=== PATIENT | female | born 1940 | race Caucasian/White ===

== ENCOUNTER 2020-12-03 10:17 | Outpatient (REF) | payer MEDICARE, SELFPAY ==
[2020-12-03 12:00] LABS: Anion Gap 13 (12-20); Blood Urea Nitrogen 15 mg/dL (9-16); Carbon Dioxide 31 mmol/L (22-29); Chloride 98 mmol/L (96-108); Estimated Glomerular Filt Rate > 60; Glucose Random 84 mg/dL (60-115); Sodium 138 mmol/L (135-145)
== END 2020-12-03 10:18 | disposition home or self-care (01) ==
LOC: HO.HMGCLDS 10:17
PROVIDERS: PCP Internal Medicine; Visit Provider Internal Medicine Cardiovascular Disease
DX: I10 Essential (primary) hypertension (principal)
CPT/HCPCS: 36415; 80048

== ENCOUNTER → 2021-01-02 14:04 | Outpatient (BNVA) | payer MEDICARE, SELFPAY | PROVIDERS: PCP Internal Medicine; Visit Provider Surgery Vascular Surgery | DX: I83.12 Varicose veins of left lower extremity with inflammation (principal) | CPT/HCPCS: 99202 ==

== ENCOUNTER 2021-02-15 09:32 | Outpatient (REF) | payer MEDICARE, SELFPAY ==
[2021-02-15 10:42] LABS: Alanine Aminotransferase 33 U/L (0-31); Albumin Level 3.9 g/dL (3.5-5.0); Alkaline Phosphatase 59 U/L (39-117); Anion Gap 11 (12-20); Aspartate Amino Transferase 22 U/L (5-31); Bilirubin Total 1.1 mg/dL (0.0-1.0); Blood Urea Nitrogen 18 mg/dL (9-16); Calcium 9.7 mg/dL (8.4-10.2); Carbon Dioxide 30 mmol/L (22-29); Chloride 105 mmol/L (96-108); Cholesterol 164 mg/dL; Estimated Glomerular Filt Rate 59; Glucose Fasting 80 mg/dL (60-99); HDL Cholesterol 63 mg/dL; LDL Cholesterol Calculated 88 mg/dl; Sodium 142 mmol/L (135-145); Total Protein 6.3 g/dL (6.5-8.0); Triglycerides 68 mg/dL
[2021-02-15 10:43] LABS: Magnesium 2.1 mg/dL (1.6-2.6)
== END 2021-02-15 09:33 | disposition home or self-care (01) ==
LOC: HO.LAB 09:32
PROVIDERS: Absent Provider Internal Medicine Cardiovascular Disease; PCP Internal Medicine; Referring Provider Internal Medicine; Visit Provider Internal Medicine
DX: E78.5 Hyperlipidemia, unspecified (principal); I10 Essential (primary) hypertension; I50.30 Unspecified diastolic (congestive) heart failure; H91.90 Unspecified hearing loss, unspecified ear
CPT/HCPCS: 36415; 80053; 80061; 83735

== ENCOUNTER 2021-02-24 10:35 | Outpatient (REF) | payer MEDICARE, SELFPAY ==
--- NOTE | ~2021-02-24 | US_ITS ---
EXAMINATION: RIGHT and LEFT LOWER EXTREMITY VENOUS ULTRASOUND (Reflux Exam) CLINICAL INDICATION: leg pain and varicose veins. COMPARISON: None. TECHNIQUE: Color flow triplex imaging and compression Doppler was performed to evaluate both the deep and the superficial systems bilaterally. To evaluate the superficial system, the examination was performed in the upright position. Color-flow Doppler ultrasound and compression ultrasound were utilized. In addition, maneuvers were utilized to demonstrate reflux. FINDINGS: 1. DEEP VENOUS ULTRASOUND OF THE RIGHT LOWER EXTREMITY: Respiratory variation, normal compression and augmented flow are noted in the right common femoral vein as well as the right popliteal vein and there is no evidence of deep venous thrombosis at these locations. There is no evidence of reflux in the deep system in either the common femoral vein or the popliteal vein. There is no evidence of a Pickard's cyst. 2. SUPERFICIAL ULTRASOUND WITH DOPPLER OF RIGHT LOWER EXTREMITY: The right great saphenous vein at the saphenofemoral junction measures 7 mm, at the mid thigh 2 mm, nipkx-ekt-ybwa 3 mm, mdbgt-fjw-qcbw 2 mm, at mid calf 2 mm and at the ankle measures 2 mm. There is right greater saphenous vein reflux measuring 3.3 seconds at the knee and 0.6 seconds below the knee. There is an accessory medial greater saphenous vein that measures 4 mm and does not demonstrate reflux. The right small saphenous vein measures 1-2 mm and shows no reflux. There is a varicosity at the knee that measures 4 mm and demonstrates 2.5 second reflux. There is a varicosity in the proximal calf that measures 3 mm and demonstrates 2.4 seconds reflux. 3. DEEP VENOUS ULTRASOUND OF THE LEFT LOWER EXTREMITY: Respiratory variation, normal compression and augmented flow are noted in the left common femoral vein as well as the left popliteal vein and there is no evidence of deep venous thrombosis at these locations. There is 1 second deep venous reflux in the common femoral vein and 0.8 seconds deep venous reflux in the popliteal vein.. There is no evidence of a Pickard's cyst. 4. SUPERFICIAL ULTRASOUND WITH DOPPLER OF LEFT LOWER EXTREMITY: Left great saphenous vein at the saphenofemoral junction measures 8 mm, at the mid thigh to mm, dmxer-xiz-gyln 3 mm, clpru-jvp-oywm 3 mm, at mid calf 2 mm and at the ankle measures 2 mm. There is left greater saphenous vein reflux from the ankle to above the knee measuring maximum 3.3 seconds. The left small saphenous vein measures 1 mm and shows no reflux. US/US venous duplex LE BI IMPRESSION: Right: No evidence of DVT or deep venous reflux. Right greater saphenous vein reflux measuring maximum 3.3 seconds at the knee. Left: No evidence of DVT. Deep venous reflux in the popliteal and common femoral veins. Left greater saphenous vein reflux measuring maximum 3.3 seconds above the knee.
== END 2021-02-24 10:36 | disposition home or self-care (01) ==
LOC: HO.US 10:35
PROVIDERS: Visit Provider Surgery Vascular Surgery
DX: I83.893 Varicose veins of bilateral lower extremities with other complications (principal); I83.12 Varicose veins of left lower extremity with inflammation
CPT/HCPCS: 93970

== ENCOUNTER → 2021-02-27 11:56 | Outpatient (BNVA) | payer MEDICARE, SELFPAY | PROVIDERS: PCP Internal Medicine; Visit Provider Surgery Vascular Surgery | DX: I83.12 Varicose veins of left lower extremity with inflammation (principal) | CPT/HCPCS: 99212 ==

== ENCOUNTER 2021-09-16 15:01 | Outpatient (REF) | payer MEDICARE, MEDICAID, SELFPAY ==
--- NOTE | ~2021-09-16 | XR_ITS ---
EXAMINATION: XR BILATERAL HIPS WITH AP PELVIS CLINICAL INFORMATION: Bilateral hip pain. Osteoarthritis. COMPARISON: None TECHNIQUE: AP view of the pelvis and 2 views of each hip were obtained. FINDINGS: No acute abnormality. No fracture or dislocation. Sacroiliac joints are normal. Hip joints are normal. Mild degenerative change of symphysis pubis. Marked degenerative spondylosis of the lower lumbar spine. There is a soft tissue ossification adjacent to the lesser trochanter of the left femur measuring approximately 3.8 x 2.2 cm in size. This could be due to old trauma. There is no abnormal periosteal reaction. There is no bone destruction. XR/XR hip BI w PEL1V IMPRESSION: Normal pelvis and bilateral hips. Marked degenerative spondylosis lower lumbar spine. Soft tissue ossification adjacent to the lesser trochanter of the left femur.
== END 2021-09-16 15:02 | disposition home or self-care (01) ==
LOC: HO.HMGCX 15:01
PROVIDERS: PCP Internal Medicine; Visit Provider Internal Medicine
DX: M16.12 Unilateral primary osteoarthritis, left hip (principal)
CPT/HCPCS: 73521

== ENCOUNTER 2021-09-19 11:52 | Outpatient (REF) | payer MEDICARE, MEDICAID, SELFPAY ==
[2021-09-19 15:18] LABS: Appearance Urine CLEAR; Color Urine YELLOW; Glucose Urine UA NEG (NEG); Leukocyte Esterase Urine NEG (NEG); Nitrite Urine NEG (NEG); PH 6.5 (5.0-8.0); Specific Gravity - Urine <= 1.005 (1.005-1.025); Urine Blood NEG (NEG); Urine Ketones NEG (NEG); Urine Protein NEG (NEG-TRACE)
== END 2021-09-19 11:53 | disposition home or self-care (01) ==
LOC: HO.HMGCLDS 11:52
PROVIDERS: Visit Provider Internal Medicine
DX: R30.0 Dysuria (principal)
CPT/HCPCS: 81003

== ENCOUNTER 2021-11-20 11:05 | Outpatient (REF) | payer MEDICARE, MEDICAID, SELFPAY ==
--- NOTE | ~2021-11-20 | XR_ITS ---
EXAMINATION: XR CHEST CLINICAL INFORMATION: Cough COMPARISON: None TECHNIQUE: 2 views of the chest were obtained. FINDINGS: Heart size within normal limits. Bibasilar atelectasis is present. There is flattening of the diaphragms suggesting underlying COPD. No focal consolidations, pleural effusions or lung masses are seen. XR/XR chest 2V IMPRESSION: No acute intrathoracic disease. Question of underlying COPD
== END 2021-11-20 11:06 | disposition home or self-care (01) ==
LOC: HO.HMGCX 11:05
PROVIDERS: PCP Internal Medicine; Visit Provider Internal Medicine
DX: R05.9 Cough, unspecified (principal)
CPT/HCPCS: 71046

== ENCOUNTER 2023-02-10 14:32 | Outpatient (AMB) | payer MEDICARE, MEDICAID, SELFPAY ==
--- NOTE | 2023-02-10 14:43 | MHC.OFFWIV ---
Intake Vital Signs 02/10/23 14:46 Height 5 ft 5 in BP 140/70 H Blood Pressure Location Rt brachial Position Sitting Pulse 80 Pulse Source Pulse Oximeter Pulse Oximetry (%) 96 Intake Visit Reasons: EP Cough(lobby) Intake Note: pt is here for cough Patient Tobacco Use Status: Never used Tobacco Allergies No Known Allergies Allergy (Verified 02/10/23 14:45) HPI HPI Comments History of Present Illness Details 82-year-old female presenting with dry cough, fatigue, malaise, fevers, chills for over a week worsening.? Patient reports her cough is not improved despite taking benzonatate.? Has not yet had antibiotics.? Patient denies chest pain, shortness of breath, fevers, chills, sputum production, nausea, vomiting, abdominal pain, headache, vision changes, dizziness and weakness.? No sick contacts. Physical exam benign.? Vital signs stable.? 96% on room air even after ambulation. This is likely bacterial bronchitis at this point versus allergies.? Unlikely pneumonia, PE anticoagulated, unlikely atypical presentation of ACS.? No signs of pneumothorax. No sign sof sepsis Plan doxycycline, albuterol, prednisone and Robitussin.? Advised her to stop taking benzonatate.? Robitussin can increase blood pressure however patient's blood pressure is stable at this time well controlled with blood pressure medicines.? Educated patient on diagnosis and treatment plan, answered all question, patient verbalizes understanding.? At this time patient will be discharged home, advised to return with new or worsening symptoms.? Educated on worrisome signs and symptoms and when to return.? At this time I feel comfortable COUNT INCLUDES THE [facility] Medical History Atrial fibrillation Cough Depression Diastolic CHF Dysuria Ear pain, left Edema GERD (gastroesophageal reflux disease) Hearing loss HTN (hypertension) Hyperlipidemia Light sensitivity Radiculopathy of cervical spine Sciatica Shoulder pain, right Venous insufficiency (chronic) (peripheral) Surgical History H/O colonoscopy No pertinent past surgical history Family History Father No problems noted. Mother No problems noted. Sister No problems noted. Sister No problems noted. Son No problems noted. Daughter No problems noted. Social History Housing: House Alcohol intake: current Patient Tobacco Use Status: Never used Tobacco e-Cigarette/Vaping Use: Never Used Current occupational status: retired Cognitive needs: No Hearing needs: No Vision needs: Yes Review of Systems Const Details: Constitutional : No Weight loss, + Fever, + Chills, + Fatigue, + Malaise ENT/Mouth : No sore throat, No Rhinorrhea Eyes: No Eye Pain, No Swelling, No Redness Cardiovascular : No Chest Pain, No SOB, No Dyspnea on Exertion, No Orthopnea, No Edema, No Palpitations Respiratory : + Cough, No Sputum, No Wheezing Gastrointestinal : No Nausea, No Vomiting, No Diarrhea, No Constipation, No abdominal Pain, No Hematochezia, No Melena Genitourinary : No Dysuria, No Urinary Frequency, No Hematuria, Musculoskeletal : No joint pain, No Myalgias, No Joint Swelling Skin : No Skin Lesions, No rash Neuro : No Weakness, No Numbness, No Dizziness, No Headache Psych : No Anxiety/Panic, No Depression All other systems reviewed and are negative All systems reviewed & are unremarkable except as noted in HPI and below Physical Exam Vital Signs: Last Vital Signs Pulse 80 02/10/23 14:46 BP 140/70 H 02/10/23 14:46 Pulse Ox 96 02/10/23 14:46 vss Appearance: Alert.? Oriented X3.? No acute distress.?Intermittent dry cough throught my exam Head: Normocephalic, atraumatic, no step-offs or deformities Eyes: Pupils equal, round and reactive to light.? ENT: Pharynx normal.? Neck: Normal inspection.? Neck supple.? CVS: Normal heart rate and rhythm.? Pulses normal.? Respiratory: No respiratory distress.? Breath sounds normal.? Abdomen: Soft and nontender.? Skin: Skin warm and dry.? Normal skin color.? Normal skin turgor.? Extremities: No lower extremity edema.? No calf ttp. 5/5 strength to bilateral upper and lower extremities Neuro: Oriented X 3.? No motor deficit.? No sensory deficit. CN 2-12 intact Results AMB Rapid Strep AMB Rapid Strep Negative Last Edit by Sb Anderson CMA on 02/10/23 14:58 Results Reviewed Results Reviewed: Laboratory Last Values Strep Scn Rapid Clinic Negative 02/10/23 14:57 Assessment & Plan Assessment & Plan (1) Bronchitis: Code(s): J40 - Bronchitis, not specified as acute or chronic Plan Take your medications as prescribed. If you were prescribed antibiotics today, it is important that you take your medication to their entirety, do not skip any doses, do not finish them early. Follow-up with your primary care provider this week. Return to the emergency department with new or worsening symptoms. Such as fevers, chills, chest pain, shortness of breath, nausea, vomiting, dizziness, headache, vision changes, lethargy In case of emergency call 911 Orders: Orders AMB Rapid Strep Screen Today Z13.9 - Encounter for screening, unspecified Medications: New doxycycline hyclate 100 mg PO BID 14 caps 0RF 7 days albuterol sulfate 90 mcg/actuation 2 puffs inhalation Q6H PRN 6.7 grams 0RF shortness of breath or wheezing prednisone 20 mg PO DAILY 5 tabs 0RF 5 days Coding Level of Care Code Est Pt Level 3 (47245) Diagnoses Bronchitis J40
[2023-02-10 14:46] VITALS: BP 140/70; PULSE 80; O2SAT 96
== END 2023-02-10 15:03 | disposition home or self-care (01) ==
PROVIDERS: PCP Internal Medicine; Visit Provider Physician Assistant
DX: J40 Bronchitis, not specified as acute or chronic (principal); Z13.9 Encounter for screening, unspecified; R50.9 Fever, unspecified
CPT/HCPCS: 87880; 99213

== ENCOUNTER 2023-02-19 10:12 | Outpatient (AMB) | payer MEDICARE, MEDICAID, SELFPAY ==
[2023-02-19 10:20] VITALS: BP 130/74; PULSE 86; O2SAT 99; BMI 27.3
--- NOTE | 2023-02-19 10:20 | A.OFFPC_ITS ---
Vital Signs 02/19/23 10:20 Height 5 ft 5 in Weight 164 lb BMI 27.3 BP 130/74 Blood Pressure Location Lt brachial Position Sitting Pulse 86 Pulse Source Pulse Oximeter Pulse Oximetry (%) 99 Oxygen Delivery Method Room Air Intake Visit Reasons: Follow up after walk in still coughing Intake Note: Pt is here today for a follow up visit after being seen in walk in. Pt states th at she is still coughing she has been having the cough for 3 weeks now. Allergies No Known Allergies Allergy (Verified 02/19/23 10:30) Medication List - Last Reconciled 02/19/23 by Alfreda Mathew MD albuterol sulfate 90 mcg/actuation 2 puffs inhalation Q6H PRN amoxicillin-pot clavulanate 875-125 mg 1 tab PO BID apixaban (Eliquis) 5 mg PO BID ascorbate calcium (vitamin C) 2 grams PO DAILY atorvastatin 40 mg PO DAILY calcium carbonate (Calcium 500) 1,000 mg PO DAILY cholecalciferol (vitamin D3) 25 mcg PO DAILY cranberry 500 mg PO DAILY dorzolamide-timolol 22.3-6.8 mg/mL ophthalmic (eye) fluoride (sodium) 1.1% 1 appl dental DAILY fluticasone propionate 50 mcg/actuation 1 spray intranasal BID PRN furosemide 20 mg PO BID gabapentin 100 mg PO TID garlic 5 mg PO DAILY oqjzdhjteze-T-Rlhlpixnfqjmmko (Triple Flex Mood, Joint JUVENAL-e) PO lactobacillus combination no.4 (Probiotic) 3,000 mmu cells PO DAILY lisinopril 40 mg PO DAILY mirtazapine 7.5 mg PO BEDTIME multivitamin 1 tab PO DAILY omega-3 fatty acids (Fish Oil Concentrate) 1,200 PO daily; omeprazole 40 mg PO DAILY spironolactone 12.5 mg PO DAILY valacyclovir 1,000 mg PO BID walker Walker with seat Tobacco use date assessed: 02/19/23 Fall risk assessment: 2 + Falls in past year Last assessed Fall Risk: 02/19/23 Dental Screening Dental Screen Date: 02/19/23 Did you have a dental visit in the last 12 months?: Yes Did you have a dental problem in the last 6 months where you did not have access to dental care?: No Was dental information given to patient?: Patient has dentist HPI Follow up after walk in still coughing HPI Details Pt presents complaining of persistent productive cough sinus congestion postnasal drip and poor appetite. Patient denies fever shortness of breath pleurisy. She took doxycycline and prednisone for 7 days. [facility] Medical History Atrial fibrillation Cough Depression Diastolic CHF Dysuria Ear pain, left Edema GERD (gastroesophageal reflux disease) Hearing loss HTN (hypertension) Hyperlipidemia Light sensitivity Radiculopathy of cervical spine Sciatica Shoulder pain, right Venous insufficiency (chronic) (peripheral) Surgical History H/O colonoscopy No pertinent past surgical history Family History (Updated 02/19/23 @ 10:32 by BRYAN Gregg) Father No problems noted. Mother No problems noted. Sister No problems noted. Sister No problems noted. Son No problems noted. Daughter No problems noted. Social History Housing: House Alcohol intake: current Patient Tobacco Use Status: Never used Tobacco e-Cigarette/Vaping Use: Never Used Current occupational status: retired Cognitive needs: No Hearing needs: No Vision needs: Yes Questionnaire Thrive Questionnaire Date Thrive assessed: 11/20/21 AUDIT C Alcohol Use Questionnaire (AUDIT-C) 1. How often do you have a drink containing alcohol?: Never 3. How often do you have six or more drinks on one occasion?: Never Total Score: 0 SHAHAB-7 AMB Questionnaire SHAHAB-7 Date SHAHAB - 7 assessed: 11/20/21 Source: Developed by Drs. Jax Alonso, Kimberly Brady, Arie Schwarz and colleagues, with an educational adelaide from [employer]. Review of Systems Const All systems reviewed & are unremarkable except as noted in HPI and below Reports no additional complaints Eyes Reports no additional complaints ENT Reports no additional complaints Card Reports no additional complaints Resp Reports no additional complaints GI Reports no additional complaints Physical exam (Primary Care) Vital Signs: Last Vital Signs Pulse 86 02/19/23 10:20 BP 130/74 02/19/23 10:20 Pulse Ox 99 02/19/23 10:20 Oxygen Delivery Method Room Air 02/19/23 10:20 BMI result Body Mass Index 27.3 Tobacco/Smoking Status: Tobacco use Status Tobacco use date assessed 02/19/23 02/19/23 10:33 Patient Tobacco Use Status Never used Tobacco 02/19/23 10:33 e-Cigarette/Vaping Use Never Used 02/19/23 10:20 Thrive Assessment: Date of Thrive Assessment Date Thrive assessed 11/20/21 02/19/23 10:20 Const General: no acute distress HENMT Head: Yes normal to inspection Ears: TM's normal bilaterally General nose exam: Abnormal mucous membranes and turbinates present erythematous and Nasal discharge present Throat: Yes postnasal drainage Eyes General: appearance normal, both eyes and all related structures Resp Effort & Inspection: normal respiratory effort Auscultation: crackles bilateral and diminished lung sounds Cardio Rhythm: regular rhythm Heart sounds: S1 normal heart sound present and S2 normal heart sound present Assessment and Plan Assessment & Plan (1) Atrial fibrillation: Comment: f/u Dr. Marin , s/p multiple ablation, Code(s): I48.91 - Unspecified atrial fibrillation (2) Hyperlipidemia: Code(s): E78.5 - Hyperlipidemia, unspecified Plan: Continue statin (3) HTN (hypertension): Code(s): I10 - Essential (primary) hypertension Plan: Continue current medications (4) Sinusitis: Code(s): J32.9 - Chronic sinusitis, unspecified Plan: Augmentin 875 twice a day for 7 days prescribed and supportive care discussed with patient. Orders: Orders Lipid Panel 6 Months E55.9 - Vitamin D deficiency, unspecified, E78.5 - H yperlipidemia, unspecified, I10 - Essential (primary) hypertension, I48.91 - Unspecified atrial fibrillation Comprehensive [place]. Panel Fast 6 Months E55.9 - Vitamin D deficiency, unspecified, E78.5 - Hyperlipidemia, unspecified, I10 - Essential (primary) hypertension, I48.91 - Unspecified atrial fibrillation Complete Blood Count Auto Diff 6 Months E55.9 - Vitamin D deficiency, unspecified, E78.5 - Hyperlipidemia, unspecified, I10 - Essential (primary) hypertension, I48.91 - Unspecified atrial fibrillation TSH reflex Free T4 6 Months E55.9 - Vitamin D deficiency, unspecified, E78.5 - Hyperlipidemia, unspecified, I10 - Essential (primary) hypertension, I48.91 - Unspecified atrial fibrillation IRON PROFILE 6 Months E55.9 - Vitamin D deficiency, unspecified, E78.5 - Hyperlipidemia, unspecified, I10 - Essential (primary) hypertension, I48.91 - Unspecified atrial fibrillation Vitamin D 25-OH Total 6 Months E55.9 - Vitamin D deficiency, unspecified, E78.5 - Hyperlipidemia, unspecified, I10 - Essential (primary) hypertension, I48.91 - Unspecified atrial fibrillation Medications: New amoxicillin-pot clavulanate 875-125 mg 1 tab PO BID 14 tabs 0RF Coding Level of Care Code Est Pt Level 3 (69497) Diagnoses Atrial fibrillation I48.91 Hyperlipidemia E78.5 HTN (hypertension) I10 Sinusitis J32.9
== END 2023-02-19 11:11 | disposition home or self-care (01) ==
PROVIDERS: PCP Internal Medicine; Visit Provider Internal Medicine
DX: I48.91 Unspecified atrial fibrillation (principal); E78.5 Hyperlipidemia, unspecified; I10 Essential (primary) hypertension; J32.9 Chronic sinusitis, unspecified
CPT/HCPCS: 99213

== ENCOUNTER 2023-08-04 09:37 | Outpatient (REF) | payer MEDICARE, MEDICAID, SELFPAY | END 2023-08-04 09:38 | disposition home or self-care (01) | LOC: HO.HMGCLDS 09:37 | PROVIDERS: PCP Internal Medicine; Visit Provider Internal Medicine | DX: I48.91 Unspecified atrial fibrillation (principal); I10 Essential (primary) hypertension; E78.5 Hyperlipidemia, unspecified; E55.9 Vitamin D deficiency, unspecified | CPT/HCPCS: 36415; 80053; 80061; 82306; 83540; 84443; 85025 ==

== ENCOUNTER 2023-08-10 13:03 | Outpatient (AMB) | payer MEDICARE, MEDICAID, SELFPAY ==
[2023-08-10 13:50] VITALS: BP 142/86; PULSE 72; O2SAT 97; BMI 29.3
--- NOTE | 2023-08-10 13:50 | AM.OFFVISMDC ---
Intake Vital Signs 08/10/23 13:50 Height 5 ft 5 in Weight 176 lb BMI 29.3 BP 142/86 H Blood Pressure Location Lt brachial Position Sitting Pulse 72 Pulse Source Pulse Oximeter Pulse Oximetry (%) 97 Oxygen Delivery Method Room Air Intake Visit Reasons: AWV Intake Note: Pt is here today for AWV. Pt states that she needs a refill on Valacyclovir. Pt also states that she was sick and now she only has sore throat and cough. Allergies No Known Allergies Allergy (Verified 08/10/23 14:03) Medication List - Last Reconciled 08/10/23 by Alfreda Mathew MD albuterol sulfate 90 mcg/actuation 2 puffs inhalation Q6H PRN apixaban (Eliquis) 5 mg PO BID ascorbate calcium (vitamin C) 2 grams PO DAILY atorvastatin 40 mg PO DAILY calcium carbonate (Calcium 500) 1,000 mg PO DAILY cranberry 500 mg PO DAILY dorzolamide-timolol 22.3-6.8 mg/mL ophthalmic (eye) esomeprazole magnesium 40 mg PO BID fluoride (sodium) 1.1% 1 appl dental DAILY fluticasone propionate 50 mcg/actuation 1 spray intranasal BID PRN furosemide 20 mg PO DAILY gabapentin 100 mg PO BID garlic 5 mg PO DAILY pccyjpybkvg-B-Rlqldukcyixmwmu (Triple Flex Mood, Joint JUVENAL-e) PO lactobacillus combination no.4 (Probiotic) 3,000 mmu cells PO DAILY lisinopril 40 mg PO DAILY mirtazapine 7.5 mg PO BEDTIME PRN multivitamin 1 tab PO DAILY omega-3 fatty acids (Fish Oil Concentrate) 1,200 PO daily; spironolactone 12.5 mg PO DAILY valacyclovir 1,000 mg PO BID walker Walker with seat HPI AWV HPI Details Initiated the conversation about Advanced Directives. Advanced Directives help? patients prepare for current and future decisions about their medical treatment? and place of care. Discussed with patient that it is a process where a patients? current condition and prognosis are reviewed, their wishes for information? regarding their illness are elicited, and likely medical dilemmas are presented? and options discussed. The form can be amended as needed, reviewed yearly and? make changes as needed IPPE/AWV ? year old presents? for her ? Annual? Wellness Visit, initial visit.? Medical / Social History Reviewed? Past Medical History ?Yes? . ? [place]? of Care / Care Team list updated ?Yes . ? Surgical/Hospitalization? History ?Yes . ? Current Medications? (including OTC and supplements) ?Yes . ? Family History ?Yes? . ? Tobacco? Control form ?Yes . ? AUDIT-C (Alcohol use) form? ?Yes . ? Illicit drug use in Social? History ?Yes . ? Current diagnosis of? depression? ?No ? Appropriate PHQ2/PHQ9? completed ?Yes . ? Data entered by ?Medical? Floorleader and reviewed by provider ? Fall Risk ? Fall? History? Have you had any falls with? injury in the past year? ?No . ? Have you had two or more? falls in the past year? ?No . ? Fall Risk Assessment: ?No? falls in the past year . ? HRA filled out by? the patient, reviewed by Provider and scanned. ? IPPE/AWV ? Balance? [place]? ?Yes . ? Tandem? walk ?Yes . ? Walk and? Turn ?Yes . ? Rise from? sit to stand ?Yes . ?Vision? Corrective? lens ?Yes ? Vision? screen ? Up-to-date, has an appointment [] for vision? screening and glaucoma screening ?Hearing? Whisper? test ?pass .? Initiated the conversation about Advanced Directives. Advanced Directives help? patients prepare for current and future decisions about their medical treatment? and place of care. Discussed with patient that it is a process where a patients? current condition and prognosis are reviewed, their wishes for information? regarding their illness are elicited, and likely medical dilemmas are presented? and options discussed. The form can be amended as needed, reviewed yearly and? make changes as needed Written? Plan?Completed. See Patient? Documents. [facility] Medical History (Updated 08/10/23 @ 16:12 by Alfreda Mathew MD) Edema Cough Dysuria Shoulder pain, right Venous insufficiency (chronic) (peripheral) Sciatica Depression Ear pain, left Hearing loss Radiculopathy of cervical spine GERD (gastroesophageal reflux disease) Light sensitivity Hyperlipidemia Diastolic CHF HTN (hypertension) Atrial fibrillation Surgical History H/O colonoscopy No pertinent past surgical history Family History Father No problems noted. Mother No problems noted. Sister No problems noted. Sister No problems noted. Son No problems noted. Daughter No problems noted. Social History Housing: House Alcohol intake: current Patient Tobacco Use Status: Never used Tobacco e-Cigarette/Vaping Use: Never Used Current occupational status: retired Cognitive needs: No Hearing needs: No Vision needs: Yes Questionnaire Medicare Wellness Checkup What is your age?: 79 or older What gender do you identify with?: female During the past 4 weeks, how much have you been bothered by emotional problems such as feeling anxious, depressed, irritable, sad or downhearted, and blue?: slightly During the past 4 weeks, has your physical & emotional health limited your social activities with family, friends, neighbors, or groups?: quite a bit During the past 4 weeks, how much bodily pain have you generally had?: moderate pain During the past 4 weeks, was someone available to help you if you needed & wanted help?: yes, quite a bit During the past 4 weeks, what was the hardest physical activity you could do for at least 2 minutes?: very light Can you get to places out of walking distance without help? (For eg., can you travel alone on buses, taxis or drive your car?): No Can you go shopping for groceries or clothes without someone's help?: No Can you prepare your own meals?: Yes Can you do your housework without help?: No Because of any health problems, do you need the help of another person with your personal care needs such as eating, bathing, dressing or getting around the house?: No Can you handle your own money without help?: No During the past 4 weeks, how would you rate your health in general?: poor During the past 4 weeks how have things been going for you?: pretty bad Are you having difficulties driving your car?: not applicable, I don't use a car Do you always fasten your seat belt when you are in a car?: yes, usually During past 4 weeks, have you been bothered by the following: never: Sexual problems?, sometimes: Problems using the telephone? and always: Falling or dizzy when standing up, Trouble eating well?, Teeth or denture problems? and Tiredness or fatigue? Have you fallen 2 or more times in the past year?: Yes Are you afraid of falling?: Yes Are you a smoker?: no During the past 4 weeks, how many drinks of wine, beer, or other alcoholic beverages did you have?: no alcohol at all Do you exercise for about 20 minutes 3 or more times a week?: yes, some of the time Have you been given information to help with the following?: no: Hazards in your house that might hurt you? and no: Keeping track of your medications? How often do you have trouble taking medicines the way you have been told to take them?: I always take medicine as prescribed How confident are you that you can control & manage most of your health problems?: not very confident What is your race?: White Mini Mental State Exam (MMSE) Orientation What is the (year) (season) (date) (day) (month)?: year, season, date, day and month Where are we (state) (county) (town or city) (hospital) (floor)?: state, county, town or city, hospital/clinic and floor Registration Name of 3 unrelated objects clearly and slowly, then ask patient to repeat all 3 of them. (1st repeat determines score. Make sure they can repeat all three): object 1, object 2 and object 3 Attention & Calculation (CHOOSE ONE) Spell WORLD backwards (DLROW): 5 letters Recall Ask patient to repeat the 3 items from question #3.: object 1, object 2 and object 3 Language Show patient a wristwatch & ask what it is. Repeat for pencil.: watch and pencil Ask the patient to repeat the phrase 'No ifs, ands, or buts' after you.: correct Ask the patient to 'take a piece of paper with their right hand' 'fold paper in half' 'place paper on floor': take paper in right hand and fold paper in half Print the sentence 'CLOSE YOUR EYES' on a piece. If patient actually closes eyes then score.: followed written direction Give patient a blank piece of paper & ask to write a sentence. Score if it contains a noun & verb.: sentence contains subject and verb Score Score: 28 Activity of Daily Living Bathing - sponge bath, tub bath or shower: receives no assistance (gets in/out by self, if usual bathing means Dressing - getting clothes from closets & drawers, including inner/outer garments & fasteners.: gets clothes & gets completely dressed without help Toileting - going to the 'toilet room' for urine/bowel elimination & cleaning self/arranging clothes: goes to toilet room, cleans self, arranges clothes without help Transfer: moves in & out of bed and chair without help (may use support object) Continence: controls urination/bowel movements completely by self Feeding: feeds self without help Total Score: 0 Information obtained from: patient Using telephone: independent Traveling: dependent Shopping: dependent Preparing meals: independent Housework: dependent Taking medicine: dependent Managing money: dependent PHQ-9 Over the last 2 weeks, how often have you been bothered by any of the following problems? 1. Little interest or pleasure in doing things: more than half the days 2. Feeling down, depressed, or hopeless: several days 3. Trouble falling or staying asleep, or sleeping too much: nearly every day 4. Feeling tired or having little energy: nearly every day 5. Poor appetite or overeating: nearly every day 6. Feeling bad about yourself - or that you are a failure or have let yourself or your family down: several days 7. Trouble concentrating on things, such as reading the newspaper or watching television: nearly every day 8. Moving or speaking so slowly that other people could have noticed. Or the opposite - being so fidgety or restless that you have been moving around a lot more than usual: more than half the days 9. Thoughts that you would be better off or of hurting yourself in some way: not at all Total score: 18 Depression Screening Interpretation: Positive Depression Screening Done: Yes 93980 - PHQ-9 Billing: Yes Source: Developed by Drs. Jax Alonso, Kimberly Brady, Arie Schwarz and colleagues, with an educational adelaide from [email or web address]. Review of Systems Const All systems reviewed & are unremarkable except as noted in HPI and below Reports no additional complaints Eyes Reports no additional complaints ENT Reports no additional complaints Card Reports no additional complaints Resp Reports no additional complaints GI Reports no additional complaints Reports no additional complaints Physical Exam Vital Signs: Last Vital Signs Pulse 72 08/10/23 13:50 BP 142/86 H 08/10/23 13:50 Pulse Ox 97 08/10/23 13:50 Oxygen Delivery Method Room Air 08/10/23 13:50 BMI result Body Mass Index 29.3 Const General: no acute distress HEENT Head: Yes normal to inspection Ears: hearing grossly normal bilaterally Face and sinus: Yes normal facial exam Eyes General: appearance normal, both eyes and all related structures Neck Neck: Yes no lymphadenopathy and Yes supple Resp Effort & Inspection: normal respiratory effort Auscultation: clear to auscultation bilaterally Cardio Rhythm: regular rhythm Heart sounds: S1 normal heart sound present and S2 normal heart sound present GI Inspection: Yes normal to inspection Palpation (GI): Soft to palpation Percussion: Yes normal to percussion Auscultation: normal bowel sounds Extrem General: Yes no clubbing, cyanosis or edema Assessment & Plan Assessment & Plan (1) Atrial fibrillation: Comment: f/u Dr. Marin , s/p multiple ablations. s/p pacemaker Code(s): I48.91 - Unspecified atrial fibrillation Plan: Continue Eliquis (2) Hyperlipidemia: Code(s): E78.5 - Hyperlipidemia, unspecified Plan: Continue statin (3) HTN (hypertension): Comment: f/u with Dr. Borrero for meds adjustment Code(s): I10 - Essential (primary) hypertension Plan: Continue current medications and follow-up with Cardiology (4) Annual physical exam: Code(s): Z00.00 - Encounter for general adult medical examination without abnormal findings Plan: Well-balanced diet regular physical activity discussed with the patient Medications: New azithromycin For 250 mg dose pack: take 500 mg today (day 1), then 250 mg for 4 days (days 2-5) PO 6 tabs 0RF valacyclovir (Valtrex) 2,000 mg (2 x 1 gram) PO Q12H 1 day 4 tabs 5RF Changed From gabapentin 100 mg PO TID 270 caps 1RF To gabapentin 100 mg PO BID From mirtazapine 7.5 mg PO BEDTIME 90 tabs 3RF To mirtazapine 7.5 mg PO BEDTIME PRN Quality Reporting (2019) Depression/Bipolar (159/160/161/177) PHQ-9: Total score: 18 Coding Level of Care Code Medicare Subsequent (G0439) Diagnoses Atrial fibrillation I48.91 Hyperlipidemia E78.5 HTN (hypertension) I10 Annual physical exam Z00.00 CPT Codes Advance Care Planning - Time spent: 1-15 minutes, not on file ([id number]) Advance Care Planning Advance Care Planning discussion: Exists, not on file Forms completed: Health Care Proxy Time spent: 1-15 minutes, not on file
== END 2023-08-10 15:05 | disposition home or self-care (01) ==
PROVIDERS: PCP Internal Medicine; Visit Provider Internal Medicine
DX: I48.91 Unspecified atrial fibrillation (principal); E78.5 Hyperlipidemia, unspecified; I10 Essential (primary) hypertension; Z00.00 Encounter for general adult medical examination without abnormal findings
CPT/HCPCS: 1124F; G0439

== ENCOUNTER 2023-12-01 15:11 | Outpatient (AMB) | payer MEDICARE, MEDICAID, SELFPAY ==
--- NOTE | 2023-12-01 15:15 | AM.OFFWIN_ITS ---
Intake Vital Signs 12/01/23 15:17 Height 5 ft 5 in BP 136/76 Blood Pressure Location Rt brachial Position Sitting Pulse 72 Pulse Source Pulse Oximeter Temp 99.2 F Temp Source Oral Pulse Oximetry (%) 97 Intake Visit Reasons: EP bad cough / back pain Intake Note: pt is here for bad cough and middle back pain Patient Tobacco Use Status: Never used Tobacco Allergies No Known Allergies Allergy (Verified 12/01/23 15:18) Do you need a note to return to daycare/school/sports/work: No HPI HPI Comments History of Present Illness Details 83 y/o female patient who presents to [facility] in clinic with c/o cough and lower back pain. She has been using OTC remedies with no relief. Symptoms started last Wednesday. Denies CP, SOB or wheezing. Denies fevers, chills, nausea and vomiting. Pt c/o lower back pain associated with Spasm.Denies bladder or bowel symptoms. [facility] Medical History (Updated 08/10/23 @ 16:12 by Alfreda Mathew MD) Edema Cough Dysuria Shoulder pain, right Venous insufficiency (chronic) (peripheral) Sciatica Depression Ear pain, left Hearing loss Radiculopathy of cervical spine GERD (gastroesophageal reflux disease) Light sensitivity Hyperlipidemia Diastolic CHF HTN (hypertension) Atrial fibrillation Surgical History H/O colonoscopy No pertinent past surgical history Family History Father No problems noted. Mother No problems noted. Sister No problems noted. Sister No problems noted. Son No problems noted. Daughter No problems noted. Social History Housing: House Alcohol intake: current Patient Tobacco Use Status: Never used Tobacco e-Cigarette/Vaping Use: Never Used Current occupational status: retired Cognitive needs: No Hearing needs: No Vision needs: Yes Review of Systems Const All systems reviewed & are unremarkable except as noted in HPI and below Physical Exam Vital Signs: Last Vital Signs Temp 99.2 F 12/01/23 15:17 Pulse 72 12/01/23 15:17 BP 136/76 12/01/23 15:17 Pulse Ox 97 12/01/23 15:17 Const General: comfortable and no acute distress Orientation/consciousness: patient oriented x3 Limitations: ambulation with walker HEENT Head: Yes normocephalic Ears: external ears normal and TM's normal bilaterally General nose exam: Normal external nose present and Abnormal mucous membranes and turbinates present pale Face and sinus: Yes sinuses nontender Mouth: moist mucous membranes Throat: Yes posterior oropharynx normal Resp Effort & Inspection: normal respiratory effort and able to speak in complete sentences Auscultation: clear to auscultation bilaterally, no crackles, no rales, no rhonchi and no wheezes Cardio Rate: regular rate Rhythm: regular rhythm Back/Spine/Pelvis Back: back tenderness Thoracic/Lumbar Spine: pain with thoraco-lumbar ROM, thoracic spinal tenderness and lumbar spinal tenderness Neuro Other: Ambulation with one assist - uses a walker General: patient oriented x3 and moves all extremities Psych Speech and movement: Normal speech and movement present Results AMB Urinalysis, Automated UA Leukoctes 0 Pamela/uL Last Edit by Sb Anderson CMA on 12/01/23 16:02 UA Nitrite Negative Last Edit by Sb Anderson CMA on 12/01/23 16:02 UA Urobilinogen 0.2 mg/dL Last Edit by Sb Anderson CMA on 12/01/23 16 :02 UA Protein 0 mg/dL Last Edit by Sb Anderson CMA on 12/01/23 16:02 UA pH 6.0 Last Edit by Sb Anderson CMA on 12/01/23 16:02 UA Blood 10 Christian/uL Last Edit by Sb Anderson CMA on 12/01/23 16:02 UA Specific [place] 1.015 Last Edit by Sb Anderson CMA on 12/01/23 16:02 UA Ketone Negative Last Edit by Sb Anderson CMA on 12/01/23 16:02 UA Bilirubin 1 mg/dL Last Edit by Sb Anderson CMA on 12/01/23 16:02 UA Glucose 0 mg/dL Last Edit by Sb Anderson CMA on 12/01/23 16:02 Results Reviewed Results Reviewed: Laboratory Last Values Urine pH (Auto) 6.0 12/01/23 16:01 Specific [place] (Auto) 1.015 12/01/23 16:01 Urine Protein (Auto) 0 mg/dL 12/01/23 16:01 Glucose (UA)(Auto) 0 mg/dL 12/01/23 16:01 Urine Ketones (Auto) Negative 12/01/23 16:01 Urine Blood (Auto) 10 Christian/uL 12/01/23 16:01 Urine Nitrite (Auto) Negative 12/01/23 16:01 Urine Bilirubin (Auto) 1 mg/dL 12/01/23 16:01 Urine Urobilinogen (Auto) 0.2 mg/dL 12/01/23 16:01 Leukocyte Esterase (Auto) 0 Pamela/uL 12/01/23 16:01 Assessment & Plan Assessment & Plan (1) Cough in adult: Code(s): R05.9 - Cough, unspecified Plan: - OTC cough remedies - Warm fluids with honey (2) Low back pain: Code(s): M54.50 - Low back pain, unspecified Qualifiers: Back pain laterality: midline Chronicity: acute Sciatica presence: without sciatica Qualified Code(s): M54.50 - Low back pain, unspecified Plan: - Lidocaine patches - Acetaminophen for pain relief - IceHot Orders: Orders AMB Urinalysis Automated Today Z13.9 - Encounter for screening, unspecified Medications: New benzonatate 100 mg PO TID 30 caps 0RF R05.9 - Cough, unspecified TK-rokubhuzuxuks-XD 10-325-200 mg/15 mL (Coricidin HBP Max Yxvc-Vfh-Hql) do not exceed 5 doses per 24 hrs 30 mL PO Q4-6H PRN 355 mL 0RF cough R05.9 - Cough, unspecified lidocaine 5% leave on most painful area for up to 12 hrs 1 patch topical DAILY 30 ea 0RF M54.50 - Low back pain, unspecified cyclobenzaprine 5 mg PO BEDTIME 10 tabs 0RF M54.50 - Low back pain, unspecified Coding Level of Care Code Est Pt Level 3 (06170) Diagnoses Cough in adult R05.9 Acute midline low back pain without sciatica M54.50 Back pain laterality: midline Chronicity: acute Sciatica presence: without sciatica Time Spent (min) 15
[2023-12-01 15:17] VITALS: BP 136/76; PULSE 72; TEMP 37.3; O2SAT 97
== END 2023-12-01 16:34 | disposition home or self-care (01) ==
PROVIDERS: PCP Internal Medicine; Visit Provider Nurse Practitioner Family
DX: R05.9 Cough, unspecified (principal); M54.50 Low back pain, unspecified
CPT/HCPCS: 81003; 99213

== ENCOUNTER 2024-02-22 12:01 | Outpatient (AMB) | payer MEDICARE, MEDICAID, SELFPAY ==
[2024-02-22 12:04] VITALS: BP 140/74; PULSE 98; O2SAT 98; BMI 27.2
--- NOTE | 2024-02-22 12:04 | MHC.OFFWIV ---
Intake Vital Signs 02/22/24 12:04 Height 5 ft 5 in Weight 163 lb 8 oz BMI 27.2 BP 140/74 H Blood Pressure Location Lt brachial Position Sitting Pulse 98 Pulse Source Pulse Oximeter Pulse Oximetry (%) 98 Oxygen Delivery Method Room Air Intake Visit Reasons: EP ?UTI Patient Tobacco Use Status: Never used Tobacco Allergies No Known Allergies Allergy (Verified 02/22/24 12:05) Medication List - Last Reconciled 02/22/24 by Ajith Payne MD albuterol sulfate 90 mcg/actuation 2 puffs inhalation Q6H PRN amlodipine 5 mg PO DAILY apixaban (Eliquis) 5 mg PO BID ascorbate calcium (vitamin C) 2 grams PO DAILY atorvastatin 40 mg PO DAILY calcium carbonate (Calcium 500) 1,000 mg PO DAILY cranberry 500 mg PO DAILY dorzolamide-timolol 22.3-6.8 mg/mL ophthalmic (eye) esomeprazole magnesium 40 mg PO BID fluoride (sodium) 1.1% 1 appl dental DAILY fluticasone propionate 50 mcg/actuation 1 spray intranasal BID PRN furosemide 20 mg PO DAILY gabapentin 100 mg PO TID garlic 5 mg PO DAILY puhupkjjhgf-N-Dgwtigdcaqhtpyz (Triple Flex Mood, Joint JUVENAL-e) PO hydralazine 25 mg PO BID lactobacillus combination no.4 (Probiotic) 3,000 mmu cells PO DAILY losartan 50 mg PO BID mirtazapine 7.5 mg PO BEDTIME PRN multivitamin 1 tab PO DAILY omega-3 fatty acids (Fish Oil Concentrate) 1,200 PO daily; valacyclovir 500 mg PO BID walker Walker with seat Do you need a note to return to daycare/school/sports/work: No HPI EP ?UTI HPI Details Patient is 83 year female came in today to be evaluated for possible bladder infection Patient is symptomatic with a past 2 days With frequency urgency, and suprapubic pressure He has no new back pain, there is no fever no chills there is no nausea no vomiting She does have a scratchy throat UA done today shows no signs of infection however she does have 2+ glucose in the urine Reviewing the chart I see she is taking no diabetic medication Patient also gives me history of no diabetes We did spot glucose and hemoglobin A1c which came back at Seventy-two and 6.1 respectively Reports explained to patient and her daughter They will be booking appointment with the primary care to further discuss it I have sent cefuroxime for pharyngitis and as well as urinary symptoms [facility] Medical History Edema Cough Dysuria Shoulder pain, right Venous insufficiency (chronic) (peripheral) Sciatica Depression Ear pain, left Hearing loss Radiculopathy of cervical spine GERD (gastroesophageal reflux disease) Light sensitivity Hyperlipidemia Diastolic CHF HTN (hypertension) Atrial fibrillation Surgical History H/O colonoscopy No pertinent past surgical history Family History Father No problems noted. Mother No problems noted. Sister No problems noted. Sister No problems noted. Son No problems noted. Daughter No problems noted. Social History Housing: House Alcohol intake: current Patient Tobacco Use Status: Never used Tobacco e-Cigarette/Vaping Use: Never Used Current occupational status: retired Cognitive needs: No Hearing needs: No Vision needs: Yes Review of Systems Const All systems reviewed & are unremarkable except as noted in HPI and below Physical Exam Vital Signs: Last Vital Signs Pulse 98 02/22/24 12:04 BP 140/74 H 02/22/24 12:04 Pulse Ox 98 02/22/24 12:04 Oxygen Delivery Method Room Air 02/22/24 12:04 BMI result Body Mass Index 27.2 Const General: no acute distress Orientation/consciousness: patient oriented x3 HEENT Other: No exudate, uvula midline, mild erythema Eyes General: appearance normal, both eyes and all related structures Resp Effort & Inspection: normal respiratory effort and able to speak in complete sentences GI Other: Mild suprapubic pressure General: Yes no CVA tenderness Back/Spine/Pelvis Back: no CVA tenderness Neuro General: patient oriented x3 Psych Mental Status: mental status grossly normal Results AMB Urinalysis, Automated UA Leukoctes 0 Pamela/uL Last Edit by Sb Anderson CMA on 02/22/24 12:13 UA Nitrite Negative Last Edit by Sb Anderson CMA on 02/22/24 12:13 UA Urobilinogen 0.2 mg/dL Last Edit by Sb Anderson CMA on 02/22/24 12:13 UA Protein 0 mg/dL Last Edit by Sb Anderson CMA on 02/22/24 12:13 UA pH 6.0 Last Edit by Sb Anderson CMA on 02/22/24 12:13 UA Blood 0 Christian/uL Last Edit by Sb Anderson CMA on 02/22/24 12:13 UA Specific Baylis 1.010 Last Edit by Sb Anderson CMA on 02/22/24 12:13 UA Ketone Negative Last Edit by Sb Anderson CMA on 02/22/24 12:13 UA Bilirubin 0 mg/dL Last Edit by Sb Anderson CMA on 02/22/24 12:13 UA Glucose 500 mg/dL Last Edit by Sb Anderson CMA on 02/22/24 12:13 AMB Random Glucose (hemocue) AMB Random Glucose (hemocue) 72 mg/dL Last Edit by Sb Anderson CMA on 02/22/24 12:26 Results Reviewed Results Reviewed: Laboratory Last Values Random Glu (Clinic) 72 mg/dL 02/22/24 12:25 Urine pH (Auto) 6.0 02/22/24 12:13 Specific Baylis (Auto) 1.010 02/22/24 12:13 Urine Protein (Auto) 0 mg/dL 02/22/24 12:13 Glucose (UA)(Auto) 500 mg/dL 02/22/24 12:13 Urine Ketones (Auto) Negative 02/22/24 12:13 Urine Blood (Auto) 0 Christian/uL 02/22/24 12:13 Urine Nitrite (Auto) Negative 02/22/24 12:13 Urine Bilirubin (Auto) 0 mg/dL 02/22/24 12:13 Urine Urobilinogen (Auto) 0.2 mg/dL 02/22/24 12:13 Leukocyte Esterase (Auto) 0 Pamela/uL 02/22/24 12:13 Assessment & Plan Assessment & Plan (1) Frequency of micturition: Code(s): R35.0 - Frequency of micturition (2) Urgency of micturition: Code(s): R39.15 - Urgency of urination (3) Glucose found in urine on examination: Code(s): R81 - Glycosuria (4) Throat irritation: Code(s): J39.2 - Other diseases of pharynx Plan Patient is 83 year female came in today to be evaluated for possible bladder infection Patient is symptomatic with a past 2 days With frequency urgency, and suprapubic pressure He has no new back pain, there is no fever no chills there is no nausea no vomiting She does have a scratchy throat UA done today shows no signs of infection however she does have 2+ glucose in the urine Reviewing the chart I see she is taking no diabetic medication Patient also gives me history of no diabetes We did spot glucose and hemoglobin A1c which came back at Seventy-two and 6.1 respectively Reports explained to patient and her daughter They will be booking appointment with the primary care to further discuss it I have sent cefuroxime for pharyngitis and as well as urinary symptoms Orders: Orders AMB Urinalysis Automated Today Z13.9 - Encounter for screening, unspecified AMB Random Glucose (hemocue) Today Z13.9 - Encounter for screening, unspecified AMB Hemoglobin A1c Today Z13.9 - Encounter for screening, unspecified Medications: New cefuroxime axetil 500 mg PO BID 5 days 10 tabs 0RF Coding Level of Care Code Est Pt Level 4 (97274) Diagnoses Frequency of micturition R35.0 Urgency of micturition R39.15 Glucose found in urine on examination R81 Throat irritation J39.2
== END 2024-02-22 13:36 | disposition home or self-care (01) ==
PROVIDERS: PCP Internal Medicine; Visit Provider Internal Medicine
DX: R35.0 Frequency of micturition (principal); R39.15 Urgency of urination; R81 Glycosuria; J39.2 Other diseases of pharynx; Z13.9 Encounter for screening, unspecified
CPT/HCPCS: 81003; 82948; 83036; 99214

== ENCOUNTER 2024-02-24 11:06 | Outpatient (AMB) | payer MEDICARE, MEDICAID, SELFPAY ==
--- NOTE | 2024-02-24 11:08 | A.OFFPC_ITS ---
Vital Signs 02/24/24 11:10 Height 5 ft 5 in Weight 165 lb BMI 27.5 BP 126/64 Blood Pressure Location Lt brachial Position Sitting Pulse 76 Pulse Source Pulse Oximeter Pulse Oximetry (%) 98 Oxygen Delivery Method Room Air Intake Visit Reasons: Follow up walk-in Abnormal Sugar count Intake Note: Pt is here today for a follow up visit after being seen in walk in. Allergies No Known Allergies Allergy (Verified 02/24/24 11:12) Medication List - Last Reconciled 02/24/24 by Alfreda Mathew MD albuterol sulfate 90 mcg/actuation 2 puffs inhalation Q6H PRN amlodipine 5 mg PO DAILY apixaban (Eliquis) 5 mg PO BID ascorbate calcium (vitamin C) 2 grams PO DAILY atorvastatin 40 mg PO DAILY calcium carbonate (Calcium 500) 1,000 mg PO DAILY cefuroxime axetil 500 mg PO BID 5 days cranberry 500 mg PO DAILY dorzolamide-timolol 22.3-6.8 mg/mL ophthalmic (eye) esomeprazole magnesium 40 mg PO BID fluoride (sodium) 1.1% 1 appl dental DAILY fluticasone propionate 50 mcg/actuation 1 spray intranasal BID PRN furosemide 20 mg PO DAILY gabapentin 100 mg PO TID garlic 5 mg PO DAILY pszfkbgeixq-N-Nsxemmzcwxizqnk (Triple Flex Mood, Joint JUVENAL-e) PO hydralazine 25 mg PO BID Jardiance (empagliflozin) 10 mg PO DAILY NS lactobacillus combination no.4 (Probiotic) 3,000 mmu cells PO DAILY losartan 50 mg PO BID mirtazapine 7.5 mg PO BEDTIME PRN multivitamin 1 tab PO DAILY omega-3 fatty acids (Fish Oil Concentrate) 1,200 PO daily; valacyclovir 500 mg PO BID walker Walker with seat Tobacco use date assessed: 02/24/24 Fall risk assessment: 2 + Falls in past year Last assessed Fall Risk: 02/24/24 Dental Screening Dental Screen Date: 02/24/24 Did you have a dental visit in the last 12 months?: Yes Did you have a dental problem in the last 6 months where you did not have access to dental care?: No Was dental information given to patient?: Patient has dentist HPI Follow up walk-in Abnormal Sugar count HPI Details Patient presents for the follow-up of urgent care visit. She would develop dysuria vaginal itching and was evaluated in walk in. Urinalysis was positive for glucose but no nitrites or bacteria. Patient was prescribed cefuroxime and was advised to follow-up because of elevated glucose level. Patient denies fever chills abdominal pain nausea vomiting polyuria polydipsia. She started taking Jardiance a month ago prescribed by drill rig operator for heart failure with preserved ejection fraction. A1c was 6.1. [facility] Medical History (Updated 02/24/24 @ 16:37 by Alfreda Mathew MD) Glucose found in urine on examination Edema Cough Dysuria Shoulder pain, right Venous insufficiency (chronic) (peripheral) Sciatica Depression Ear pain, left Hearing loss Radiculopathy of cervical spine GERD (gastroesophageal reflux disease) Light sensitivity Hyperlipidemia Diastolic CHF HTN (hypertension) Atrial fibrillation Surgical History H/O colonoscopy No pertinent past surgical history Family History Father No problems noted. Mother No problems noted. Sister No problems noted. Sister No problems noted. Son No problems noted. Daughter No problems noted. Social History Housing: House Alcohol intake: current Patient Tobacco Use Status: Never used Tobacco e-Cigarette/Vaping Use: Never Used service: No Current occupational status: retired Cognitive needs: No Hearing needs: No Vision needs: Yes Questionnaire Thrive Questionnaire Date Thrive assessed: 02/24/24 I am a: Patient What is your living situation today?: I have a steady place to live Within the past 12 months, did the food you bought not last and you didn't have the money to get more?: I choose not to answer this question Within the past 12 months, did you worry whether your food would run out before you got money to buy more?: I choose not to answer this question Do you have trouble paying for medicines?: I choose not to answer this question Do you have trouble getting transportation to medical appointments?: I choose not to answer this question Do you have trouble paying your heating and electricity bill?: I choose not to answer this question Do you have trouble taking care of your child, family member or friend?: I choose not to answer this question Do you have trouble with day-to-day activities such as bathing, preparing meals, shopping, managing finances, etc.?: I choose not to answer this question Are you currently unemployed and looking for a job?: I choose not to answer this question Are you interested in more education?: I choose not to answer this question Please select the resources that you would like help with: Housing/Prison Currently or been in a relationship where the following occur: I choose not to answer THRIVE Score: 0 AUDIT C Alcohol Use Questionnaire (AUDIT-C) 1. How often do you have a drink containing alcohol?: Never 3. How often do you have six or more drinks on one occasion?: Never Total Score: 0 SHAHAB-7 AMB Questionnaire SHAHAB-7 Date SHAHAB - 7 assessed: 02/24/24 Feeling nervous, anxious, or on edge: 1 = Several days Not being able to stop or control worryin = Not at all Worrying too much about different things: 0 = Not at all Trouble relaxin = Not at all Being so restless that it is hard to sit still: 0 = Not at all Becoming easily annoyed or irritable: 0 = Not at all Feeling afraid as if something awful might happen: 0 = Not at all Total SHAHAB-7 score (0-4 normal; 5-9 mild; 10-14 moderate; 15-21 severe): 1 Source: Developed by Drs. Jax Alonso, Kimberly Brady, Arie Schwarz and colleagues, with an educational adelaide from [employer]. Review of Systems Const All systems reviewed & are unremarkable except as noted in HPI and below Eyes Reports no additional complaints ENT Reports no additional complaints Card Reports no additional complaints Resp Reports no additional complaints GI Reports no additional complaints Reports no additional complaints Physical exam (Primary Care) Vital Signs: Last Vital Signs Pulse 76 02/24/24 11:10 BP 126/64 02/24/24 11:10 Pulse Ox 98 02/24/24 11:10 Oxygen Delivery Method Room Air 02/24/24 11:10 BMI result Body Mass Index 27.5 Tobacco/Smoking Status: Tobacco use Status Tobacco use date assessed 02/24/24 02/24/24 11:15 Patient Tobacco Use Status Never used Tobacco 02/24/24 11:15 e-Cigarette/Vaping Use Never Used 02/24/24 11:08 Thrive Assessment: Date of Thrive Assessment Date Thrive assessed 02/24/24 02/24/24 11:15 Currently or been in a relationship where the following occur: I choose not to answer Const General: no acute distress Chest Chest palpation & inspection: normal inspection of the chest Resp Effort & Inspection: normal respiratory effort Auscultation: clear to auscultation bilaterally Cardio Rhythm: regular rhythm Heart sounds: S1 normal heart sound present and S2 normal heart sound present GI Inspection: Yes normal to inspection Palpation (GI): Soft to palpation Percussion: Yes normal to percussion Auscultation: normal bowel sounds External Female Exam: erythema Speculum Exam - Vagina: abnormal vaginal discharge white Assessment and Plan Assessment & Plan (1) Dysuria: Code(s): R30.0 - Dysuria Plan: Patient will continue antibiotic and check UA and culture after 1 week if her symptoms persist. Diflucan 150 mg x2 tablets was prescribed for candidiasis and vaginal swab was obtained (2) Atrial fibrillation: Comment: f/u Dr. Marin , s/p multiple ablations. s/p pacemaker Code(s): I48.91 - Unspecified atrial fibrillation Plan: Follow-up with the Cardiology on [facility] (3) Diastolic CHF: Code(s): I50.30 - Unspecified diastolic (congestive) heart failure Plan: Continue current medications follow-up with Cardiology (4) Glucose found in urine on examination: Code(s): R81 - Glycosuria Plan: Glucosuria secondary to Jardiance. Patient will discuss with the drill rig operator if she needs to continue medication because of episode of candidiasis. She has no diabetes. Orders: Orders Comprehensive Met. Panel Today R30.0 - Dysuria Complete Blood Count Auto Diff Today R30.0 - Dysuria UA w Microscopic Today R30.0 - Dysuria Urine Culture Today R30.0 - Dysuria Bacterial Vaginosis Panel Today R30.0 - Dysuria, R35.0 - Frequency of micturition Medications: New Jardiance (empagliflozin) 10 mg PO DAILY 90 tabs 0RF NS hydralazine 25 mg PO TID 90 tabs 0RF fluconazole 150 mg PO Q3D 2 tabs 0RF 2 doses estradiol 0.01%(0.1mg/gram) pea size to urethra vaginally daily; 42.5 grams 2RF Coding Level of Care Code Est Pt Level 4 (34432) Diagnoses Dysuria R30.0 Atrial fibrillation I48.91 Diastolic CHF I50.30 Glucose found in urine on examination R81
[2024-02-24 11:10] VITALS: BP 126/64; PULSE 76; O2SAT 98; BMI 27.5
== END 2024-02-24 12:35 | disposition home or self-care (01) ==
PROVIDERS: PCP Internal Medicine; Visit Provider Internal Medicine
DX: R30.0 Dysuria (principal); I48.91 Unspecified atrial fibrillation; I50.30 Unspecified diastolic (congestive) heart failure; R81 Glycosuria
CPT/HCPCS: 99214

== ENCOUNTER 2024-02-24 12:33 | Outpatient (REF) | payer MEDICARE, MEDICAID, SELFPAY ==
[2024-02-24 17:35] LABS: Bacterial Vaginosis PCR NEGATIVE (Negative); Candida Group PCR NOT DETECTED (Not Detect); Candida glab krusei PCR DETECTED (Not Detect); Trichomonas vaginalis PCR NOT DETECTED (Not Detect)
== END 2024-02-24 12:34 | disposition home or self-care (01) ==
LOC: HO.LAB 12:33
PROVIDERS: Visit Provider Internal Medicine
DX: R30.0 Dysuria (principal); R35.0 Frequency of micturition
CPT/HCPCS: 0352U

== ENCOUNTER 2024-03-03 09:06 | Outpatient (REF) | payer MEDICARE, MEDICAID, SELFPAY ==
[2024-03-03 10:01] LABS: MANUAL DIFF FLAG NO
[2024-03-03 10:17] LABS: Basophils Percent Auto 0.5 % (0-2); Eosinophils Absolute Auto 0.1 X10*3/uL (0.0-0.4); Eosinophils Percent Auto 1.4 % (0-4); Hematocrit 46.1 % (37.0-47.0); Hemoglobin 15.3 g/dl (12.0-16.0); Imm Gran Abs Auto 0.02 X10*3/uL (0.00-0.03); Imm Gran Pct Auto 0.2 % (0.0-0.4); Lymphocytes Absolute Auto 1.8 X10*3/uL (1.2-4.9); Lymphocytes Percent Auto 22.6 % (20-40); Mean Corpuscular HGB Conc 33.2 g/dl (31.0-35.0); Mean Corpuscular Hemoglobin 30.9 pg (27.0-33.0); Mean Corpuscular Volume 93.1 fL (80.0-98.0); Mean Platelet Volume 9.4 fL (9.4-12.3); Monocytes Absolute Auto 0.5 X10*3/uL (0.1-1.2); Monocytes Percent Auto 6.7 % (2-11); Neutrophils Absolute Auto 5.6 x10*3/uL (2.0-8.3); Neutrophils Percent Auto 68.6 % (45-73); Platelet Count 297 X10*3/uL (160-400); Red Blood Count 4.95 X10*6/uL (4.20-5.50); Red Cell Distribution Width 15.1 % (11.0-16.0); White Blood Count 8.1 X10*3/uL (4.8-10.8)
[2024-03-03 10:19] LABS: Appearance Urine Cloudy; Color Urine Dark Yellow; Glucose Urine UA >=1000 mg/dL (Negative); Leukocyte Esterase Urine Small (1+) (Negative); Nitrite Urine Negative (Negative); Specific Gravity - Urine >= 1.030 (1.005-1.025); UMIC TRIGGER UA YES; Urine Blood Negative (Negative); Urine Ketones Negative (Negative); Urine Protein Trace mg/dL (Neg-Trace)
[2024-03-03 10:35] LABS: Bacteria Urine None Seen (None Seen); Hyaline Casts Urine 0-2 /LPF (0-2); RBC Urine 0-2 /HPF (0-2)
[2024-03-03 10:44] LABS: Alanine Aminotransferase 30 U/L (0-31); Albumin Level 3.9 g/dL (3.5-5.0); Alkaline Phosphatase 58 U/L (39-117); Anion Gap 11 (12-20); Aspartate Amino Transferase 23 U/L (5-31); Bilirubin Total 0.9 mg/dL (0.0-1.0); Blood Urea Nitrogen 18 mg/dL (9-16); Calcium 10.3 mg/dL (8.4-10.2); Carbon Dioxide 28 mmol/L (22-29); Chloride 106 mmol/L (96-108); Cholesterol 189 mg/dL (<200); Estimated Glomerular Filt Rate > 60; Glucose Fasting 92 mg/dL (60-99); Glucose Random 91 mg/dL (60-115); HDL Cholesterol 54 mg/dL (>40); Iron 143 mcg/dL (30-160); LDL Cholesterol Calculated 119 mg/dL (<100); Percent Iron Saturation 47 % (15-50); Sodium 141 mmol/L (135-145); Total Iron Binding Capacity 307 mcg/dL (228-428); Total Protein 6.9 g/dL (6.5-8.0); Triglycerides 83 mg/dL (<150); Unsaturated Iron Binding 164 ug/dL
[2024-03-03 11:07] LABS: TSH reflex Free T4 1.23 uIU/mL (0.32-4.0)
== END 2024-03-03 09:07 | disposition home or self-care (01) ==
LOC: HO.HMGCLDS 09:06
PROVIDERS: PCP Internal Medicine; Visit Provider Internal Medicine
DX: I48.91 Unspecified atrial fibrillation (principal); E78.5 Hyperlipidemia, unspecified; I10 Essential (primary) hypertension; E55.9 Vitamin D deficiency, unspecified; R30.0 Dysuria
CPT/HCPCS: 36415; 80053; 80061; 81001; 82306; 83540; 84443; 85025; 87086

== ENCOUNTER 2024-04-14 09:57 | Outpatient (REF) | payer MEDICARE, MEDICAID, SELFPAY ==
[2024-04-14 13:37] LABS: Appearance Urine Clear; Color Urine Yellow; Glucose Urine UA Negative (Negative); Leukocyte Esterase Urine Trace (Negative); Nitrite Urine Negative (Negative); PH 6.5 (5.0-9.0); UMIC TRIGGER UA YES; Urine Blood Negative (Negative); Urine Ketones Negative (Negative); Urine Protein Negative (Neg-Trace)
[2024-04-14 13:44] LABS: Bacteria Urine None Seen (None Seen); Hyaline Casts Urine 0-2 /LPF (0-2); RBC Urine 0-2 /HPF (0-2); Squamous Epithelial Cell Urine 0-2 /HPF (0-2); WBC Urine 0-5 /HPF (0-5)
== END 2024-04-14 09:58 | disposition home or self-care (01) ==
LOC: HO.HMGCLDS 09:57
PROVIDERS: PCP Internal Medicine; Visit Provider Internal Medicine
DX: R30.0 Dysuria (principal)
CPT/HCPCS: 81001; 87086

== ENCOUNTER 2024-07-05 14:45 | Outpatient (AMB) | payer MEDICARE, MEDICAID, SELFPAY ==
--- NOTE | 2024-07-05 15:22 | AM.OFFWIN_ITS ---
Intake Vital Signs 07/05/24 15:24 Height 5 ft 5 in Weight 179 lb BMI 29.8 BP 140/80 H Blood Pressure Location Rt brachial Position Sitting Pulse 89 Pulse Source Pulse Oximeter Temp 98.3 F Temp Source Oral Pulse Oximetry (%) 96 Oxygen Delivery Method Room Air Intake Visit Reasons: EP Cough for a couple of weeks Intake Note: Patient here for cough, congestion, headaches and weakness that has been present for about 2 weeks. Patient Tobacco Use Status: Never used Tobacco Allergies No Known Allergies Allergy (Verified 07/05/24 15:25) Do you need a note to return to daycare/school/sports/work: No HPI EP Cough for a couple of weeks HPI Details This note is constructed using voice recognition software. While every effort has been made to ensure accuracy, senior technical support analyst errors may have been included. The patient is a 83 year old female who presents to the clinic today with dry cough for the past 2 weeks after trip to [place]. She denies fever, chills, shortness of breath, body aches, or sick exposures. [facility] Medical History (Updated 02/24/24 @ 16:37 by Alfreda Mathew MD) Glucose found in urine on examination Edema Cough Dysuria Shoulder pain, right Venous insufficiency (chronic) (peripheral) Sciatica Depression Ear pain, left Hearing loss Radiculopathy of cervical spine GERD (gastroesophageal reflux disease) Light sensitivity Hyperlipidemia Diastolic CHF HTN (hypertension) Atrial fibrillation Surgical History H/O colonoscopy No pertinent past surgical history Family History Father No problems noted. Mother No problems noted. Sister No problems noted. Sister No problems noted. Son No problems noted. Daughter No problems noted. Social History Housing: House Alcohol intake: current Patient Tobacco Use Status: Never used Tobacco e-Cigarette/Vaping Use: Never Used service: No Current occupational status: retired Cognitive needs: No Hearing needs: No Vision needs: Yes Review of Systems Const All systems reviewed & are unremarkable except as noted in HPI and below Physical Exam Vital Signs: Last Vital Signs Temp 98.3 F 07/05/24 15:24 Pulse 89 07/05/24 15:24 BP 140/80 H 07/05/24 15:24 Pulse Ox 96 07/05/24 15:24 Oxygen Delivery Method Room Air 07/05/24 15:24 BMI result Body Mass Index 29.8 Const General: cooperative, healthy appearing, comfortable and no acute distress Orientation/consciousness: patient oriented x3 Limitations: no limitations HEENT Head: Yes normal to inspection Ears: hearing grossly normal bilaterally, external ears normal and TM abnormal retracted General nose exam: Normal external nose present, No nasal discharge present and Abnormal mucous membranes and turbinates present boggy and pale Face and sinus: Yes normal facial exam and Yes sinuses nontender Mouth: Normal oral and palatal mucosa present and moist mucous membranes Throat: Yes tonsils normal, Yes uvula midline, Yes posterior oropharynx abnormal (Erythema), Yes postnasal drainage and Yes cobblestoning Eyes General: appearance normal, both eyes and all related structures Neck Neck: Yes normal visual inspection Resp Effort & Inspection: normal respiratory effort, able to speak in complete sentences, Actively coughing, no respiratory distress, not tachypneic, no tripod positioning and no use of accessory muscles Auscultation: clear to auscultation bilaterally Cardio Rate: regular rate Rhythm: regular rhythm Heart sounds: normal S1 and S2 Skin General skin exam: no rashes or lesions noted Neuro General: patient oriented x3 Extrem General: Yes normal to inspection and Yes no clubbing, cyanosis or edema Assessment & Plan Assessment & Plan (1) Allergic rhinitis: Code(s): J30.9 - Allergic rhinitis, unspecified Qualifiers: Allergic rhinitis trigger: unspecified Allergic rhinitis seasonality: unspecified Qualified Code(s): J30.9 - Allergic rhinitis, unspecified Plan: Supportive measures encouraged and reviewed. Advised patient to try a Flonase nasal spray and second-generation antihistamine such as Zyrtec, Claritin, Anthony gra or similar. Advised consideration of sinus rinse if needed. Advised patient to follow up with primary care provider with worsening or failure to resolve. Plan See above for full details and plan. Medications: New benzonatate 100 mg PO TID 5 days PRN 15 caps 0RF Cough Coding Level of Care Code Est Pt Level 3 (60932) Diagnoses Allergic rhinitis, unspecified seasonality, unspecified trigger J30.9 Allergic rhinitis trigger: unspecified Allergic rhinitis seasonality: unspecified
[2024-07-05 15:24] VITALS: BP 140/80; PULSE 89; TEMP 36.8; O2SAT 96; BMI 29.8
--- OUTSIDE RECORDS SUMMARY | 2024-07-11 20:54 | XMS_ITS | Data Portability ---
Author Organization [facility], [facility] Address [address] [place] [address] Assessment No assessment recorded. Plan of Treatment Reminders Order Date Submit Date Provider Last Modified By Organization Details Last Modified Time Details Appointments None record ed. Lab None record ed. Referral None record ed. Procedures None record ed. Surgeries None record ed. Imaging None record ed. Medication Orders None record ed. Patient TargetsNo targets recorded. Patient InstructionsNo instructions recorded. Reason for Referral None Reported. Results Created Date Observation Date Name Description Value Unit Range Abnormal Flag Note LastModifiedBy Organization Detail LastModifiedTime 04/01/20 24 12/13/2021 imagi ng/di agnos tic resul t No observ ation record ed. [email or web address] Not Available 03/04 10:51:10 04/01/20 24 05/30/2021 imagi ng/di agnos tic resul t No observ ation record ed. [email or web address] Not Available 03/04 10:51:21 Result Notes None recorded. Problems Name Problem SNOMED Code Status Onset Date Resolution Date Notes Provider Name and Address Organization Details Recorded Time No complaints [id number] Active Status : 'A'; Not Available [facility] 4 09:24:59 Problem Notes None recorded. Procedures Surgical History Date Name Laterality Status Provider Name and Address Organization Details Recorded Time 4 Sports Shoulder completed Christopher Rogers PA-C [address], [place], [address], [place] [facility] 11/17/2023 13:19:22 Imaging Results Imaging Date Name Status LastModified by Organ [facility] Details LastModified Time 12/13/2021 imaging/diag nostic result completed Information not available 04/01/2024 10:51:10 05/30/2021 imaging/diag nostic result completed Information not available 04/01/2024 10:51:21 Procedure Notes None recorded. Medical Equipment None Reported. Allergies Allergen ID Allergen Name Allergen Category Reaction Reaction Severity Criticality Documentation Date Start Date Code Code System Note Provider Name and Address Organization Details Recorded Time 359185 ibuprofen medicatio n Not available Not available Not available 10/04/20232020 5640 RxNorm Aller gyRea ction : 'blee ding' ; NICO lebron [facility] 4 13:07:07 [id number] Non-stero idal anti-infl ammatory agent (product) medicatio n Not available Not available Not available 10/04/20232020 28571 005 SNOMED NICO lebron [facility] 4 13:07:09 Medications Name Sig Start Date Stop Date Status Note LastModified by Organization Details LastModified Time losartan 50 mg tablet TAKE 1 TABLET BY MOUTH EVERY DAY -- DOSE INCREASE active Not Available Not Available No t Available atorvastati n 40 mg tablet active Not Available Not Available Not Available doxycycline hyclate 100 mg capsule TAKE 1 TABLET BY MOUTH 2 TIMES A DAY FOR 7 DAYS 11/16 completed Not Available Not Available Not Available metoprolol succinate ER 50 mg tablet,exte nded release 24 hr TAKE 1 TABLET BY MOUTH EVERY DAY active Not Available Not Available No t Available valacyclovi r 1 gram tablet TAKE 2 TABLETS BY MOUTH EVERY 12 HOURS FOR 1 DAY 11/16 completed Not Available Not Available Not Available prednisone 20 mg tablet TAKE 1 TABLET BY MOUTH DAILY FOR 5 DAYS 11/16 completed Not Available Not Available Not Available valacyclovi r 500 mg tablet active Not Available Not Available Not Available omeprazole 40 mg capsule,del ayed release 11/16 completed Not Available Not Available Not Available spironolact one 25 mg tablet 11/16 completed Not Available Not Available Not Available amoxicillin 875 mg tablet TAKE 1 TABLE TWO TIMES A DAY 11/16 completed Not Available Not Available Not Available amlodipine 10 mg tablet TAKE 1 TABLET BY MOUTH EVERY DAY active Not Available Not Available No t Available pantoprazol e 40 mg tablet,sukumar yed release 11/16 completed Not Available Not Available Not Available esomeprazol e magnesium 40 mg capsule,del ayed release active Not Available Not Available Not Available losartan 25 mg tablet TAKE 1 TABLET BY MOUTH EVERY DAY 11/16 completed Not Available Not Available Not Available dorzolamide 22.3 mg-timolol 6.8 mg/mL eye drops INSTILL 1 DROP IN BOTH EYES TWICE A DAY DIRECTED active Not Available Not Available No t Available furosemide 20 mg tablet active Not Available Not Available Not Available gabapentin 100 mg capsule active Not Available Not Available Not Available albuterol sulfate HFA 90 mcg/actuati on aerosol inhaler INHALE 2 PUFFS EVERY 6 HOURS NEEDED FOR SHORTNESS OF BREATH OR WHEEZING 11/16 completed Not Available Not Available Not Available lisinopril 40 mg tablet 11/16 completed Not Available Not Available Not Available fluticasone propionate 50 mcg/actuati on nasal spray,suspe nsion active Not Available Not Available Not Available amoxicillin 875 mg-potassiu m clavulanate 125 mg tablet TAKE 1 TABLET BY MOUTH TWICE A DAY 11/16 completed Not Available Not Available Not Available tobramycin 0.3 %-dexametha sone 0.1 % eye drops,suspe nsion INSTILL 1 DROP INTO RIGHT EYE TWICE A DAY 11/16 completed Not Available Not Available Not Available DentaGel 1.1 % BRUISH ONCE EACH DAY BEFORE BED AND DO NOT RINSE active Not Available Not Available No t Available mirtazapine 7.5 mg tablet active Not Available Not Available Not Available diclofenac 1 % topical gel APPLY 1 TO 2 GRAMS 3 TO 4 TIMES PER DAY NEEDED FOR PAIN 11/16 completed Not Available Not Available Not Available Eliquis 5 mg tablet Take 1 tablet twice a day by oral route. active Not Available Not Available No t Available Vitals Date Recorded Body height Body mass index (BMI) Body weight Provider Name and Address Organization Details Last Updated DateTime 11/17/2023 167.64 cm 28.2 kg/m2 21214.66 g NICO DOVE [place] [facility] [place] [facility] 11/17/2023 13:06:54 Social History None recorded. Functional Status None recorded. Mental Status None recorded. Family History Nothing Reported. Medical History No medical history recorded. Gynecological HistoryNo gynecological history recorded. 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 [id number] 366249 M75.121 Health Concerns Section Related Observation LastModified by Organization Detai ls LastModified Time None Recorded Concern Status LastModified by Organization Details LastModified Time None Recorded Advance Directives Directive None Recorded Payers Encounter Date Sequence Insurance Name Policy Number Policy Bautista Covered Member ID Bautista Member ID Guarantor Name 11/17/2023 1 [place] (MEDICARE REPLACEMENT PPO) [id number] Emelia Toczek [id number] Emelia Toczek 11/17/2023 2 [place] [facility] Emelia Toczek [id number] Emelia Toczek Notes Date Note Type Note Provider Name and Address Organization Details Recorded Time 11/17/2023 text/html I am seeing the patient today under the supervision of Dr. Madden who was available but who did not see the patient.REASON FOR VISITPatient comes to the office with known rotator cuff arthropathy of the right shoulder. Previous injection 8 months ago provided excellent long-lasting benefit. She is not interested in surgical care. The patient has done well with conservative management for their shoulder pain. Recently reports increasing discomfort over the past several weeks without injury. Pain is generalized about the shoulder and discomfort is noted at night.PAST MEDICAL/SURGICAL HISTORYCurrent medications and surgeries were reviewed per intake sheet.PHYSICAL FINDINGSThe patient is well appearing, in no apparent distress, alert and oriented to person, place and time. Gait is symmetric. No significant swelling, warmth or erythema about either shoulder.Right Shoulder exam : ROM forward elevation 120??, ER 45??, IR to L5 there is mild tenderness to palpation about the shoulder, moderate pain through mid range manipulations. 4/5 strength of the shoulder. Good stability of the shoulder.Peripheral, vascular, lymphatic examination, skin, neurologic coordination, reflexes, sensation are within normal limits.ASSESSMENTChr onic right shoulder pain with rotator cuff tear.PLANThe patient has done well with conservative management in regards to the shoulder. Continued conservative management recommended. Moderating activities with the upper extremity recommended also.Ater meticulous sterile preparation a total of 40mg of Kenalog and 4 cc of 1/4% Marcaine was injected into the combined subacromial space and glenohumeral space of the right shoulder. Patient tolerated the injection well. Moderating activities with the upper extremity recommended. The patient will follow up as symptoms require going forward. Christopher Rogers PA-C [address], [place], [address], [place] [facility] [place] [facility] 11/17/2023 13:20:13 OBGyn Episode No OBEpisode recorded.
--- OUTSIDE RECORDS SUMMARY | 2024-07-11 20:54 | XMS_ITS | Continuity of Care Document ---
Author Organization [facility] Address [address] [place] [address] Care Team Providers Care Chart Reader Name Role Phone Alfreda Mathew MD Primary Care Physician Encounter [facility] R [id number] Date(s): 05/16/24 - 06/15/24 [facility] [address] [place] [address]- Attending Physician: Bobo Damian Admitting Physician: Bobo Damian Referring Physician: AdmtrBobo Encounter Type: Triage Allergies, Adverse Reactions, Alerts No Known Allergies Medications amLODIPine 5 mg oral tablet 5 mg, 1, tablet, By Mouth, Daily, Refills 0, Maintenance, 05/16/24 9:38:00 AM EDT, Partial fill upon patient request if the prescription is for a schedule II opioid drug. Start Date: 05/16/24 Status: Ordered Repeat number: 1 atorvastatin 40 mg oral tablet 1 tablet = 40 mg, By Mouth, Daily in AM, 0 Refills, Maintenance Start Date: 01/03/18 Status: Ordered Repeat number: 1 calcium (as carbonate and lactate)-vitamin D 200 mg-250 intl units oral tablet, chewable 1 tablet, Chew, Daily, # 100 tablet, 0 Refills, Maintenance, 01/03/18 1:04:12 PM EDT, Chew Tablet Start Date: 01/03/18 Status: Ordered Quantity: 100.0 Unit: tablet Repeat number: 1 Dentagel 1.1% topical gel 1 applicator, daily Start Date: 01/22/20 Status: Ordered Repeat number: 1 dorzolamide-timolol 2%-0.5% preservative-free ophthalmic solution 1 drops, Eyes, Both, 2 times a day, 0 Refills, Maintenance, 01/03/18 1:04:49 PM EDT Start Date: 01/03/18 Status: Ordered Repeat number: 1 Eliquis 5 mg oral tablet 1 tablet = 5 mg, By Mouth, 2 times a day, # 60 tablet, 5 Refills, Maintenance, 12/30/21 2:28:00 PM EDT, Tablet, Partial fill upon patient request if the prescription is for a schedule II opioid drug. Start Date: 12/30/21 Status: Ordered Quantity: 60.0 Unit: tablet Repeat number: 1 esomeprazole 40 mg oral enteric coated capsule 1 capsule = 40 mg, By Mouth, 2 times a day, # 30 capsule, 0 Refills, Maintenance, 12/06/18 5:51:19 PMEDT, EC Capsule Start Date: 12/06/18 Status: Ordered Quantity: 30.0 Unit: capsule Repeat number: 1 Fish Oil 1200 mg oral capsule 1 capsule = 1,200 mg, By Mouth, 3 times a day, 0 Refills, Maintenance, 01/03/18 1:03:26 PM EDT Start Date: 01/03/18 Status: Ordered Repeat number: 1 fluticasone 50 mcg/inh nasal spray 2 sprays, Nares, Both, 2 times a day Start Date: 01/22/20 Status: Ordered Repeat number: 1 furosemide 40 mg oral tablet 20 mg, 0.5, tablet, By Mouth, Daily, Refills 0, Maintenance, 02/10/22 2:26:00 PM EDT, Partial fill upon patient request if the prescription is for a schedule II opioid drug. Start Date: 02/10/22 Status: Ordered Repeat number: 1 gabapentin 100 mg oral capsule 100 mg, 1, capsule, By Mouth, 2 times a day, # 120 capsule, Refills 0, Maintenance, 01/03/21 6:16:00 PM EDT, Partial fill upon patient request if the prescription is for a schedule II opioid drug. Start Date: 01/03/21 Status: Ordered Quantity: 120.0 Unit: capsule Repeat number: 1 hydrALAZINE 25 mg oral tablet 25 mg, 1, tablet, By Mouth, 4 times a day, Refills 0, Maintenance, 05/16/24 9:39:00 AM EDT, Partialfill upon patient request if the prescription is for a schedule II opioid drug. Start Date: 05/16/24 Status: Ordered Repeat number: 1 Jardiance 10 mg oral tablet 1 tablet = 10 mg, By Mouth, Daily in AM, 0 Refills, Maintenance, 05/16/24 9:38:00 AM EDT, Partial fill upon patient request if the prescription is for a schedule II opioid drug. Start Date: 05/16/24 Status: Ordered Repeat number: 1 losartan 50 mg oral tablet 50 mg, 1, tablet, By Mouth, Daily, Refills 0, Maintenance, 05/16/24 9:39:00 AM EDT, Partial fill upon patient request if the prescription is for a schedule II opioid drug. Start Date: 05/16/24 Status: Ordered Repeat number: 1 mirtazapine 7.5 mg oral tablet 1 tablet = 7.5 mg, By Mouth, Daily at bedtime, # 30 tablet, 0 Refills, Maintenance, 08/25/23 10:44:00 PM EST, Partial fill upon patient request if the prescription is for a schedule II opioid drug. Start Date: 08/25/23 Status: Ordered Quantity: 30.0 Unit: tablet Repeat number: 1 Multivitamin 1 tablet, By Mouth, Daily, 0 Refills, Maintenance, 01/03/18 1:02:37 PM EDT Start Date: 01/03/18 Status: Ordered Repeat number: 1 Osteo Bi-Flex Triple Strength oral tablet 1 tablet, By Mouth, Daily, 0 Refills, Maintenance, 01/22/20 8:25:00 PM EDT Start Date: 01/22/20 Status: Ordered Repeat number: 1 Systane Ultra 1 drops, Eyes, Both, 2 times a day, 0 Refills, Maintenance, 01/03/18 1:04:24 PM EDT Start Date: 01/03/18 Status: Ordered Repeat number: 1 Vitamin C 1 tablet, By Mouth, Daily, 0 Refills, Maintenance, 01/22/20 8:21:00 PM EDT Start Date: 01/22/20 Status: Ordered Repeat number: 1 Problem List Condition Confirmation Course Effective Dates Status H ealth Status Informant Atrial fibrillation Confirmed Active H/O gastroesophageal reflux (GERD) Confirmed Active Hyperlipidemia Confirmed Active Hypertension Confirmed Active Myalgia Confirmed Active Social History Social History Type Response Smoking Status Never (less than 100 in lifetime) entered on: 01/06/24 Sex Sex Representation Female (finding) Patient Care team information Care Team Personnel Name: Alfreda Mathew MD Position: [facility] Physician - Primary Care Member Role: PCP Address: [address] [place], [place] [address] Telecom: Name: Mayela Sinclair RN Position: [facility] RN Member Role: Primary Care Nurse Name: Suzan Schilling RN Position: [facility] RN Member Role: Primary Care Nurse Care Team Related Persons Name: SABIHA PALENCIA Name: CHAD PALENCIA Insurance Providers Guarantor name: ELIZABETH PALENCIA Health Plan Information #: 1 Payer: NA Member Number: NA Policy Number: NA Group Number: NA Health Plan Information #: 2 Payer: [facility] Member Number: NA Policy Number: NA Group Number: NA
== END 2024-07-05 16:06 | disposition home or self-care (01) ==
PROVIDERS: PCP Internal Medicine; Visit Provider Registered Nurse
DX: J30.9 Allergic rhinitis, unspecified (principal)

== ENCOUNTER → 2024-07-05 14:45 | Outpatient (BNVA) | payer MEDICARE, MEDICAID, SELFPAY | PROVIDERS: PCP Internal Medicine; Visit Provider Registered Nurse | DX: J30.9 Allergic rhinitis, unspecified (principal) | CPT/HCPCS: 99212 ==

== ENCOUNTER 2024-10-12 09:07 | Outpatient (REF) | payer MEDICARE, MEDICAID, SELFPAY ==
[2024-10-12 10:07] LABS: MANUAL DIFF FLAG NO
[2024-10-12 10:10] LABS: Basophils Percent Auto 0.7 % (0-2); Eosinophils Absolute Auto 0.1 X10*3/uL (0.0-0.4); Eosinophils Percent Auto 1.5 % (0-4); Hematocrit 40.2 % (37.0-47.0); Imm Gran Abs Auto 0.01 X10*3/uL (0.00-0.03); Imm Gran Pct Auto 0.2 % (0.0-0.4); Lymphocytes Absolute Auto 1.8 X10*3/uL (1.2-4.9); Lymphocytes Percent Auto 30.1 % (20-40); Mean Corpuscular HGB Conc 32.3 g/dl (31.0-35.0); Mean Corpuscular Hemoglobin 29.3 pg (27.0-33.0); Mean Corpuscular Volume 90.5 fL (80.0-98.0); Mean Platelet Volume 9.2 fL (9.4-12.3); Monocytes Absolute Auto 0.5 X10*3/uL (0.1-1.2); Monocytes Percent Auto 7.7 % (2-11); Neutrophils Absolute Auto 3.5 x10*3/uL (2.0-8.3); Neutrophils Percent Auto 59.8 % (45-73); Platelet Count 326 X10*3/uL (160-400); Red Blood Count 4.44 X10*6/uL (4.20-5.50); Red Cell Distribution Width 15.9 % (11.0-16.0); White Blood Count 5.8 X10*3/uL (4.8-10.8)
--- OUTSIDE RECORDS SUMMARY | 2024-10-12 10:29 | XMS_ITS | Encounter Summary ---
Author Organization [facility] Address [address] [place] [address] Phone Care Team Providers Care It Consulting Director Name Role Phone Alfreda Mathew MD Primary Care Provider Encounter Details Date Type Department Care Team (Late st Contact Info) Description 09/28/2024 Office Communication [facility] [address] [place] [phone] [address] [place] [phone] Social History Tobacco Use Types Packs/Day Years Used Date Smoking Tobacco: Never Smokeless Tobacco: Never Alcohol Use Standard Drinks/Week Comments Never 0 (1 standard drink = 0.6 oz pur e alcohol) Comments Unknown Sex and Gender Information Value Date Recorded Sex Assigned at Not on file Legal Sex Female 1:12 PM EDT Gender Identity Not on file Sexual Orientation Not on file documented as of this encounter Miscellaneous Notes * Telephone Encounter - Moose Sharif MD - 09/28/2024 3:38 PM EST Called daughter documented in this encounter Plan of Treatment Upcoming Encounters Date Type Department Care Team (Late st Contact Info) Description 11/20/2024 4:00 PM EDT Office Visit [facility] [address] [phone] Moose Sharif MD [address] [phone] documented as of this encounter Visit Diagnoses Not on filedocumented in this encounter Care Teams It Consulting Director Relationship Specialty Start Date End Date Alfreda Mathew MD [place] [address] PCP - General Internal Medicine 11/19/23 documented as of this encounter
--- OUTSIDE RECORDS SUMMARY | 2024-10-12 10:29 | XMS_ITS | Clinical Summary ---
Author Organization [facility] Address [address] [place] [address] Phone Care Team Providers [employer] Internet Sales Manager Name Role Phone Alfreda Mathew MD Primary Care Provider [phone] Allergies No known active allergies Medications amLODIPine (NORVASC) 5 mg tablet Take 1 tablet (5 mg total) by mouth 1 (one) time each day. Active apixaban (ELIQUIS) 5 mg tablet Take 5 mg by mouth 2 times daily. 12/29/19 24 Active mirtazapine (REMERON) 7.5 mg tablet Take 1 tablet (7.5 mg total) by mouth at bedtime as needed. Active gabapentin (NEURONTIN) 100 mg capsule Take 1 capsule (100 mg total) by mouth 2 (two) times a day. Active calcium carbonate (CALCIUM 600 ORAL) Take by mouth 1 (one) time each day. Active cranberry fruit extract (CRANBERRY EXTRACT ORAL) Take by mouth 1 (one) time each day. Active omega 4-lcb-vbe-fish oil (Fish OiL) 1,200 (144-216) mg capsule Take by mouth 1 (one) time each day. Active GARLIC ORAL Take by mouth 1 (one) time each day. Vcaotp-WYN-NQP (GARLIC/EPA OR) Active glucos sul 2KCl/msm/chond/ C/Mn (GLUCOSAMINE CHONDROITIN ORAL) Take by mouth 1 (one) time each day. Misc Natural Products (GNP Glucosamine Chondroitin) Tab Active dorzolamide-june oloL (COSOPT) 22.3-6.8 mg/mL ophthalmic solution 1 Drop 2 times daily. Active atorvastatin (LIPITOR) 40 mg tablet 1 Tablet daily. 11/08/19 15 Active fluoride, sodium, (DentaGeL) 1.1 % gel USE DIRECTED ONCE DAILY 01/19/20 17 Active fluticasone propionate (FLONASE) 50 mcg/actuation nasal spray Administer 2 sprays into each nostril 1 (one) time each day. 02/18/20 16 Active multivitamin (MULTIPLE VITAMINS ORAL) Take 1 tablet by mouth 1 (one) time each day. 09/08/19 11 Active Lactobacillus acidophilus (PROBIOTIC ORAL) USE DIRECTED. 09/16/19 17 Active furosemide (LASIX) 20 mg tablet Take 1 tablet (20 mg total) by mouth 1 (one) time each day. 90 tablet 1 09/22/19 25 Active esomeprazole (NexIUM) [address] capsuleIndicati ons:Gastroesoph ageal reflux disease, unspecified whether esophagitis present Take 1 capsule (40 mg total) by mouth 2 (two) times a day. 180 each 3 09/28/19 25 2025 Active olmesartan (BENICAR) 40 mg tablet Take 1 tablet (40 mg total) by mouth 1 (one) time each day. Active spironolactone (ALDACTONE) 25 mg tablet Take by mouth. Activ e hydrALAZINE (APRESOLINE) 25 mg tabletIndicatio ns:Essential hypertension Take 1 tablet (25 mg total) by mouth 2 (two) times a day. 10/04/19 25 Active empagliflozin (Jardiance) 10 mg tablet Take 10 mg by mouth daily. 02/25/20 24 2024 Discontinued(S anatoliy effects) losartan (COZAAR) 50 mg tablet Take 1 tablet (50 mg total) by mouth 2 (two) times a day. 2024 Discontinued(D iscontinued by another clinician) hydrALAZINE (APRESOLINE) 25 mg tablet Take 1 tablet (25 mg total) by mouth as needed. 2024 Discontinued(R eorder) furosemide (LASIX) 20 mg tablet Take 1 Tablet by mouth daily. Dose decreased JM 02/18/22 07/30/20 23 2024 Discontinued esomeprazole (NexIUM) [address] capsuleIndicati ons:Gastroesoph ageal reflux disease, unspecified whether esophagitis present TAKE 1 CAPSULE 2 TIMES DAILY DIRECTED 180 capsule 2 09/11/192024 Discontinued Active Problems Problem Noted Date Diagnosed Date Status post biventricular pacemaker 10/02/2024 Assessment & Plan (10/04/2024 7:00 AM EST): Orders: Transthoracic echocardiogram (TTE) complete with PRN contrast, bubble, strain, and 3D order panel; Future Cardiac holter monitor (<= 48 hours); Future Secondary hypercoagulable state 10/02/2024 Assessment & Plan (10/04/2024 7:00 AM EST): Atrioventricular block, complete 06/28/2023 Assessment & Plan (10/04/2024 7:00 AM EST): Atrial fibrillation with rapid ventricular respo nse 09/17/2022 Chronic diastolic heart failure 09/26/2020 Overview (07/17/2024): Last Assessment & Plan: Appears euvolemic, tolerating her medications well at this time. Reviewed signs and symptoms of heart failure and educated regarding monitoring weight, diet, and fluid intake. If there is a weight gain of 3 pounds in one day or 5 pounds in a week please call our office or seek medical attention if necessary. Assessment & Plan (10/04/2024 7:00 AM EST): She presents today continuing to report ongoing dyspnea on exertion as well as orthopnea which have been ongoing for many years. The patient was previously unable to tolerate Jardiance due to genitourinary side effects; this has subsequently been stopped. Dr. Sharif recently started her on spironolactone which appears to have aided with decreasing her peripheral edema significantly; given that this was just started approximately 5 days ago, we will not make any further changes to her medication regimen and continue furosemide as well as spironolactone and olmesartan. We will update an echocardiogram approximately 1 year from her last. We discussed risk reduction through lifestyle modifications including healthy diet, routine exercise, and weight management. We reviewed heart failure management including low-sodium diet, symptom surveillance, daily weights, and medication compliance. I've asked the patient to call if they develop worsening symptoms of heart failure such as increased shortness of breath, new or worsening cough, increased swelling in the legs or ankles, or weight gain of more than 2 pounds in one day or 4 pounds in one week. Orders: ECG 12 lead Transthoracic echocardiogram (TTE) complete with PRN contrast, bubble, strain, and 3D order panel; Future HARLEY (dyspnea on exertion) 09/26/2020 Overview (07/17/2024): Last Assessment & Plan: Ongoing shortness of breath, Last Echo no significant findings, will update this Assessment & Plan (10/04/2024 7:00 AM EST): As above; we must consider that her shortness of breath may be an anginal equivalent given her cardiac risk factors of increased age, hyperlipidemia, and hypertension. She is willing to complete a nuclear stress test for further evaluation; this will have to be pharmacologic in nature as she does not feel that she will be able to walk on a treadmill adequately or safely due to her symptoms. Orders: Nuclear stress test with myocardial perfusion; Future Transthoracic echocardiogram (TTE) complete with PRN contrast, bubble, strain, and 3D order panel; Future Cardiac holter monitor (<= 48 hours); Future Sliding hiatal hernia 11/23/2018 Major depression, recurrent 07/21/2018 GERD (gastroesophageal reflux disease) 8 Schatzki's ring 02/22/2018 Herpes labialis 07/30/2017 Aortic atherosclerosis 06/09/2017 Overview (07/17/2024): Comments: CT 05/19/12 Athersclerotic calcification of aortic arch Chronic headaches 06/09/2017 Osteopenia 06/09/2017 Paroxysmal atrial fibrillation 03/15/2017 Overview (07/17/2024): Last Assessment & Plan: In sinus rhythm today. EKG unchanged. Heart rate controlled in the 60s with stable first-degree AV block from previous. Stable left bundle branch block. She does appear to be having episodes of recurrent symptomatic paroxysmal atrial fibrillation. She recently continued her amiodarone titration load and is now on 200 mg of amiodarone daily. Cannot add additional AV jaleesa tre given potential for symptomatic sinus bradycardia. There has been discussion of possible pacemaker. Accordingly, I will refer to EP for outpatient consultation. In the meantime, I will obtain a 24- hour Holter as her symptoms are occurring on a daily basis to have further correlate with her symptoms and assess heart rates and rhythm. We did discuss that amiodarone is a long-acting antiarrhythmic and that fully, with more time these episodes of paroxysmal atrial fibrillation will decrease. But, again, I will defer to EP at this time. She will continue on anticoagulation with Eliquis and understands the risk and benefits of anticoagulation and wishes to continue. I will order surveillance TSH, liver enzymes and baseline PFTs for monitoring on amiodarone therapy. Her blood pressures have been creeping up. Wondering if this could be contributing to her atrial fibrillation. We will add back 20 mg of lisinopril and continue to assess. Assessment & Plan (10/04/2024 7:00 AM EST): Now status post AV node ablation and insertion of dual-chamber left bundle Biotronik pacemaker in 10/2022 and a redo ablation in 08/2023 for atrial fibrillation with RVR. For palpitations, we are updating a Holter as outlined above and will readdress this as indicated. She is anticoagulated on apixaban 5 marcelo BID; we discussed the risks and benefits of continuing this and she wishes to continue with the current plan. She is aware to seek urgent medical attention for any uncontrolled bleeding, signs or symptoms of GI or other internal bleeding, or for any head injury. This is the appropriate dose for her age of greater than 80 years, weight of greater than 60 kg, and creatinine of less than 1.5. Orders: Transthoracic echocardiogram (TTE) complete with PRN contrast, bubble, strain, and 3D order panel; Future Cardiac holter monitor (<= 48 hours); Future Essential hypertension 02/03/2017 Overview (07/17/2024): Last Assessment & Plan: Systolic blood pressures have been elevated as above. We will restart 20 mg lisinopril daily and she will continue to monitor her blood pressures at home and let us know. We can adjust lisinopril dose up or down based on blood pressure readings. She was previously on 40 mg of lisinopril. She will need a BMP in 7 to 10 days which I have ordered. Her last serum creatinine on 07/21/2022 had normalized to 1.1. We will continue to monitor with the addition of lisinopril. Assessment & Plan (10/04/2024 7:00 AM EST): Initial blood pressure was elevated with improvement upon recheck; she is following with nephrology for blood pressure management which appears to be improved after the addition of spironolactone. We will not make any further changes today as it has just been 5 days since the addition of this medication; continue olmesartan, amlodipine, spironolactone, and furosemide. She will continue to follow with nephrology as directed. Orders: hydrALAZINE (APRESOLINE) 25 mg tablet; Take 1 tablet (25 mg total) by mouth 2 (two) times a day. Nuclear stress test with myocardial perfusion; Future Transthoracic echocardiogram (TTE) complete with PRN contrast, bubble, strain, and 3D order panel; Future Mixed hyperlipidemia 01/18/2017 Overview (07/17/2024): Last Assessment & Plan: Last lipid panel 01/19 total cholesterol 158, HDL 50, LDL 94. Continue statin. Assessment & Plan (10/04/2024 7:00 AM EST): Most recent lipid panel completed 08/04/2023 showed a total cholesterol of 133, LDL of 78, HDL of 43, and triglycerides of 94. We will update this today and readdress as indicated; in the interim, continue atorvastatin 40 mg daily. Orders: Nuclear stress test with myocardial perfusion; Future Lipid panel; Future Encounters Date Type Department Care Team Description 10/03/2024 1:10 PM EST Office Visit [facility] [address] [place] [address] Melva Carey NP Palpitations (Primary Dx); Paroxysmal atrial fibrillation (CMS/HCC); Secondary hypercoagulable state (CMS/HCC); Atrioventricular block, complete (CMS/HCC); Status post biventricular pacemaker; Chronic diastolic heart failure (CMS/HCC); HARLEY (dyspnea on exertion); Essential hypertension; Mixed hyperlipidemia 09/26/2024 Telephone Gastroenterology - [address] [place] [phone] Hermes Ojeda MD 09/05/2024 5:20 PM EST Ancillary Procedure [facility] [address] [place] [phone] 08/22/2024 Telephone Gastroenterology - [address] [place] [phone] Hermes Ojeda MD from Last 3 Months Immunizations Name Administration Dates Next Due Pneumococcal conjugate 13 va lent (Prevnar 13, PCV13) 2mo and older 07/08/2015 Pneumococcal polysaccharide 23 valent (Pneumovax 23) 2yo and older 06/01/2012 Tdap Tetanus diptheria acell ular pertussis (Boostrix; Adacel) 7yo and older 03/14/2010 Surgical History Surgery Date Site/Laterality Comments SHOULDER SURGERY PROCEDURE: HISTORICAL SHOULDER SURGERY CATARACT EXTRACTION Bilateral PROCEDURE: HISTORICAL CATARACT REMOVAL HAND SURGERY PROCEDURE: HISTORICAL HAND SURGERY; COMMENT: trigger thumb release HYSTERECTOMY PROCEDURE: HISTORICAL HYSTERECTOMY OTHER SURGICAL HISTORY 12/22/2021 PROCEDURE: LISSETH VINES CARDIAC ELECTROPHYSIOL STDY W/RF ABLATION OTHER SURGICAL HISTORY PROCEDURE: HISTORY OTHER; COMMENT: Cardioversion Medical History Medical History Date Comments Aortic atherosclerosis (CMS/[facility]) 06/09/2017 DX:Aortic atherosclerosis ([facility]); COMMENT: Comments: CT 05/19/12 Athersclerotic calcification of aortic arch Chronic headaches 06/09/2017 DX:Chronic hea daches Congestive heart failure (CMS/HCC) 06/09/2017 DX:Congestive heart failure (HCC) GERD (gastroesophageal reflu x disease) 02/22/2018 DX:GERD (gastroesophageal re flux disease) Herpes labialis 07/30/2017 DX:Herpes labial is Hyperlipidemia 01/18/2017 DX:Hyperlipidemi a Hypertension 02/03/2017 DX:Hypertension Major depression, recurrent (CMS/HCC) 07/21/2018 DX:Major depression, recurrent (HCC) Osteopenia 06/09/2017 DX:Osteopenia Paroxysmal atrial fibrillati on (CMS/HCC) 03/15/2017 DX:Paroxysmal atrial fibrill ation (HCC) Schangoziki's ring 02/22/2018 DX:Schatzki's ri ng Sliding hiatal hernia 11/23/2018 DX:Sliding hiatal hernia Atrial fibrillation (CMS/HCC) DX :Atrial fibrillation (HCC) NIKAI (acute kidney injury) (CMS/HCC) DX:NIKIA (acute kidney injury) (HCC) Family History Medical History Relation Name Comments Heart failure Mother Hypertension Mother Other: Hyperlipidemia Mother Relation Name Status Comments Mother Social History Tobacco Use Types Packs/Day Years Used Date Smoking Tobacco: Never Smokeless Tobacco: Never Alcohol Use Standard Drinks/Week Comments No 0 (1 standard drink = 0.6 oz pur e alcohol) Comments No Sex and Gender Information Value Date Recorded Sex Assigned at Female 09/28/2024 12:52 PM EST Legal Sex Female 8:21 AM EST Gender Identity Female 09/28/2024 12:52 PM EST Sexual Orientation Straight 09/28/2024 12 :52 PM EST Obstetrics History Para Term AB IAB SAB Ectopic Multiple Livin g Live Births 2 Last Filed Vital Signs Vital Sign Reading Time Taken Comments Blood Pressure 132/70 10/03/2024 2:01 PM EST Pulse 80 10/03/2024 1:15 PM EST Temperature - - Respiratory Rate - - Oxygen Saturation 98% 10/03/2024 1:15 PM EST Inhaled Oxygen Concentration - - Weight 77.6 kg (171 lb) 10/03/2024 1:15 PM EST Height 167.6 cm (5' 6 ) 10/03/2024 1:15 PM EST Body Mass Index 27.6 10/03/2024 1:15 PM EST Plan of Treatment Upcoming Encounters Date Type Department Care Team (Late st Contact Info) Description 10/30/2024 9:00 AM EDT Ancillary Procedure [facility] [address] [address] 11/06/2024 1:30 PM EDT Ancillary Procedure [facility] [address] [address] 11/27/2024 8:[address] [facility] [address] [place] [phone] 12/12/2024 2:30 PM EDT Ancillary Procedure [facility] [address] [place] [phone] 12/20/2024 1:30 PM EDT Ancillary Procedure [facility] [address] [place] [phone] Health Maintenance Due Date Last Done Comments RSV Immunization Patients 60+ Years Old (1 - 1-dose 75+ series) 2014 DTaP,Tdap,and Td Vaccines (2 - Td or Tdap) 03/14/2020 03/14/2010 Cholesterol Screening (Lipid Panel) 07/05/2022 Depression Screening 07/05/2022 Falls Risk Assessment 07/05/2022 Medicare Annual Wellness Visit 07/05/2022 Osteoporosis Screening (Bone Density Screening) 07/05/2022 Social Influencers of Health Screening 07/05/2022 COVID-19 Vaccine ( season) 2024 06/10/2022, 04/30/2021, 09/22/2020, Additional history exists Hypertension/CHF/CAD Annual BMP Blood Test 09/27/2024 09/27/2023 Pneumococcal Vaccine: 50+ Years Completed 02/17/2021, 07/08/2015, 07/08/2015, Additional history exists Zoster Vaccines Completed 07/07/2021, 02/17/2021 Influenza Vaccine Completed 05/30/2024, , 05/29/2022, Additional history exists HIB Vaccines Aged Out No longer eligi ble based on patient's age to complete this topic HPV Vaccines Aged Out No longer eligi ble based on patient's age to complete this topic Hepatitis A Vaccines Aged Out No long er eligible based on patient's age to complete this topic Hepatitis B Vaccines Aged Out No long er eligible based on patient's age to complete this topic IPV Vaccines Aged Out No longer eligi ble based on patient's age to complete this topic MMR Vaccines Aged Out No longer eligi ble based on patient's age to complete this topic Meningococcal ACWY Vaccine Aged Out N o longer eligible based on patient's age to complete this topic Meningococcal B Vacine Aged Out No lo nger eligible based on patient's age to complete this topic RSV Immunization Patients Under 20 months Aged Out No longer eligible based on patient's age to complete this topic Varicella Vaccines Aged Out No longer eligible based on patient's age to complete this topic Medical Devices Implanted Type Area Learning Specialist Device Identifier Shelf Expiration Date Model / Serial / Lot Bhavana Edora 8 SkinnyT [id number] Implanted:10/31 (Quantity not on file) Cardiac Pacemaker [employer] EDORA 8 SHAYAN / [id number] / Procedures Procedure Name Priority Date/Time Associated Diagnosis Comments ECG 12-LEAD Routine 10/04/2024 7:01 AM EST Chronic diastolic heart failure (CMS/HCC) CARDIAC DEVICE CHECK- REMOTE- MURJ Routine 09/05/2024 5:19 PM EST ANNUAL BMP BLOOD TEST Routine 09/27/2023 from Last 3 Months or Most Recently Relevant to Health Maintenance Results * ECG 12 lead (10/04/2024 7:01 AM EST) Ventricular Rate ECG 80 BPM GEMUSE Atrial Rate 90 BPM GEMUSE QRS Duration 160 ms GEMUSE Q-T Interval 446 ms GEMUSE QTc 514 ms GEMUSE R [place] -34 degrees GEMUSE T [place] 98 degrees GEMUSE ECG Interpretation Ventricular-pa cristy rhythm When compared with ECG of 19-JUL-2013 07:07, Electronic ventricular pacemaker has replaced Sinus rhythm Confirmed by DAYTON NG ([id number]) on 10/04/2024 7:50:41 AM GEMUSE 10/03/2024 1:23 PM EST 10/04/2024 7:50 AM EST Melva Carey NP ECG ORDERABLES Edite d Result - Final GEMUSE * Cardiac device check - Remote- MURJ (09/05/2024 5:19 PM EST) Date Time Interrogation Session [id number] CV DEVICE CHECK Type Interrogation Session RemoteScheduled CV DEVICE CHECK Implantable Pulse Generator Learning Specialist BIO CV DEVICE CHECK Implantable Pulse Generator Type IPG CV DEVICE CHECK Implantable Pulse Generator Model Edora 8 DR-T CV DEVICE CHECK Implantable Pulse Generator Serial Number [id number] CV DEVICE CHECK Implantable Pulse Generator Implant Date 20221116 CV DEVICE CHECK Battery Remaining Percentage 80.00 CV DEVICE CHECK Battery Status Middle of Service CV DEVICE CHECK Satish Statistic RV Percent Paced 100.00 CV DEVICE CHECK Lead Channel RA Pacing Threshold Date 2024-08-28 CV DEVICE CHECK Lead Channel Sensing Intrinsic Amplitude 16.500 CV DEVICE CHECK Lead Channel Impedance Value 351 CV DEVICE CHECK Lead Channel RV Pacing Threshold Date 2024-08-28 CV DEVICE CHECK Lead Channel Setting Pacing Amplitude 3.000 CV DEVICE CHECK Lead Channel Setting Pacing Pulse Width 0.4 CV DEVICE CHECK Satish Setting Mode (NBG Code) VVI-CLS CV DEVICE CHECK Satish Setting Lower Rate Limit 70 CV DEVICE CHECK Satish Setting Maximum Sensor Rate 110 CV DEVICE CHECK Date of Service 2024-09-12 CV DEVICE CHECK Anatomical Region Laterality Modality Device Interroga tion 08/27/2024 11:1 9 PM EST Impressions 09/05/2024 12:59 PM EST Normal Remote: No Events * Normal Device Function * Alerts or events: None * Battery: Battery is at 80%, * Sensing, impedance and thresholds reviewed * Programmed parameters reviewed * Presenting rhythm: CHIEF DEPUTY 80's * Heart Rate Histograms reviewed * No significant changes noted Heart Failure Diagnostic: Stable * Heart failure diagnostics assessed through the device * Status: Stable- low/normal * No overt HF present Narrative Procedure Note Paul Ng MD - 09/05/2024 IMPRESSION: Normal Remote: No Events * Normal Device Function * Alerts or events: None * Battery: Battery is at 80%, * Sensing, impedance and thresholds reviewed * Programmed parameters reviewed * Presenting rhythm: CHIEF DEPUTY 80's * Heart Rate Histograms reviewed * No significant changes noted Heart Failure Diagnostic: Stable * Heart failure diagnostics assessed through the device * Status: Stable- low/normal * No overt HF present Paul Ng MD CV IMPLANTABLE CARDIAC DEV ICE PROCEDURES Final Result * Annual BMP Blood Test (09/27/2023) [facility] Annual BMP Blood Test abstracted us Historical Provider HEALTH MAINTENANCE Final Result from Last 3 Months or Most Recently Relevant to Health Maintenance Insurance [place] Advance Directives Documents on File Type Date Recorded Patient Machine I Engraver Expl anation Health Care Decision (hx) 08/27/2014 AD OROSCO DIRECTIVE Health Care Decision (hx) 08/27/2014 AD OROSCO DIRECTIVE Health Care Decision (hx) 08/27/2014 AD OROSCO DIRECTIVE Health Care Decision (hx) 08/27/2014 AD OROSCO DIRECTIVE Health Care Decision (hx) 08/27/2014 AD OROSCO DIRECTIVE Health Care Decision (hx) 08/27/2014 AD OROSCO DIRECTIVE Health Care Decision (hx) 08/27/2014 AD OROSCO DIRECTIVE Health Care Decision (hx) 08/27/2014 AD OROSCO DIRECTIVE Health Care Decision (hx) 08/27/2014 AD OROSCO DIRECTIVE Health Care Decision (hx) 08/27/2014 AD OROSCO DIRECTIVE Health Care Decision (hx) 08/27/2014 AD OROSCO DIRECTIVE Health Care Decision (hx) 08/27/2014 AD OROSCO DIRECTIVE Health Care Decision (hx) 08/27/2014 AD OROSCO DIRECTIVE Health Care Decision (hx) 08/27/2014 AD OROSCO DIRECTIVE Health Care Decision (hx) 08/27/2014 AD OROSCO DIRECTIVE Health Care Decision (hx) 08/27/2014 AD OROSCO DIRECTIVE Health Care Decision (hx) 08/27/2014 AD OROSCO DIRECTIVE Health Care Decision (hx) 08/27/2014 AD OROSCO DIRECTIVE Health Care Decision (hx) 12/24/2012 AD OROSCO DIRECTIVE Health Care Decision (hx) 12/24/2012 AD OROSCO DIRECTIVE Health Care Decision (hx) 12/24/2012 AD OROSCO DIRECTIVE Health Care Decision (hx) 12/24/2012 AD OROSCO DIRECTIVE Health Care Decision (hx) 12/24/2012 AD OROSCO DIRECTIVE Health Care Decision (hx) 12/24/2012 AD OROSCO DIRECTIVE Health Care Decision (hx) 12/24/2012 AD OROSCO DIRECTIVE Health Care Decision (hx) 12/24/2012 AD OROSCO DIRECTIVE Health Care Decision (hx) 12/24/2012 AD OROSCO DIRECTIVE Health Care Decision (hx) 12/24/2012 AD OROSCO DIRECTIVE Health Care Decision (hx) 12/24/2012 AD OROSCO DIRECTIVE Health Care Decision (hx) 12/24/2012 AD OROSCO DIRECTIVE Health Care Decision (hx) 12/24/2012 AD OROSCO DIRECTIVE Health Care Decision (hx) 12/24/2012 AD OROSCO DIRECTIVE Health Care Decision (hx) 12/24/2012 AD OROSCO DIRECTIVE Health Care Decision (hx) 12/24/2012 AD OROSCO DIRECTIVE Health Care Decision (hx) 12/24/2012 AD OROSCO DIRECTIVE Health Care Decision (hx) 12/24/2012 AD OROSCO DIRECTIVE Care Teams Automotive Internet Sales Manager Relationship Specialty Start Date End Date Alfreda Mathew MD [address] [place] [address] PCP - General Internal Medicine 09/06/24
--- OUTSIDE RECORDS SUMMARY | 2024-10-12 10:29 | XMS_ITS | Encounter Summary ---
Author Organization [facility] Address [address] [place] [address] Care Team Providers Care Pst Specialist Name Role Phone Alfreda Mathew MD Primary Care Provider [phone] Encounter Details Date Type Department Care Team ([facility] st Contact Info) Description 09/26/2024 Telephone Gastroenterology - [address] [phone] Hermes Ojeda MD 299 [facility] [address] [place] [address] Social History Tobacco Use Types Packs/Day Years [...] Orientation Straight 09/28/2024 12 :52 PM EST documented as of this encounter Progress Notes * Farideh Chacon [place] - 09/26/2024 10:43 AM EST Referrals are not done for medications. [employer] does not cover PPI's, as they are available OTC. * Micheline Hyman - 09/26/2024 10:39 AM EST Received call from Aly at [facility], looking for a referral for pt's omeprazole, please advise documented in this encounter Plan of Treatment Upcoming Encounters Date Type Department Care Team (Late st Contact Info) Description 10/30/2024 9:00 AM EDT Ancillary Procedure [facility] [address] [place] [address] 11/06/2024 1:30 PM EDT Ancillary Procedure [facility] [address] [place] [address] 11/27/2024 8:45 AM EDT Appointment [facility] Xray [address] [place] [address] 12/12/2024 2:30 PM EDT Ancillary Procedure [facility] [address] [facility] [address] [place] [address] 12/20/2024 1:30 PM EDT Ancillary Procedure [facility] [address] [place] [address] documented as of this encounter Visit Diagnoses Not on filedocumented in this encounter Care Teams Pst Specialist Relationship Specialty Start Date End Date Alfreda Mathew MD [address] [place] [address] PCP - General Internal Medicine 09/06/24 documented as of this encounter
--- OUTSIDE RECORDS SUMMARY | 2024-10-12 10:29 | XMS_ITS | Encounter Summary ---
Author Organization [facility] Address [address] [place] [address] Care Team Providers Care Commercial Appraiser Name Role Phone Alfreda Mtahew MD Primary Care Provider [phone] Encounter Details Date Type Department Care Team (Late Contact Info) Description 08/22/2024 Telephone Gastroenterology - [address] [facility] [place] [phone] Hermes Ojeda MD [address] [facility] [place] [address] Social History Tobacco Use Types Packs/Day Years [...] as of this encounter Progress Notes * Deja Bhagat - 08/22/2024 4:32 PM EST PT CALLED TO GET A REFILL ON ESOMEPRAZOLE 40MG 2XDAILY 90 DAY SUPPLY. documented in this encounter Plan of Treatment Upcoming Encounters Date Type Department Care Team (Late Contact Info) Description 10/30/2024 9:00 AM EDT Ancillary Procedure [facility] - [address] [place] [address] 11/06/2024 1:30 PM EDT Ancillary Procedure [facility] - [address] [place] [address] 11/27/2024 8:45 AM EDT Appointment [facility] Xray [address] [place] [address] 12/12/2024 2:30 PM EDT Ancillary Procedure [facility] [address] [place] [address] 12/20/2024 1:30 PM EDT Ancillary Procedure [facility] - [address] [place] [address] documented as of this encounter Visit Diagnoses Not on filedocumented in this encounter Care Teams Commercial Appraiser Relationship Specialty Start Date End Date Alfreda Mathew MD [address] [place] [address] PCP - General Internal Medicine 09/06/24 documented as of this encounter
--- OUTSIDE RECORDS SUMMARY | 2024-10-12 10:29 | XMS_ITS | Encounter Summary ---
Author Organization [facility] Address [address] [place] [address] Care Team Providers Care Associate Professor Of Literacy Name Role Phone Alfreda Mathew MD Primary Care Provider [phone] Reason for Referral * Cardiac Stress Testing (Routine) - Pending Review Specialty Diagnoses / Procedures Referred By Joyaac t Referred To Contact Cardiology Diagnoses Paroxysmal atrial fibrillation (CMS/HCC) Status post biventricular pacemaker HARLEY (dyspnea on exertion) Palpitations Procedures Cardiac holter monitor (<= 48 hours) ID ECG EXTERNAL UP TO 48 HOURS RECORDING ID ECG EXTERNAL < 48 HOURS CONTINUOUS RECORDING/STORAGE R&I BY A PHYS/QHP ID EXTERNAL ECG UP TO 48 HRS INCL RECORDING SCANNING ANLYS W REPORT Melva Carey NP [address] [address] Phone: tel: fax: [facility] Referral ID Status Reason Start Date Expiration Date V isits Requested Visits Authorized [id number] Pending Review 10/03/2024 10/03/2025 1 1 * Imaging (Routine) - Pending Review Specialty Diagnoses / Procedures Referred By Cyndi lemus Referred To Contact Cardiology Diagnoses Paroxysmal atrial fibrillation (CMS/HCC) Status post biventricular pacemaker Chronic diastolic heart failure (CMS/HCC) Essential hypertension HARLEY (dyspnea on exertion) Procedures Transthoracic echocardiogram (TTE) complete with PRN contrast, bubble, strain, and 3D order panel ID TTE W 2D IMAGE COMPLETE W DOPPLER ECHO & COLOR FLOW DOPPLER ECHO ID ARIC 2D COMPLETE W/CONTRAST OR W & WO CONTRAST WITH DOPPLER Peloquin, Melva Nelda, MACHINE PLUG SHAPER [address] [place] [address] Phone: tel: fax: [facility] Referral ID Status Reason Start Date Expiration Date V isits Requested Visits Authorized [id number] Pending Review 10/03/2024 10/03/2025 1 1 * Cardiac Stress Testing (Routine) - Pending Review Specialty Diagnoses / Procedures Referred By Contac t Referred To Contact Cardiology Diagnoses Essential hypertension Mixed hyperlipidemia HARLEY (dyspnea on exertion) Procedures Nuclear stress test with myocardial perfusion ID MYOCARDIAL PERFUSION IMAGING TOMOGRAPHIC MULTI STUDIES AT REST OR STRESS ID MYOCARDIAL PERFUSION IMAGING TOMOGRAPHIC SINGLE STUDY AT REST OR STRESS ID CARDIOVASCULAR STRESS TEST GLOBAL ID CV TMST/BIKE MAX/SUBMAX CONTINUOUS ECG MON/PHARM STRESS SUPVSR ONLY ID CV STRESS TEST/BIKE CONT ECG MON/PHARM STRESS INTERP & REPORT ONLY ID TEST STRESS CARDIOVASCULAR TRACING ONLY Melva Carey NP [address] [place] [address] Phone: tel: fax: [facility] Referral ID Status Reason Start Date Expiration Date V isits Requested Visits Authorized [id number] Pending Review 10/03/2024 10/03/2025 3 3 Reason for Visit * Reason Comments Follow-up Encounter Details Date Type Department Care Team (Late st Contact Info) Description 10/03/2024 1:10 PM EST Office Visit [facility] - [address] [place] [address] Melva Carey NP [address] [place] [address] Palpitations (Primary Dx); Paroxysmal atrial fibrillation (CMS/HCC); Secondary hypercoagulable state (CMS/HCC); Atrioventricular block, complete (CMS/HCC); Status post biventricular pacemaker; Chronic diastolic heart failure (CMS/HCC); HARLEY (dyspnea on exertion); Essential hypertension; Mixed hyperlipidemia Social History Tobacco Use Types Packs/Day Years [...] PM EST documented as of this encounter Last Filed Vital Signs Vital Sign Reading [...] Mass Index 27.6 10/03/2024 1:15 PM EST documented in this encounter Ordered Prescriptions Prescription Sig Dispense Quantity Refills Last Filled Start Date End Date hydrALAZINE (APRESOLINE) 25 mg tabletIndications:E ssential hypertension Take 1 tablet (25 mg total) by mouth 2 (two) times a day. 10/03/2024 documented in this encounter Progress Notes * Melva Carey NP - 10/03/2024 1:10 PM ESTAssociated Problem(s): Paroxysmal atrial fibrillation (CMS/HCC) Now status post AV node ablation and [...] continuing this and she wishes to continue withthe current plan. She is aware to seek urgent medical attention for any uncontrolled bleeding, signs or symptoms of GI or other internal bleeding, or for any head injury. This is the appropriate dosefor her age of greater than 80 years, weight of greater than 60 kg, and creatinine of less than 1.5. Orders: Transthoracic echocardiogram (TTE) complete with PRN contrast, bubble, strain, and 3D order panel; Future Cardiac holter monitor (<= 48 hours); Future * Melva Carey NP - 10/03/2024 1:10 PM ESTAssociated Problem(s): Secondary hypercoagulable state (CMS/HCC) * Melva Carey NP - 10/03/2024 1:10 PM ESTAssociated Problem(s): Atrioventricular block, complete (CMS/HCC) * Melva Carey NP - 10/03/2024 1:10 PM ESTAssociated Problem(s): Status post biventricular pacemaker Orders: Transthoracic echocardiogram (TTE) complete with PRN contrast, bubble, strain, and 3D order panel; Future Cardiac holter monitor (<= 48 hours); Future * Melva Carey NP - 10/03/2024 1:10 PM ESTAssociated Problem(s): Chronic diastolic heart failure (CMS/HCC) She presents today continuing to report ongoing dyspnea on exertion as well as orthopnea which havebeen ongoing for many years. The patient was previously unable to tolerate Jardiance due to genitourinary side effects; this has subsequently been stopped. Dr. Sharif recently started her on spironolactone which appears to have aided with decreasing her peripheral edema significantly; given that thiswas just started approximately 5 days ago, we [...] the legs or ankles, or weight gain ofmore than 2 pounds in one day or 4 pounds in one week. Orders: ECG 12 lead Transthoracic echocardiogram (TTE) complete with PRN contrast, bubble, strain, and 3D order panel; Future * Melva Carey NP - 10/03/2024 1:10 PM ESTAssociated Problem(s): Essential hypertension Initial blood pressure was elevated with improvement upon recheck; she is following with nephrologyfor blood pressure management which appears to be improved after the addition of spironolactone. Wewill not make any further changes today as [...] bubble, strain, and 3D order panel; Future * Melva Carey NP - 10/03/2024 1:10 PM ESTAssociated Problem(s): Mixed hyperlipidemia Most recent lipid panel completed 08/04/2023 showed a total cholesterol of 133, LDL of 78, HDL of 43,and triglycerides of 94. We will update this today and readdress as indicated; in the interim, continue atorvastatin 40 mg daily. Orders: Nuclear stress test with myocardial perfusion; Future Lipid panel; Future * Melva Carey NP - 10/03/2024 1:10 PM ESTAssociated Problem(s): HARLEY (dyspnea on exertion) As above; we must consider that her [...] Cardiac holter monitor (<= 48 hours); Future documented in this encounter Plan of Treatment Upcoming Encounters Date Type Department Care Team (Late st Contact Info) Description 10/30/2024 9:00 AM EDT Ancillary Procedure [facility] [address] [address] 11/06/2024 1:30 PM EDT Ancillary Procedure [facility] [address] [facility] [address] [place] [address] 11/27/2024 8:45 AM EDT Appointment [facility] Xray [address] [place] [address] 12/12/2024 2:30 PM EDT Ancillary Procedure [facility] [address] [place] [address] 12/20/2024 1:30 PM EDT Ancillary Procedure [facility]iology [facility] [address] [address] Scheduled Orders Name Type Priority Associated Diagnoses Order Schedule Nuclear stress test with myocardial perfusion Cardiac Nuclear Medicine Routine Essential hypertension Mixed hyperlipidemia HARLEY (dyspnea on exertion) 1 Occurrences starting 10/03/2024 until 10/03/2025 Transthoracic echocardiogram (TTE) complete with PRN contrast, bubble, strain, and 3D order panel Echocardiography Routine Paroxysmal atrial fibrillation (CMS/HCC) Status post biventricular pacemaker Chronic diastolic heart failure (CMS/HCC) Essential hypertension HARLEY (dyspnea on exertion) 1 Occurrences starting 10/03/2024 until 10/03/2025 Cardiac holter monitor (<= 48 hours) Cardiac Services Routine Paroxysmal atrial fibrillation (CMS/HCC) Status post biventricular pacemaker HARLEY (dyspnea on exertion) Palpitations 1 Occurrences starting 10/03/2024 until 10/03/2025 Lipid panel Lab Routine Mixed hyperlipidemia 1 Occurrences starting 10/04/2024 until 10/04/2025 documented as of this encounter Procedures Procedure Name Priority Date/Time Associated Diagnosis Comments ECG 12-LEAD Routine 10/04/2024 7:01 AM EST Chronic diastolic heart failure (CMS/HCC) documented in this encounter Results * ECG 12 lead (10/04/2024 7:01 AM EST) Ventricular Rate ECG 80 BPM GEMUSE Atrial Rate 90 BPM GEMUSE QRS Duration 160 ms GEMUSE Q-T Interval 446 ms GEMUSE QTc 514 ms GEMUSE R Madison -34 degrees GEMUSE T [place] 98 degrees GEMUSE ECG Interpretation Ventricular-pa cristy rhythm When compared with ECG of 19-JUL-2013 07:07, Electronic ventricular pacemaker has replaced Sinus rhythm Confirmed by DAYTON NG ([id number]) on 10/04/2024 7:50:41 AM GEMUSE 10/03/2024 1:23 PM EST 10/04/2024 7:50 AM EST Melva Carey NP ECG ORDERABLES Edite d Result - Final GEMUSE documented in this encounter Visit Diagnoses Diagnosis Palpitations- Primary Paroxysmal atrial fibrillation (CMS/HCC) Atrial fibrillation Secondary hypercoagulable state (CMS/HCC) Secondary hypercoagulable state Atrioventricular block, complete (CMS/HCC) Atrioventricular block, complete Status post biventricular pacemaker Chronic diastolic heart failure (CMS/HCC) Chronic diastolic heart failure HARLEY (dyspnea on exertion) Other dyspnea and respiratory abnormality Essential hypertension Unspecified essential hypertension Mixed hyperlipidemia Encounter for adjustment or management of cardiac device documented in this encounter Discontinued Medications Medication Sig Discontinue Reason Start Date End Da te empagliflozin (Jardiance) 10 mg tablet Take 10 mg by mouth daily. Side effects 02/25/2024 10/04/2024 losartan (COZAAR) 50 mg tablet Take 1 tablet (50 mg total) by mouth 2 (two) times a day. Discontinued by another clinician 10/03/2024 hydrALAZINE (APRESOLINE) 25 mg tablet Take 1 tablet (25 mg total) by mouth as needed. Reorder 10/03/2024 empagliflozin (Jardiance) 10 mg tablet Take 10 mg by mouth daily. Side effects 02/25/2024 10/04/2024 documented as of this encounter Historical Medications * This list may reflect changes made after this encounter. spironolactone (ALDACTONE) 25 mg tablet Take by mouth. olmesartan (BENICAR) 40 mg tablet Take 1 tablet (40 mg total) by mouth 1 (one) time each day. added in this encounter Care Teams Associate Professor Of Literacy Relationship Specialty Start Date End Date Alfreda Mathew MD [address] [place] [address] PCP - General Internal Medicine 09/06/24 documented as of this encounter
--- OUTSIDE RECORDS SUMMARY | 2024-10-12 10:29 | XMS_ITS | Data Portability ---
Author Organization [facility] Address [address] [place] [address] Assessment No assessment recorded. Plan of Treatment [...] Address Organization Details Recorded Time No complaints [id number] Active Status : 'A'; Not Available [employer] 4 09:24:59 Problem Notes None recorded. Procedures Surgical History Date Name Laterality Status Provider Name and Address Organization Details Recorded Time 4 Sports Shoulder completed Christopher Rogers PA-C [address] [facility] [address], [place], [address], [place] [facility] 11/17/2023 13:19:22 Imaging Results Imaging Date Name Status [facility] by [facility] Details LastModified Time 12/13/2021 imaging/diag nostic result completed Information not available 04/01/2024 10:51:10 05/30/2021 imaging/diag nostic result completed Information not available 04/01/2024 10:51:21 Procedure Notes None recorded. Medical Equipment None Reported. Allergies Allergen ID Allergen Name Allergen Category Reaction Reaction Severity Criticality Documentation Date Start Date Code Code System Note Provider Name and Address Organization Details Recorded Time 769009 ibuprofen medicatio n Not available Not available Not available 10/04/20232020 5640 RxNorm Aller gyRea ction : 'blee ding' ; NICO lebron [facility] 4 13:07:07 536703 Non-stero idal anti-infl ammatory agent (product) medicatio n Not available Not available Not available 10/04/20232020 12464 005 SNOMED NICO lebron [facility] 4 13:07:09 Medications Name Sig Start Date [...] Updated DateTime 11/17/2023 167.64 cm 28.2 kg/m2 28107.66 g NICO DOVE [place] [facility] [place] [facility] 11/17/2023 13:06:54 Social History None recorded. Functional Status None recorded. Mental Status None recorded. Family History Nothing Reported. Medical History No medical history recorded. Gynecological HistoryNo gynecological history recorded. 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 [id number] 389540 M75.121 Health Concerns Section Related Observation LastModified by Organization Detai ls LastModified Time None Recorded Concern Status LastModified by Organization Details LastModified Time None Recorded Advance Directives Directive None Recorded Payers Encounter Date Sequence Insurance Name Policy Number Policy Bautista Covered Member ID Bautista Member ID Guarantor Name 11/17/2023 1 [place] (MEDICARE REPLACEMENT PPO) [id number] Emelia Toczek [id number] Emelia Toczek 11/17/2023 2 [place] [facility] Emelia Toczek [id number] Emelia Toczek Notes Date Note Type Note [...] shoulder.Right Shoulder exam : ROM forward elevation 120? ? ?, ER 45? ? ?, IR to L5 there is mild tenderness [...] require going forward. Christopher Rogers PA-C [address] [facility] [address], [place], [address], [place] [facility] 11/17/2023 13:20:13 OBGyn Episode No OBEpisode recorded.
--- OUTSIDE RECORDS SUMMARY | 2024-10-12 10:29 | XMS_ITS | Encounter Summary ---
Author Organization [facility] Address [address] [address] Phone Care Team Providers Care Drywall Hanger Helper Name Role Phone Alfreda Mathew MD Primary Care Provider [phone] Encounter Details Date Type Department Care Team (Late st Contact Info) Description 09/27/2024 Office Communication [facility] [address] [phone] Antonietta Baptiste [address] [address] Social History Tobacco Use Types Packs/Day Years [...] on file documented as of this encounter Plan of Treatment Upcoming Encounters Date Type Department Care Team (Late st Contact Info) Description 11/20/2024 4:00 PM EDT Office Visit [facility] [address] [address] Moose Sharif MD [address] [address] documented as of this encounter Visit Diagnoses Not on filedocumented in this encounter Care Teams Drywall Hanger Helper Relationship Specialty Start Date End Date Alfreda Mathew MD [address] [place] [address] PCP - General Internal Medicine 11/19/23 documented as of this encounter
--- OUTSIDE RECORDS SUMMARY | 2024-10-12 10:29 | XMS_ITS | Clinical Summary ---
Author Organization [facility] Address [address] [facility] [address] [place] [address] Phone Care Team Providers Care Custom Bookbinder Name Role Phone Alfreda Mathew MD Primary Care Provider [phone] Allergies No known active allergies Medications apixaban (ELIQUIS) 2.5 MG tablet Take 5 mg by mouth in the morning and 5 mg in the evening. Active Ascorbic Acid (vitamin C) 100 MG tablet Take 100 mg by mouth 1 (one) time each day Active atorvastatin (LIPITOR) 40 MG tablet Take 40 mg by mouth 1 (one) time each day Active Calcium Carbonate Antacid (CALCIUM CARBONATE PO) Take 1 tablet by mouth 1 (one) time each day Active dorzolamide (TRUSOPT) 2 % ophthalmic solution 1 drop in the morning and 1 drop in the evening and 1 drop before bedtime. Active glucosamine-cho ndroitin 500-400 MG tablet Take 1 tablet by mouth in the morning and 1 tablet in the evening and 1 tablet before bedtime. Active esomeprazole (NexIUM) [address] capsule Take 40 mg by mouth 1 (one) time each day before breakfast Do not open capsule. Active Sodium Fluoride (DentaGel) 1.1 % gel Apply to teeth Activ e fluticasone (FLONASE) 50 MCG/ACT nasal spray Administer 1 spray into each nostril 1 (one) time each day Active furosemide (LASIX) 40 MG tablet Take 40 mg by mouth 1 (one) time each day Active gabapentin (NEURONTIN) 100 MG capsule Take 100 mg by mouth in the morning and 100 mg in the evening. Active mirtazapine (REMERON) 7.5 MG tablet Take 7.5 mg by mouth every night Active Multiple Vitamin (multivitamin) capsule Take 1 capsule by mouth 1 (one) time each day Active omega-3 acid ethyl esters (LOVAZA) 1 g capsule Take 2 g by mouth in the morning and 2 g in the evening. Active amLODIPine (NORVASC) 5 MG tablet Take 1 tablet (5 mg total) by mouth 1 (one) time each day 90 tablet 3 5 Active hydrALAZINE 50 MG tablet Take 1 tablet (50 mg total) by mouth in the morning and 1 tablet (50 mg total) in the evening and 1 tablet (50 mg total) before bedtime. 270 tablet 3 5 08/23/19 26 Active olmesartan (Benicar) 40 MG tablet Take 1 tablet (40 mg total) by mouth 1 (one) time each day 90 tablet 3 5 08/28/19 26 Active spironolactone (Aldactone) 25 MG tablet Take 1 tablet (25 mg total) by mouth 1 (one) time each day 90 tablet 3 5 09/28/19 26 Active Active Problems Problem Noted Date Diagnosed Date Chronic kidney disease stage 3 11/19/2023 Hypertensive chronic kidney disease 11/19/2023 Atrial fibrillation 11/16/2023 Gastroesophageal reflux disease 11/16/2023 Hyperlipidemia 11/16/2023 Essential (primary) hypertension 11/16/2023 Encounters Date Type Department Care Team Description 09/28/2024 Office Communication [facility] [address] [phone] Shirlene Saenz 09/27/2024 Office Communication [facility] [address] [phone] Antonietta Baptiste 08/27/2024 Refill [facility] [address] [phone] Moose Sharif MD 08/23/2024 Refill [facility] [address] [phone] Melva Callahan MA 08/22/2024 Refill [facility] [address] [facility] [address] [place] [phone] Moose Sharif MD from Last 3 Months Family History Medical History Relation Comments Heart failure Mother Hyperlipidemia Mother Hypertension Mother Relation Status Comments Mother Social History Tobacco Use Types Packs/Day Years Used Date Smoking Tobacco: Never Smokeless Tobacco: Never Tobacco Cessation:Counseling Given: No Alcohol Use Standard Drinks/Week Comments Never 0 (1 standard drink = 0.6 oz pur e alcohol) Comments Unknown Sex and Gender Information Value Date Recorded Sex Assigned at Not on file Legal Sex Female 1:12 PM EDT Gender Identity Not on file Sexual Orientation Not on file Last Filed Vital Signs Vital Sign Reading Time Taken Comments Blood Pressure 113/71 02/21/2024 2:19 PM EDT Pulse 78 02/21/2024 2:19 PM EDT Temperature - - Respiratory Rate - - Oxygen Saturation - - Inhaled Oxygen Concentration - - Weight 75 kg (165 lb 6.4 oz) 02/21/2024 2:19 PM EDT Height - - Body Mass Index - - Plan of Treatment Upcoming Encounters Date Type Department Care Team (Late st Contact Info) Description 11/20/2024 4:00 PM EDT Office Visit [facility] [address] [facility] [address] [place] [phone] Moose Sharif MD [address] [facility] [address] [place] [phone] Health Maintenance Due Date Last Done Comments Influenza Vaccine (#1) 2024 6, 05/23/2016 Pneumococcal Vaccine: 65+ Years Completed 07/08/2015, 06/01/2012 Hepatitis B Vaccine Aged Out No longe r eligible based on patient's age to complete this topic Procedures Procedure Name Priority Date/Time Associated Diagnosis Comments PTH, INTACT Routine 08/14/2024 3:59 PM EST VITAMIN D 25 HYDROXY Routine 08/14/2024 3:59 PM EST PROTEIN / CREATININE RATIO, URINE Routine 08/14/2024 3:59 PM EST RENAL FUNCTION PANEL Routine 08/14/2024 3:59 PM EST from Last 3 Months Results * (ABNORMAL) Protein, Total, Random Urine w/Creatinine (Protein/Creat Ratio) (08/14/2024 3:59 PM EST) Creatinine, Ur 33.3 Not Estab. mg/dL [facility] Protein, Ur 9.8 Not Estab. mg/dL [facility] Urine Protein/Creati nine Ratio 294(H) 0 - 200 mg/g creat [facility] 08/14/2024 3:59 PM EST 08/14/2024 us Moose Sharif MD LAB URINE ORDERABLES Final [facility] lt [facility] [address] [place] [phone] * Vitamin D 25 Hydroxy (08/14/2024 3:59 PM EST) Vitamin D, 25-OH, Total 41.8 30.0 - 100.0 ng/mL [facility] Comment: Vitamin D deficiency has been defined by the [place] of Medicine and an Endocrine Society practice guideline as a level of serum 25-OH vitamin D less than 20 ng/mL (1,2). The Endocrine Society went on to further define vitamin D insufficiency as a level between 21 and 29 ng/mL (2). 1. IOM ([place] of Medicine). 2010. Dietary reference ?? intakes for calcium and D. [place]: The ?? National AcademAnimoto Press. 2. Juancarlos MF, [place], Shelbie KNOTT, et al. ?? Evaluation, treatment, and prevention of vitamin D ?? deficiency: an Endocrine Society clinical practice ?? guideline. JCEM. 2011 Jan; 96(7):4031-30. 08/14/2024 3:59 PM EST 08/14/2024 us Moose Sharif MD LAB BLOOD ORDERABLES Final Resu lt [facility] [address] [place] [address] * PTH, Intact (08/14/2024 3:59 PM EST) PTH 42 15 - 65 pg/mL [facility] 08/14/2024 3:59 PM EST 08/14/2024 us Moose Sharif MD LAB BLOOD ORDERABLES Final Resu lt Performing Organization Address City/[facility]/ZIP Co de Phone Number [facility] [address] [place] [address] * (ABNORMAL) Renal Function Panel (08/14/2024 3:59 PM EST) Glucose 112(H) 70 - 99 mg/dL [facility] BUN 10 8 - 27 mg/dL [facility] Creatinine 0.90 0.57 - 1.00 mg/dL [facility] eGFR CKD-EPI CR 2020 63 >59 mL/min/1.7 3 [facility] BUN/Creatinine Ratio 11(L) 12 - 28 [facility] Sodium 140 134 - 144 mmol/L [facility] Potassium 4.2 3.5 - 5.2 mmol/L [facility] Chloride 101 96 - 106 mmol/L [facility] Bicarbonate (CO2) 25 20 - 29 mmol/L [facility] Calcium 9.4 8.7 - 10.3 mg/dL [facility] Albumin 3.9 3.7 - 4.7 g/dL [facility] Phosphorus 4.0 3.0 - 4.3 mg/dL [facility] 08/14/2024 3:59 PM EST 08/14/2024 us Moose Sharif MD LAB BLOOD ORDERABLES Final Resu lt [facility] [address] [place] [phone] from Last 3 Months Insurance [facility] [place]ID [place] [facility] [place] Care Teams Custom Bookbinder Relationship Specialty Start Date End Date Alfreda Mathew MD [facility] [place] [address] PCP - General Internal Medicine 11/19/23
--- OUTSIDE RECORDS SUMMARY | 2024-10-12 10:29 | XMS_ITS | Encounter Summary ---
Author Organization [facility] Address [address] [phone] Phone Care Team Providers Care Flap Lining Binder Name Role Phone Alfreda Mathew MD Primary Care Provider [phone] Reason for Visit * Reason Onset Date Comments Med Refill 08/27/2024 Encounter Details Date Type Department Care Team (Late st Contact Info) Description 08/27/2024 Refill [facility] [address] [phone] Moose Sharif MD [facility] [phone] Social History Tobacco Use Types [...] Office Visit [facility] [address] [phone] Moose Sharif MD [address] [phone] documented as of this encounter Visit Diagnoses Not on filedocumented in this encounter Care Teams Flap Lining Binder Relationship Specialty Start Date End Date Alfreda Mathew MD [facility] [place] [address] PCP - General Internal Medicine 11/19/23 documented as of this encounter
[2024-10-12 10:34] LABS: Alanine Aminotransferase 19 U/L (0-31); Albumin Level 3.7 g/dL (3.5-5.0); Alkaline Phosphatase 74 U/L (39-117); Anion Gap 10 (12-20); Aspartate Amino Transferase 23 U/L (5-31); Bilirubin Total 0.7 mg/dL (0.0-1.0); Blood Urea Nitrogen 9 mg/dL (9-16); Calcium 9.6 mg/dL (8.4-10.2); Carbon Dioxide 30 mmol/L (22-29); Chloride 109 mmol/L (96-108); Cholesterol 156 mg/dL (<200); Estimated Glomerular Filt Rate > 60; Glucose Fasting 91 mg/dL (60-99); HDL Cholesterol 42 mg/dL (>40); LDL Cholesterol Calculated 101 mg/dL (<100); Potassium 3.4 mmol/L (3.3-5.1); Sodium 146 mmol/L (135-145); Total Protein 7.1 g/dL (6.5-8.0); Triglycerides 67 mg/dL (<150)
[2024-10-12 10:54] LABS: TSH reflex Free T4 1.81 uIU/mL (0.32-4.0); Vitamin D 25-OH Total 44.7 ng/mL (>30)
== END 2024-10-12 09:08 | disposition home or self-care (01) ==
LOC: HO.HMGCLDS 09:07
PROVIDERS: PCP Internal Medicine; Visit Provider Internal Medicine
DX: I10 Essential (primary) hypertension (principal); E78.5 Hyperlipidemia, unspecified; E55.9 Vitamin D deficiency, unspecified; I48.91 Unspecified atrial fibrillation
CPT/HCPCS: 36415; 80053; 80061; 82306; 84443; 85025

== ENCOUNTER 2024-10-24 12:53 | Outpatient (AMB) | payer MEDICARE, MEDICAID, SELFPAY ==
[2024-10-24 13:14] VITALS: BP 130/80; PULSE 83; RESP 18; TEMP 37; O2SAT 96; BMI 28.0
--- NOTE | 2024-10-24 13:14 | A.OFFPC_ITS ---
Vital Signs 10/24/24 13:14 Height 5 ft 5 in Weight 168 lb BMI 28.0 BP 130/80 Blood Pressure Location Rt brachial Position Sitting Respiration 18 Pulse 83 Pulse Source Pulse Oximeter Temp 98.6 F Temp Source Oral Pulse Oximetry (%) 96 Oxygen Delivery Method Room Air Intake Visit Reasons: Annual PE Intake Note: Pt is here today for PE. Pt states that she has been feeling out of balance. Allergies No Known Allergies Allergy (Verified 10/24/24 13:15) Medication List - Last Reconciled 10/24/24 by Alfreda Mathew MD albuterol sulfate 90 mcg/actuation 2 puffs inhalation Q6H PRN amlodipine 5 mg PO DAILY apixaban (Eliquis) 5 mg PO BID ascorbate calcium (vitamin C) 2 grams PO DAILY atorvastatin 40 mg PO DAILY baclofen 10 mg PO TID calcium carbonate (Calcium 500) 1,000 mg PO DAILY cranberry fruit 500 mg PO DAILY dorzolamide-timolol 22.3-6.8 mg/mL ophthalmic (eye) esomeprazole magnesium 40 mg PO BID estradiol 0.01%(0.1mg/gram) pea size to urethra vaginally daily; fluoride (sodium) 1.1% 1 appl dental DAILY fluticasone propionate 50 mcg/actuation 1 spray intranasal BID PRN furosemide 20 mg PO DAILY gabapentin 100 mg PO BID garlic 5 mg PO DAILY drligquhkng-P-Wryseewbpmacnlt (Triple Flex Mood, Joint JUVENAL-e) PO hydralazine 25 mg PO BID lactobacillus combination no.4 (Probiotic) 3,000 mmu cells PO DAILY mirtazapine 7.5 mg PO BEDTIME multivitamin 1 tab PO DAILY olmesartan 40 mg PO DAILY omega-3 fatty acids (Fish Oil Concentrate) 1,200 PO daily; spironolactone 1 tab a day 2 hours after morning pills valacyclovir 500 mg PO BID walker Walker with seat Tobacco use date assessed: 10/24/24 Fall risk assessment: 2 + Falls in past year Last assessed Fall Risk: 10/24/24 Dental Screening Dental Screen Date: 10/24/24 Did you have a dental visit in the last 12 months?: Yes Did you have a dental problem in the last 6 months where you did not have access to dental care?: No Was dental information given to patient?: Patient has dentist HPI Annual PE HPI Details Pt presents for PE. PFSH Medical History (Updated 10/24/24 @ 13:41 by Alfreda Mathew MD) Edema Cough Dysuria Shoulder pain, right Venous insufficiency (chronic) (peripheral) Sciatica Depression Ear pain, left Hearing loss Radiculopathy of cervical spine GERD (gastroesophageal reflux disease) Light sensitivity Hyperlipidemia Diastolic CHF HTN (hypertension) Atrial fibrillation Surgical History H/O colonoscopy No pertinent past surgical history Family History Father No problems noted. Mother No problems noted. Sister No problems noted. Sister No problems noted. Son No problems noted. Daughter No problems noted. Social History Housing: House Alcohol intake: current Patient Tobacco Use Status: Never used Tobacco e-Cigarette/Vaping Use: Never Used service: No Current occupational status: retired Cognitive needs: No Hearing needs: No Vision needs: Yes Questionnaire PHQ-9 Over the last 2 weeks, how often have you been bothered by any of the following problems? 1. Little interest or pleasure in doing things: not at all 2. Feeling down, depressed, or hopeless: not at all 3. Trouble falling or staying asleep, or sleeping too much: not at all 4. Feeling tired or having little energy: several days 5. Poor appetite or overeating: not at all 6. Feeling bad about yourself - or that you are a failure or have let yourself or your family down: not at all 7. Trouble concentrating on things, such as reading the newspaper or watching television: not at all 8. Moving or speaking so slowly that other people could have noticed. Or the opp osite - being so fidgety or restless that you have been moving around a lot more than usual: not at all 9. Thoughts that you would be better off or of hurting yourself in some way: not at all Total score: 1 Depression Screening Interpretation: Negative Depression Screening Done: Yes 70305 - PHQ-9 Billing: Yes Source: Developed by Drs. Jax Alonso, Kimberly [place], Arie Schwarz and colleagues, with an educational adelaide from [employer]. Thrive Questionnaire Date Thrive assessed: 10/24/24 I am a: Parent/Caregiver What is your living situation today?: I have a steady place to live Within the past 12 months, did the food you bought not last and you didn't have the money to get more?: Never true Within the past 12 months, did you worry whether your food would run out before you got money to buy more?: Never true Do you have trouble paying for medicines?: No Do you have trouble getting transportation to medical appointments?: No Do you have trouble paying your heating and electricity bill?: No Do you have trouble taking care of your child, family member or friend?: Yes Do you have trouble with day-to-day activities such as bathing, preparing meals, shopping, managing finances, etc.?: Yes Are you currently unemployed and looking for a job?: No Are you interested in more education?: No Currently or been in a relationship where the following occur: No concerns reported THRIVE Score: 0 AUDIT C Alcohol Use Questionnaire (AUDIT-C) 1. How often do you have a drink containing alcohol?: Never 3. How often do you have six or more drinks on one occasion?: Never Total Score: 0 SHAHAB-7 AMB Questionnaire SHAHAB-7 Date SHAHAB - 7 assessed: 10/24/24 Feeling nervous, anxious, or on edge: 0 = Not at all Not being able to stop or control worryin = Not at all Worrying too much about different things: 0 = Not at all Trouble relaxin = Not at all Being so restless that it is hard to sit still: 0 = Not at all Becoming easily annoyed or irritable: 0 = Not at all Feeling afraid as if something awful might happen: 0 = Not at all Total SHAHAB-7 score (0-4 normal; 5-9 mild; 10-14 moderate; 15-21 severe): 0 Source: Developed by Drs. Jax Alonso, Kimberly [place], Arie Schwarz and colleagues, with an educational adelaide from [employer]. SHAHAB-7 Assessment Billing SHAHAB-7 Assessment Tool: SHAHAB-7 Assessment 69115 Review of Systems Const All systems reviewed & are unremarkable except as noted in HPI and below Eyes Reports no additional complaints ENT Reports no additional complaints Card Reports no additional complaints Resp Reports no additional complaints GI Reports no additional complaints Reports no additional complaints Physical exam (Primary Care) Vital Signs: Last Vital Signs Temp 98.6 F 10/24/24 13:14 Pulse 83 10/24/24 13:14 Resp 18 10/24/24 13:14 Pulse Ox 96 10/24/24 13:14 Oxygen Delivery Method Room Air 10/24/24 13:14 BMI result Body Mass Index 28.0 Tobacco/Smoking Status: Tobacco use Status Tobacco use date assessed 10/24/24 10/24/24 13:17 Patient Tobacco Use Status Never used Tobacco 10/24/24 13:17 e-Cigarette/Vaping Use Never Used 10/24/24 13:17 PHQ-9: PHQ-9 Score PHQ-9: Total score 1 10/24/24 13:38 Depression Screening Interpretation: Negative Thrive Assessment: Date of Thrive Assessment Date Thrive assessed 10/24/24 10/24/24 13:38 Currently or been in a relationship where the following occur: No concerns reported Const General: no acute distress HENMT Head: Yes normal to inspection Ears: hearing grossly normal bilaterally Throat: Yes posterior oropharynx normal Eyes General: appearance normal, both eyes and all related structures Neck Neck: Yes no lymphadenopathy and Yes supple Resp Effort & Inspection: normal respiratory effort Auscultation: clear to auscultation bilaterally Cardio Rhythm: regular rhythm Heart sounds: S1 normal heart sound present and S2 normal heart sound present GI Inspection: Yes normal to inspection Palpation (GI): Soft to palpation Percussion: Yes normal to percussion Auscultation: normal bowel sounds Coding Level of Care Code Est Pt Prev Care >65y(87978) Diagnoses Atrial fibrillation I48.91 Depression F32.9 HTN (hypertension) I10 Diastolic CHF I50.30 Annual physical exam Z00.00 Additional Codes SHAHAB-7 Assessment Billing - SHAHAB-7 Assessment Tool: SHAHAB-7 Assessment 71963 ([id number]) PHQ-9 - 06445 - PHQ-9 Billing: Yes ([id number]) Assessment & Plan Assessment & Plan (1) Atrial fibrillation: Comment: f/u Dr. Marin , s/p multiple ablations. s/p pacemaker Code(s): I48.91 - Unspecified atrial fibrillation Category: Medical Plan: Continue current medications follow-up with Cardiology (2) Depression: Code(s): F32.9 - Major depressive disorder, single episode, unspecified Category: Medical Plan: Controlled on mirtazapine (3) HTN (hypertension): Comment: f/u with Dr. Borrero for meds adjustment Code(s): I10 - Essential (primary) hypertension Category: Medical Plan: Patient is established with Cardiology and road packer operator for labile hypertension (4) Diastolic CHF: Code(s): I50.30 - Unspecified diastolic (congestive) heart failure Category: Medical Plan: Continue current medications (5) Annual physical exam: Code(s): Z00.00 - Encounter for general adult medical examination without abnormal findings Category: Medical Plan: Well-balanced diet regular physical activity discussed with the patient Orders: Orders Lipid Panel 1 Year E55.9 - Vitamin D deficiency, unspecified, I10 - Essential (primary) hypertension, I48.91 - Unspecified atrial fibrillation, I50.30 - Unspecified diastolic (congestive) heart failure, Z00.00 - Encounter for general adult medical examination without abnormal findings Comprehensive [place]. Panel Fast 1 Year E55.9 - Vitamin D deficiency, unspecified, I10 - Essential (primary) hypertension, I48.91 - Unspecified atrial fibrillation, I50.30 - Unspecified diastolic (congestive) heart failure, Z00.00 - Encounter for general adult medical examination without abnormal findings Complete Blood Count Auto Diff 1 Year E55.9 - Vitamin D deficiency, unspecified , I10 - Essential (primary) hypertension, I48.91 - Unspecified atrial fibrillation, I50.30 - Unspecified diastolic (congestive) heart failure, Z00.00 - Encounter for general adult medical examination without abnormal findings Hemoglobin A1c 1 Year E55.9 - Vitamin D deficiency, unspecified, I10 - Essential (primary) hypertension, I48.91 - Unspecified atrial fibrillation, I50.30 - Unspecified diastolic (congestive) heart failure, Z00.00 - Encounter for general adult medical examination without abnormal findings TSH reflex Free T4 1 Year E55.9 - Vitamin D deficiency, unspecified, I10 - Essential (primary) hypertension, I48.91 - Unspecified atrial fibrillation, I50.30 - Unspecified diastolic (congestive) heart failure, Z00.00 - Encounter fo r general adult medical examination without abnormal findings Vitamin D 25-OH Total 1 Year E55.9 - Vitamin D deficiency, unspecified, I10 - Essential (primary) hypertension, I48.91 - Unspecified atrial fibrillation, I50.30 - Unspecified diastolic (congestive) heart failure, Z00.00 - Encounter for general adult medical examination without abnormal findings Medications: Changed From gabapentin 100 mg PO TID 270 caps 1RF To gabapentin 100 mg PO BID
== END 2024-10-24 13:59 | disposition home or self-care (01) ==
LOC: HO.HMCC 12:54
PROVIDERS: PCP Internal Medicine; Visit Provider Internal Medicine
DX: Z00.00 Encounter for general adult medical examination without abnormal findings (principal); I48.91 Unspecified atrial fibrillation; I50.30 Unspecified diastolic (congestive) heart failure; F32.9 Major depressive disorder, single episode, unspecified; I10 Essential (primary) hypertension

== ENCOUNTER → 2024-10-24 12:53 | Outpatient (BNVA) | payer MEDICARE, MEDICAID, SELFPAY | PROVIDERS: PCP Internal Medicine; Visit Provider Internal Medicine | DX: Z00.00 Encounter for general adult medical examination without abnormal findings (principal); I11.0 Hypertensive heart disease with heart failure; I50.30 Unspecified diastolic (congestive) heart failure; I48.91 Unspecified atrial fibrillation; F32.9 Major depressive disorder, single episode, unspecified | CPT/HCPCS: 96127; 99397 ==

== ENCOUNTER 2025-06-15 14:39 | Outpatient (REF) | payer MEDICARE, MEDICAID, SELFPAY ==
[2025-06-15 16:13] LABS: MANUAL DIFF FLAG NO
[2025-06-15 16:22] LABS: Hematocrit 27.6 % (37.0-47.0); Hemoglobin 8.5 g/dl (12.0-16.0); Imm Gran Abs Auto 0.01 X10*3/uL (0.00-0.03); Imm Gran Pct Auto 0.2 % (0.0-0.4); Lymphocytes Absolute Auto 1.4 X10*3/uL (1.2-4.9); Mean Corpuscular HGB Conc 30.8 g/dl (31.0-35.0); Mean Corpuscular Hemoglobin 28.0 pg (27.0-33.0); Mean Corpuscular Volume 90.8 fL (80.0-98.0); NRBC Abs Auto 0.000 X10*3/uL (0.0-0.012); NRBC Pct Auto 0.0 /100WBC (0.0-0.2); Platelet Count 413 X10*3/uL (160-400); Red Blood Count 3.04 X10*6/uL (4.20-5.50); White Blood Count 6.2 X10*3/uL (4.8-10.8)
[2025-06-15 16:36] LABS: Alanine Aminotransferase 14 U/L (0-31); Albumin Level 3.7 g/dL (3.5-5.0); Alkaline Phosphatase 81 U/L (39-117); Anion Gap 11 (12-20); Aspartate Amino Transferase 31 U/L (5-31); Blood Urea Nitrogen 12 mg/dL (9-16); Calcium 9.0 mg/dL (8.4-10.2); Carbon Dioxide 30 mmol/L (22-29); Chloride 108 mmol/L (96-108); Estimated Glomerular Filt Rate > 60; Iron 21 mcg/dL (30-160); Percent Iron Saturation 7 % (15-50); Potassium 3.5 mmol/L (3.3-5.1); Sodium 145 mmol/L (135-145); Total Iron Binding Capacity 306 mcg/dL (228-428); Total Protein 6.2 g/dL (6.5-8.0); Unsaturated Iron Binding 285 ug/dL
--- OUTSIDE RECORDS SUMMARY | 2025-06-15 22:05 | XMS_ITS | Encounter Summary ---
Author Organization [facility] Address [address] [address] Phone Care Team Providers Care Life Scientist Name Role Phone Alfreda Mathew MD Primary Care Provider [phone] Reason for Visit * Reason Onset Date Comments Med Refill 08/27/2024 Encounter Details Date Type Department Care Team (Late st Contact Info) Description 08/27/2024 [facility]ill [facility] [address] [address] Moose Sharif MD [facility] [address] Social History Tobacco Use Types [...] Care Team (Late st Contact Info) Description 11/19/2025 2:15 PM EDT Office Visit [facility] [address] [address] Moose Sharif MD [address] [address] documented as of this encounter Visit Diagnoses Not on filedocumented in this encounter Care Teams Life Scientist Relationship Specialty Start Date End Date Alfreda Mathew MD [facility] [place] [address] PCP - General Internal Medicine 11/19/23 documented as of this encounter
--- OUTSIDE RECORDS SUMMARY | 2025-06-15 22:05 | XMS_ITS | Clinical Summary ---
Author Organization [facility] Address [address] [place] [phone] Phone Care Team Providers Care Security System Sales Consultant Name Role Phone Alfreda Mathew MD Primary Care Provider Medications apixaban (ELIQUIS) 2.5 MG tablet Take 5 mg by mouth in the morning and 5 mg in the evening. Active atorvastatin (LIPITOR) 40 MG tablet Take [...] nostril 1 (one) time each day Active gabapentin [...] and 2 g in the evening. Active hydrALAZINE 50 MG tablet Take 1 tablet (50 mg total) by mouth in the morning and 1 tablet (50 mg total) in the evening and 1 tablet (50 mg total) before bedtime. 270 tablet 3 5 08/23/19 26 Active Additional Information Patient not taking.Reported on 05/14/2025 Multiple Vitamins-Minera ls (PRESERVISION AREDS 2 PO) Take by mouth Acti ve CRANBERRY FRUIT PO Take by mouth Active Mrjmik-DUU-LET (GARLIC/EPA PO) Take by mouth Active furosemide (LASIX) 40 MG tablet Take 0.5 tablets (20 mg total) by mouth 1 (one) time each day 5 Active amLODIPine (Norvasc) 2.5 MG tablet Take 1 tablet (2.5 mg total) by mouth 1 (one) time each day 5 Active spironolactone (Aldactone) 25 MG tablet Take 1 tablet (25 mg total) by mouth 1 (one) time each day 90 tablet 3 5 05/14/20 26 Active Active Problems Problem Noted Date Diagnosed Date Chronic kidney disease, stage 2 (mild) 5 Chronic kidney disease stage 3 11/19/2023 Hypertensive chronic kidney disease 11/19/2023 Atrial fibrillation 11/16/2023 Gastroesophageal reflux disease 11/16/2023 Hyperlipidemia 11/16/2023 Essential (primary) hypertension 11/16/2023 Encounters Date Type Department Care Team Description 05/14/2025 1:45 PM EDT [facility] Visit [facility] [address] [phone] Moose Sharif MD Chronic kidney disease, stage 2 (mild) (Primary Dx); Essential (primary) hypertension 04/22/2025 Orders Only [facility] [address] [phone] Moose Sharif MD Chronic kidney disease, stage 2 (mild); Hypertensive chronic kidney disease from Last 3 Months Family History Medical [...] Sign Reading Time Taken Comments Blood Pressure 130/74 05/14/2025 1:54 PM EDT Pulse 67 05/14/2025 1:54 PM EDT Temperature - - Respiratory Rate - - Oxygen Saturation 97% 11/20/2024 4:04 PM EDT Inhaled Oxygen Concentration - - Weight 72.9 kg (160 lb 12.8 oz) 05/14/2025 1:54 PM EDT Height - - Body Mass Index - - Plan of Treatment Upcoming Encounters Date Type Department Care Team (Late st Contact Info) Description 11/19/2025 2:15 PM EDT Office Visit [facility] [address] [phone] Moose Sharif MD [address] [phone] Health Maintenance Due Date Last Done Comments Influenza Vaccine (#1) 2025 6, 05/23/2016 Pneumococcal Vaccine: 50+ Years Completed 07/08/2015, 06/01/2012 Hepatitis B Vaccine Aged Out No longe r eligible based on patient's age to complete this topic Procedures Procedure Name Priority Date/Time Associated Diagnosis Comments PROTEIN / CREATININE RATIO, URINE Routine 05/10/2025 12:55 PM EDT Chronic kidney disease, stage 2 (mild) Hypertensive chronic kidney disease RENAL FUNCTION PANEL Routine 05/10/2025 12:55 PM EDT Chronic kidney disease, stage 2 (mild) Hypertensive chronic kidney disease from Last 3 Months Results * Urine Protein / creatinine ratio (05/10/2025 12:55 PM EDT) Creatinine, Ur 83.7 Not Estab. mg/dL [facility] Protein, Ur 15.8 Not Estab. mg/dL [facility] Urine Protein/Creatin ine Ratio 189 0 - 200 mg/g creat [facility] [place] Urine specimen (specimen) Urine specimen obtained by clean catch procedure / Unknown 05/10/2025 12:55 PM EDT 05/10/2025 us Moose Sharif MD LAB URINE ORDERABLES Final Resu lt [facility] [place] [address] [place] [phone] * (ABNORMAL) Renal function panel (05/10/2025 12:55 PM EDT) Pathologist [facility] Glucose 100(H) 70 - 99 mg/dL [facility] BUN 12 8 - 27 mg/dL [facility] Creatinine 0.80 0.57 - 1.00 mg/dL [facility] eGFR CKD-EPI CR 2020 72 >59 mL/min/1.7 3 [facility] BUN/Creatinine Ratio 15 12 - 28 [facility] Sodium 138 134 - 144 mmol/L [facility] Potassium 3.7 3.5 - 5.2 mmol/L [facility] Chloride 98 96 - 106 mmol/L [facility] Bicarbonate (CO2) 24 20 - 29 mmol/L [facility] Calcium 9.4 8.7 - 10.3 mg/dL [facility] Albumin 4.0 3.7 - 4.7 g/dL [facility] Phosphorus 3.4 3.0 - 4.3 mg/dL [facility] Blood specimen (specimen) Venous blood / Unknown 05/10/2025 12:55 PM EDT 05/10/2025 us Moose Sharif MD LAB BLOOD ORDERABLES [facility] [place] [address] [place] [phone] from Last 3 Months Insurance [facility] Medicaid [place] [facility] Medicaid [place] Care Teams Security System Sales Consultant Relationship Specialty Start Date End Date Alfreda Mathew MD [address] [place] [address] PCP - General Internal Medicine 11/19/23
--- OUTSIDE RECORDS SUMMARY | 2025-06-15 22:05 | XMS_ITS | Data Portability ---
Author Organization [facility] Address [address] [place] [address] Care Team Providers Care Car Wash Supervisor Name Role Phone DARELL SHELIA Primary Care Provider Assessment No assessment recorded. Plan of Treatment [...] Address Organization Details Recorded Time No complaints 043073236 Active Status : 'A'; Not Available [facility] 4 09:24:59 Problem Notes None recorded. Procedures Surgical History Date Name Laterality Status Provider Name and Address Organization Details Recorded Time 5 Sports Shoulder completed Alfonso Smith PA-C [address] [facility] [facility] [address], [place], [address], [facility] 12/05/2024 12:10:00 4 Sports Shoulder completed Christopher Rogers PA-C [address] [facility] [address], [place], [address], [facility] 11/17/2023 13:19:22 Imaging Results None recorded. Procedure Notes None recorded. Medical Equipment None Reported. Allergies Allergen ID Allergen Name Allergen Category Reaction Reaction Severity Criticality Documentation Date Start Date Code Code System Note Provider Name and Address Organization Details Recorded Time 789425 ibuprofen medicatio n Not available Not available Not available 10/04/20232020 5640 RxNorm Aller gyRea ction : 'blee ding' ; NICO DOVE vi [facility] 13:07:07 326434 Non-stero idal anti-infl ammatory agent (substanc e) medicatio n Not available Not available Not available 10/04/20232020 83032 5008 SNOMED NICO LARABIENVENIDO [place] [facility] 13:07:09 Medications Name Sig Start Date Stop Date Status Note LastModified by Organization Details LastModified Time losartan 50 mg tablet TAKE 1 TABLET (50 MG TOTAL) BY MOUTH IN THE MORNING AND IN THE EVENING active Not Available Not Available No t Available atorvastati n 40 mg tablet TAKE 1 TABLET DAILY active Not Available Not Available No t Available diclofenac 3 % topical gel TAKE 1 APPLICATI ON (TOPICAL) 4 TIMES PER DAY ( NEEDED - PAIN) FOR 15 DAYS active Not Available Not Available No t Available doxycycline hyclate 100 mg capsule TAKE 1 TABLET BY MOUTH 2 TIMES A DAY FOR 7 DAYS 11/16 completed Not Available Not Available Not Available cefpodoxime 200 mg tablet TAKE 1 TABLET BY MOUTH TWICE A DAY FOR 7 DAYS. MUST ADMINISTE R WITH A MEAL/FOOD active Not Available Not Available No t Available azithromyci n 250 mg tablet TAKE 2 TABLETS BY MOUTH TODAY, THEN TAKE 1 TABLET DAILY FOR 4 DAYS DIRECTED active Not Available Not Available No t Available tramadol 37.5 mg-acetamin ophen 325 mg tablet TAKE 1 TO 2 TABLETS EVERY 4 TO 6 HOURS NEEDED FOR PAIN FOR 15 DAYS active Not Available Not Available No t Available fluconazole 150 mg tablet TAKE 1 TABLET BY MOUTH EVERY 3 DAYS FOR 2 DOSES active Not Available Not Available No t Available benzonatate 200 mg capsule TAKE 1 CAPSULE BY MOUTH THREE TIMES A DAY NEEDED FOR COUGH FOR 14 DAYS active Not Available Not Available No t Available metoprolol succinate ER 50 mg tablet,exte nded release 24 hr TAKE 1 TABLET BY MOUTH EVERY DAY active Not Available Not Available No t Available valacyclovi r 1 gram tablet TAKE 2 TABLETS BY MOUTH EVERY 12 HOURS FOR 1 DAY 11/16 completed Not Available Not Available Not Available senna 8.6 mg tablet TAKE 1 TABLET BY MOUTH EVERYDAY AT BEDTIME active Not Available Not Available No t Available famotidine 40 mg tablet TAKE 1 TABLET TWICE A DAY active Not Available Not Available No t Available prednisone 20 mg tablet TAKE 2 TABLETS BY MOUTH DAILY FOR 4 DAYS active Not Available Not Available No t Available hydralazine 25 mg tablet TAKE 1 TABLET (25 MG TOTAL) BY MOUTH IN THE MORNING AND IN THE EVENING active Not Available Not Available No t Available amlodipine 2.5 mg tablet TAKE 1 TABLET ONCE DAILY active Not Available Not Available No t Available amlodipine 5 mg tablet TAKE 1 TABLET ONCE DAILY active Not Available Not Available No t Available valacyclovi r 500 mg tablet TAKE 1 TABLET TWICE A DAY active Not Available Not Available No t Available omeprazole 40 mg capsule,del ayed release 11/16 completed Not Available Not Available Not Available doxycycline monohydrate 100 mg tablet TAKE 1 TABLET BY MOUTH TWICE A DAY FOR 10 DAYS active Not Available Not Available No t Available spironolact one 25 mg tablet TAKE 1 TABLET BY MOUTH 1 TIME EACH DAY. active Not Available Not Available No t Available amoxicillin 875 mg tablet TAKE 1 TABLE TWO TIMES A DAY 11/16 completed Not Available Not Available Not Available baclofen 10 mg tablet TAKE 1 TABLET BY MOUTH THREE TIMES A DAY active Not Available Not Available No t Available amlodipine 10 mg tablet TAKE 1 TABLET BY MOUTH EVERY DAY active Not Available Not Available No t Available benzonatate 100 mg capsule TAKE 1 CAPSULE BY MOUTH EVERY 4 TO 6 HOURS FOR COUGH FOR 10 DAYS active Not Available Not Available No t Available pantoprazol e 40 mg tablet,sukumar yed release 11/16 completed Not Available Not Available Not Available esomeprazol e magnesium 40 mg capsule,del ayed release TAKE 1 CAPSULE BY MOUTH TWICE A DAY active Not Available Not Available No t Available prednisone 50 mg tablet TAKE 1 TABLET BY MOUTH EVERY DAY FOR 5 DAYS active Not Available Not Available No t Available losartan 25 mg tablet TAKE 1 TABLET BY MOUTH EVERY DAY 11/16 completed Not Available Not Available Not Available dorzolamide 22.3 mg-timolol 6.8 mg/mL eye drops INSTILL 1 DROP INTO BOTH EYES TWICE DAILY active Not Available Not Available No t Available codeine 10 mg-guaifene sin 100 mg/5 mL oral liquid TAKE 2 TEASPOONS FUL (10 MLS) BY MOUTH DAILY AT BEDTIME FOR COUGH FOR 5 DAYS active Not Available Not Available No t Available hydralazine 50 mg tablet TAKE 1 TABLET (50 MG) BY MOUTH IN THE MORNING 1 TABLET IN THE EVENING AND 1 TABLET BEFORE BEDTIME active Not Available Not Available No t Available furosemide 20 mg tablet TAKE 1 TABLET DAILY active Not Available Not Available No t Available gabapentin 100 mg capsule TAKE 1 CAPSULE 3 TIMES A DAY active Not Available Not Available No t Available cefuroxime axetil 500 mg tablet TAKE 1 TABLET BY MOUTH 2 TIMES A DAY FOR 5 DAYS active Not Available Not Available No t Available estradiol 0.01% (0.1 mg/gram) vaginal cream APPLY PEA SIZE AMOUNT TO URETHRA VAGINALLY ONCE DAILY active Not Available Not Available No t Available albuterol sulfate HFA 90 mcg/actuati on aerosol inhaler INHALE 2 PUFFS INTO LUNGS EVERY 3 TO 4 HOURS FOR 30 DAYS active Not Available Not Available No t Available lisinopril 40 mg tablet 11/16 completed Not Available Not Available Not Available fluticasone propionate 50 mcg/actuati on nasal spray,suspe nsion USE 1 SPRAY INTRANASA LLY TWICE DAILY NEEDED FOR ALLERGY SYMPTOMS active Not Available Not Available No t Available amoxicillin 875 mg-potassiu m clavulanate 125 mg tablet TAKE 1 TABLET BY MOUTH TWICE A DAY 11/16 completed Not Available Not Available Not Available tobramycin 0.3 %-dexametha sone 0.1 % eye drops,suspe nsion INSTILL 1 DROP INTO RIGHT EYE TWICE A DAY 11/16 completed Not Available Not Available Not Available oxycodone 5 mg tablet TAKE 1 TABLET BY MOUTH EVERY 6 HOURS FOR 5 DAYS NEEDED FOR PAIN active Not Available Not Available No t Available olmesartan 20 mg tablet TAKE 1 TABLET ONCE DAILY active Not Available Not Available No t Available olmesartan 40 mg tablet TAKE 1 TABLET ONCE DAILY active Not Available Not Available No t Available DentaGel 1.1 % BRUSH ONCE A DAY BEFORE BED, DO NOT RINSE active Not Available Not Available No t Available mirtazapine 7.5 mg tablet TAKE 1 TABLET AT BEDTIME active Not Available Not Available No t Available diclofenac 1 % topical gel APPLY 1 TO 2 GRAMS 3 TO 4 TIMES PER DAY NEEDED FOR PAIN 11/16 completed Not Available Not Available Not Available DOK 100 mg tablet TAKE 2 TABLETS BY MOUTH TWICE A DAY active Not Available Not Available No t Available Eliquis 5 mg tablet TAKE 1 TABLET TWICE A DAY active Not Available Not Available No t Available Jardiance 10 mg tablet TAKE 1 TABLET BY MOUTH EVERY DAY active Not Available Not Available No t Available Vitals Date Recorded Body height Body mass index (BMI) Body weight Provider Name and Address Organization Details Last Updated DateTime 11/17/2023 167.64 cm 28.2 kg/m2 95411.66 g NICO DOVE [facility] 11/17/2023 13:06:54 Date Recorded Body weight Body mass index (BMI) Body height Provider Name and Address Organization Details Last Updated DateTime 12/05/2024 33679.74 g 26.6 kg/m2 167.64 cm Jessenia Amaya [facility] 12/05/2024 11:30:46 Social History None recorded. Functional Status None recorded. Mental Status None recorded. Family History Nothing Reported. Medical History Condition Response Heart Trouble Y Kidney/Bladder Problems Y Headaches Y Arthritis Y Hypertension Y Cholesterol Y Gynecological HistoryNo gynecological history recorded. Obstetrics History GPAL:G 0 P 0 0 0 0 Past Encounters Encounter ID Performer Location Encounter Start Date Encounter Closed Date Diagnosis/Indication Diagnosis SNOMED-CT Code Diagnosis ICD10 Code Diagnosis IMO Codes Diagnosis Note [id number] [facility] [address] [place] [address] 11/17/2023 13:01:16 11/17/2023 13:21:48 Nontraumatic complete rupture of rotator cuff of right shoulder [id number] 362168 M75.265 [id number] [facility] [address] [place] [address] 12/05/2024 11:06:38 12/21/2024 14:36:41 Nontraumatic complete rupture of rotator cuff of right shoulder [id number] 463140 M75.121 You have been provided with a cortisone injection in order to reduce the pain and inflammati on that you are experienci ng. The injection consists of two medication s. Cortisone (an anti-infla mmatory that will take 48-72 hours to take effect) and Lidocaine (a numbing agent that will last 2-3 hours). Please note that not everyone will have a lasting response following the injection. PATIENT INSTRUCTIO NSOnce the Lidocaine wears off, you may have an increase in your pain. I recommend icing the affected area for 20 minutes 3-4 times per day.It is recommende d that you refrain from any high level activities using the joint or limb that was injected for approximat gilmer 24-48 hours. Normal day-to-day activities are generally not a problem.PO SSIBLE SIDE EFFECTSInd ividuals with dark complexion s may experience some skin discolorat ion locally at the site of the injection. There is the possibilit y of an increase in discomfort within 48 hours following the injection. This is called a f lare . To help minimize the chances of this, please see the post-injec tion instructio ns above.Ther e is a less than 1% chance of an infection. If you notice any signs of infection (redness, warmth, drainage, fever greater than 100 degrees) please call our office or contact us through the portal [facility]. Health Concerns Section Related Observation LastModified by Organization Detai ls LastModified Time None Recorded Concern Status LastModified by Organization Details LastModified Time None Recorded Advance Directives Directive None Recorded Payers Insurance Date Sequence Insurance Name Policy Number Policy Bautista Covered Member ID Bautista Member ID Guarantor Name 03/20/2025 1 [place] (MEDICARE REPLACEMENT PPO) [id number] Emelia Gupta Toczek [id number] Emelia Toczek 03/20/2025 2 [place] [facility] Emelia W Toczek [id number] Emelia Toczek Notes Date Note Type Note [...] shoulder.Right Shoulder exam : ROM forward elevation 120 , ER 45 , IR to L5 there is mild tenderness [...] require going forward. Christopher Rogers PA-C [address] [address], [place], [address], [facility] 11/17/2023 13:20:13 12/05/2024 text/html I am seeing the patient today under the supervision ofDr. Jaramillo who was available but who did not see the patient. REASON FOR VISIT Patient comes to the office with known chronic rotator cuff tear of the Right shoulder. The patient has done well with conservative management for their shoulder pain. Recently reports increasing discomfort over the past several weeks without injury. Pain is generalized about the shoulder and discomfort is noted at night. PAST MEDICAL/SURGICAL HISTORY Current medications per intake sheet. PHYSICAL FINDINGS The patient is well appearing, in no apparent distress, alert and oriented to person, place and time. Gait is symmetric. No significant swelling, warmth or erythema about either shoulder. There is mild tenderness to palpation about the shoulder. Active range of motion of the shoulder is restricted with moderate pain through mid range manipulations. 4/5 strength of the shoulder. Good stability of the shoulder. Peripheral, vascular, lymphatic examination, skin, neurologic coordination, reflexes, sensation are within normal limits. ASSESSMENT chronic rotator cuff tear PLAN The patient has done well with conservative management in regards to the shoulder. Continued conservative management recommended. Moderating activities with the upper extremity recommended also. See procedure note. Follow up as needed. Alfonso Smith PA-C [address] [facility] [address], [place], [address], [facility] 12/05/2024 12:10:35 OBGyn Episode No OBEpisode recorded.
--- OUTSIDE RECORDS SUMMARY | 2025-06-15 22:05 | XMS_ITS | Clinical Summary ---
Author Organization [facility] Address [address] [place] [address] Phone Care Team Providers Care Physician Coder Name Role Phone Alfreda Mathew MD Primary Care Provider [phone] Allergies No known active allergies Medications mirtazapine (REMERON) 7.5 mg tablet Take 1 [...] 1 (one) time each day. Active omega 8-djf-ikr-fish oil (Fish OiL) 1,200 (144-216) mg capsule Take by mouth 1 (one) time each day. Active GARLIC ORAL Take by mouth 1 (one) time each day. Jazypz-UZL-MXJ (GARLIC/EPA OR) Active glucos sul 2KCl/msm/chond/ C/Mn (GLUCOSAMINE CHONDROITIN ORAL) Take by mouth 1 (one) time each day. Misc Natural Products (GNP Glucosamine Chondroitin) Tab Active dorzolamide-june oloL (COSOPT) 22.3-6.8 mg/mL ophthalmic solution 1 Drop 2 times daily. Active atorvastatin (LIPITOR) 40 mg tablet 1 Tablet daily. 5 Active fluoride, sodium, (DentaGeL) 1.1 % gel USE DIRECTED ONCE DAILY 7 Active fluticasone propionate (FLONASE) 50 mcg/actuation nasal spray Administer 2 sprays into each nostril 1 (one) time each day. 6 Active multivitamin (MULTIPLE VITAMINS ORAL) Take 1 tablet by mouth 1 (one) time each day. 1 Active Lactobacillus acidophilus (PROBIOTIC ORAL) USE DIRECTED. 7 Active olmesartan (BENICAR) 40 mg tablet Take 1 tablet (40 mg total) by mouth 1 (one) time each day. Active Eliquis 5 mg tablet TAKE 1 TABLET TWICE A DAY 180 tablet 3 5 Active famotidine (Pepcid) 40 mg tabletIndicatio ns:Gastroesopha geal reflux disease without esophagitis Take 1 tablet (40 mg total) by mouth 2 (two) times a day. 180 each 3 5 026 Active furosemide (LASIX) 20 mg tablet TAKE 1 TABLET DAILY 90 tablet 3 5 Active esomeprazole (NexIUM) [address] capsuleIndicati ons:Gastroesoph ageal reflux disease, unspecified whether esophagitis present Take 1 capsule (40 mg total) by mouth 2 (two) times a day. 180 each 3 5 026 Active esomeprazole (NexIUM) [address] capsuleIndicati ons:Gastroesoph ageal reflux disease, unspecified whether esophagitis present Take 1 capsule (40 mg total) by mouth 2 (two) times a day. 180 each 3 5 025 Discontin ued(Reord er) Active Problems Problem Noted Date Diagnosed Date Status post biventricular pacemaker 10/02/2024 Assessment & Plan (10/04/2024 7:00 AM EST): Orders: Transthoracic echocardiogram (TTE) complete with PRN contrast, bubble, strain, and 3D order panel; Future Cardiac holter monitor (<= 48 hours); Future Secondary hypercoagulable state ([facility] V24) Assessment & Plan (10/04/2024 7:00 AM EST): Atrioventricular block, complete (CMS/HCC V24, C MS/[facility] V28) 06/28/2023 Assessment & Plan (10/04/2024 7:00 AM EST): Atrial fibrillation with rap id ventricular response (CMS/[facility] V24, CMS/HCC V28) 09/17/2022 Chronic diastolic heart failure (CMS/[facility] V24, CM S/[facility] V28) 09/26/2020 Overview (07/17/2024): Last Assessment & Plan: [...] Sliding hiatal hernia 11/23/2018 Major depression, recurrent ([facility] V24) 2017 GERD (gastroesophageal reflux disease) 8 Assessment & Plan (01/03/2025 5:50 PM EDT): Continue as omeprazole 40 mg twice a day Add in famotidine with lunch and bedtime Continue GERD diet Orders: famotidine (Pepcid) 40 mg tablet; Take 1 tablet (40 mg total) by mouth 2 (two) times a day. Schatzki's ring 02/22/2018 Herpes labialis 07/30/2017 Aortic atherosclerosis ([facility] V24) 06/09/2017 Overview (07/17/2024): Comments: CT 05/19/12 Athersclerotic calcification of aortic arch Chronic headaches 06/09/2017 Osteopenia 06/09/2017 Paroxysmal atrial fibrillation ([facility] V24, CMS /[facility] V28) 03/15/2017 Overview (07/17/2024): Last Assessment & Plan: [...] Encounters Date Type Department Care Team Description 06/06/2025 Telephone [facility] [address] [place] [phone] Adama Borrero MD 05/30/2025 3:05 PM EDT Ancillary Procedure [facility] [address] [place] [phone] 05/30/2025 Telephone Gastroenterology - [address] [place] [phone] Glenn Echevarria MD 03/28/2025 Telephone [facility] [address] [facility] [address] [place] [address] Adama Borrero MD from Last 3 Months Immunizations Immunization Administration Dates Next Due Pneumococcal conjugate 13 [...] HISTORICAL HYSTERECTOMY OTHER SURGICAL HISTORY 12/22/2021 PROCEDURE: [place] ANES CARDIAC ELECTROPHYSIOL STDY W/RF ABLATION OTHER SURGICAL HISTORY PROCEDURE: HISTORY OTHER; COMMENT: Cardioversion COLONOSCOPY 12/18/2024 [facility] GI for LGIB, TA x2, tics throughout, int/ext rhoids. No active bleeding ESOPHAGOGASTRODUODENOSCOPY 07/02/2018 - 08/01/2018 Patchy mild erythematous mucosa in the gastric antrum with mild to chronic gastritis and mild reactive changes. H. pylori negative. Dr. Muir PACEMAKER INSERTION Left Medical History Medical History Date Comments Aortic atherosclerosis (CMS/HCC V24) 06/09/2017 DX:Aortic atherosclerosis ([facility]); COMMENT: Comments: CT 05/19/12 Athersclerotic calcification of aortic arch Chronic headaches 06/09/2017 DX:Chronic hea daches Congestive heart failure (CM S/HCC V24, CMS/HCC V28) 06/09/2017 DX:Congestive heart failure (HCC) GERD (gastroesophageal reflu x disease) 02/22/2018 DX:GERD (gastroesophageal re flux disease) Herpes labialis 07/30/2017 DX:Herpes labial is Hyperlipidemia 01/18/2017 DX:Hyperlipidemi a Hypertension 02/03/2017 DX:Hypertension Major depression, recurrent (CMS/HCC V24) 07/21/2018 DX:Major depression, recurre nt ([facility]) Osteopenia 06/09/2017 DX:Osteopenia Paroxysmal atrial fibrillati on (CMS/HCC V24, CMS/HCC V28) 03/15/2017 DX:Paroxysmal atrial fibril lation (HCC) Schatzki's ring 02/22/2018 DX:Schatzki's ri ng Sliding hiatal hernia 11/23/2018 DX:Sliding hiatal hernia Atrial fibrillation (CMS/HCC V24, CMS/HCC V28) DX:Atrial fibrillation (HCC) NIKIA (acute kidney injury) (C MS/HCC V24) DX:NIKIA (acute kidney injury) (HCC) Glaucoma Family History Medical History Relation Name Comments Heart failure Mother Hypertension Mother Other: Hyperlipidemia Mother Relation Name Status Comments Mother Social History Tobacco Use Types Packs/Day Years Used Date Smoking Tobacco: Never Smokeless Tobacco: Never Alcohol Use Standard Drinks/Week Comments No 0 (1 standard drink = 0.6 oz pur e alcohol) Interpersonal Safety Answer Date Record ed Physical Abuse Unrecognized value 01/25/2025 Verbal Abuse Unrecognized value 01/25/2025 Comments No Sex and Gender Information Value [...] Sign Reading Time Taken Comments Blood Pressure 152/82 01/25/2025 11:32 AM EDT Pulse 88 01/25/2025 11:32 AM EDT Temperature 36.8 C (98.2 F) 01/25/2025 11:12 AM EDT Respiratory Rate 18 01/25/2025 11:32 AM EDT Oxygen Saturation 100% 01/25/2025 11:32 AM EDT Inhaled Oxygen Concentration - - Weight 74.8 kg (165 lb) 01/25/2025 10:40 AM EDT Height 167.6 cm (5' 6 ) 01/25/2025 10:40 AM EDT Body Mass Index 26.63 01/25/2025 10:40 AM EDT Plan of Treatment Upcoming Encounters Date Type Department Care Team (Late st Contact Info) Description 07/24/2025 3:45 PM EST Office Visit [facility] [address] [place] [address] Paul Carvalho MD [address] [place] [address] [address] [place] [address] 08/27/2025 2:40 PM EST Office Visit [facility] [address] [facility] [address] [place] [address] Melva Caery NP [address] [place] [address] [address] [place] [address] 12/13/2025 2:30 PM EDT Ancillary Procedure [facility] [address] [facility] [address] [place] [address] Health Maintenance Due Date Last Done Comments RSV Immunization Adult Patients (1 - 1-dose 75+ series) 2014 DTaP,Tdap,and Td Vaccines (2 - Td or Tdap) 03/14/2020 03/14/2010 Cholesterol Screening (Lipid Panel) 07/05/2022 Medicare Annual Wellness Visit 07/05/2022 Osteoporosis Screening (Bone Density Screening) 07/05/2022 Social Influencers of Health Screening 07/05/2022 Depression Screening 08/02/2024 Hypertension/CHF/CAD Annual BMP Blood Test 09/27/2024 09/27/2023 COVID-19 Vaccine ( season) 2025 06/10/2022, 04/30/2021, 09/22/2020, Additional history exists Influenza Vaccine (#1) 2025 , 06/14/2023, 05/29/2022, Additional history exists Falls Risk Assessment 01/25/2026 01/25/2025 Colorectal Cancer Screening: Colonoscopy 01/26/2030 Pneumococcal Vaccine: 50+ Years Completed 02/17/2021, 07/08/2015, 07/08/2015, Additional history exists Zoster Vaccines Completed 07/07/2021, 02/17/2021 HIB Vaccines Aged Out No longer eligi [...] age to complete this topic Meningococcal B Vaccine Aged Out No l onger eligible based on patient's age to complete this topic RSV Immunization Patients Under 20 months Aged Out No longer eligible based on patient's age to complete this topic Varicella Vaccines Aged Out No longer eligible based on patient's age to complete this topic Medical Devices Implanted Type Area Python Django Developer Device Identifier Shelf Expiration Date Model / Serial / Lot IndiraMashed jobsSonal San 8 Shayan [id number] Implanted:10/31 (Quantity not on file) Cardiac Pacemaker [employer] EDORA 8 SHAYAN / [id number] / Procedures Procedure Name Priority Date/Time Associated Diagnosis Comments CARDIAC DEVICE CHECK- REMOTE- MURJ Routine 05/30/2025 3:00 PM EDT ANNUAL BMP BLOOD TEST Routine 09/27/2023 from Last 3 Months or Most Recently Relevant to Health Maintenance Results * Cardiac device check - Remote- MURJ (05/30/2025 3:00 PM EDT) Date Time Interrogation Session [id number] CV DEVICE CHECK Type Interrogation Session RemoteScheduled CV DEVICE CHECK Implantable Pulse Generator Python Django Developer BIO CV DEVICE CHECK Implantable Pulse Generator Type IPG CV DEVICE CHECK Implantable Pulse Generator Model Edora 8 SHAYAN CV DEVICE CHECK Implantable Pulse Generator Serial Number [id number] CV DEVICE CHECK Implantable Pulse Generator Implant Date 20221116 CV DEVICE CHECK Battery Remaining Percentage 75.00 CV DEVICE CHECK Battery Status Middle of Service CV DEVICE CHECK Satish Statistic RV Percent Paced 100.00 CV DEVICE CHECK Lead Channel RA Pacing Threshold Date 2025-05-28 CV DEVICE CHECK Lead Channel Sensing Intrinsic Amplitude 19.300 CV DEVICE CHECK Lead Channel Impedance Value 390 CV DEVICE CHECK Lead Channel RV Pacing Threshold Date 2025-05-28 CV DEVICE CHECK Lead Channel Setting Pacing Amplitude 2.600 CV DEVICE CHECK Lead Channel Setting Pacing Pulse Width 0.4 CV DEVICE CHECK Satish Setting Mode (NBG Code) VVI-CLS CV DEVICE CHECK Satish Setting Lower Rate Limit 70 CV DEVICE CHECK Satish Setting Maximum Sensor Rate 110 CV DEVICE CHECK Date of Service 2025-06-12 CV DEVICE CHECK Anatomical Region Laterality Modality Device Interroga tion 05/28/2025 12:5 5 AM EDT Impressions 05/30/2025 2:49 PM EDT Normal Remote: No Events * Normal Device Function * Alerts or events: None * Battery: Battery is at 75%, * Sensing, impedance and thresholds reviewed * Programmed parameters reviewed * Presenting rhythm reviewed * Heart Rate Histograms reviewed * No significant changes noted Heart Failure Diagnostic: Stable * Heart failure diagnostics assessed through the device * Status: Stable * No overt HF present Narrative Procedure Note Paul Carvalho MD - 05/30/2025 IMPRESSION: Normal Remote: No Events * Normal Device Function * Alerts or events: None * Battery: Battery is at 75%, * Sensing, impedance and thresholds reviewed * Programmed parameters reviewed * Presenting rhythm reviewed * Heart Rate Histograms reviewed * No significant changes noted Heart Failure Diagnostic: Stable * Heart failure diagnostics assessed through the device * Status: Stable * No overt HF present Paul Carvalho MD CV IMPLANTABLE CARDIAC DEV ICE PROCEDURES Final Result * Annual BMP Blood Test (09/27/2023) Annual [facility] Blood Test abstracted Historical Provider HEALTH MAINTENANCE Final Result from Last 3 Months or Most Recently Relevant to Health Maintenance [place] Advance Directives Documents on File Type Date Recorded Patient [facility] Labor Expl anation Health Care Decision (hx) 08/27/2014 [...] (hx) 12/24/2012 AD OROSCO DIRECTIVE Care Teams Physician Coder Relationship Specialty Start Date End Date Alfreda Mathew MD [address] [place] [address] PCP - General Internal Medicine 10/30/24
== END 2025-06-15 14:40 | disposition home or self-care (01) ==
LOC: HO.HMGCLDS 14:39
PROVIDERS: PCP Internal Medicine; Visit Provider Internal Medicine
DX: I48.91 Unspecified atrial fibrillation (principal); K92.2 Gastrointestinal hemorrhage, unspecified
CPT/HCPCS: 36415; 80053; 83540; 85025

== ENCOUNTER 2025-06-22 14:21 | Outpatient (REF) | payer MEDICARE, MEDICAID, SELFPAY ==
--- NOTE | ~2025-06-22 | XR_ITS ---
EXAMINATION: XR CHEST CLINICAL INFORMATION: R05.9 - Cough, unspecified COMPARISON: November 20, 2021. TECHNIQUE: PA and lateral views FINDINGS: Pulmonary reticular pattern. No hyperinflation. No consolidation, pleural fissure pneumothorax. Cardiomediastinal silhouette size is enlarged. There are 2 electrode leads in likely right heart chambers with a metallic reservoir in the anterior left upper chest, new since prior exam. S-shaped curvature of the thoracolumbar spine. Multilevel spondylosis. Osteopenia versus osteoporosis. Calcified plaque aorta. XR/XR chest 2V IMPRESSION: New left-sided pacemaker placement since prior examination. Cardiomegaly versus pericardial effusion. No acute airspace disease. Electronically signed by: Milton Amor MD 06/22/2025 03:43 PM EST
== END 2025-06-22 14:22 | disposition home or self-care (01) ==
LOC: HO.HMGCX 14:21
PROVIDERS: PCP Internal Medicine; Visit Provider Internal Medicine
DX: K21.9 Gastro-esophageal reflux disease without esophagitis (principal); K92.2 Gastrointestinal hemorrhage, unspecified; J44.9 Chronic obstructive pulmonary disease, unspecified; I48.91 Unspecified atrial fibrillation; F32.9 Major depressive disorder, single episode, unspecified; R05.9 Cough, unspecified
CPT/HCPCS: 71046; 94640; 96127; 99212

== ENCOUNTER 2025-06-22 14:21 | Outpatient (AMB) | payer MEDICARE, MEDICAID, SELFPAY ==
[2025-06-22 14:25] VITALS: BP 134/70; PULSE 73; RESP 16; TEMP 37.4; O2SAT 95; BMI 28.3
--- NOTE | 2025-06-22 14:25 | A.OFFPC_ITS ---
Vital Signs 06/22/25 14:25 Height 5 ft 5 in Weight 170 lb BMI 28.3 BP 134/70 Blood Pressure Location Rt brachial Position Sitting Respiration 16 Pulse 73 Pulse Source Pulse Oximeter Temp 99.4 F Temp Source Oral Pulse Oximetry (%) 95 Oxygen Delivery Method Room Air Intake Visit Reasons: Hospital follow up Intake Note: Pt is here today for a Hospital follow up. Pt states that she has been having cough, congestion, weakness for almost 3 weeks now. Allergies No Known Allergies Allergy (Verified 06/22/25 14:26) Medication List - Last Reconciled 06/22/25 by Alfreda Mathew MD albuterol sulfate 90 mcg/actuation 2 puffs inhalation Q6H PRN apixaban (Eliquis) 5 mg PO BID ascorbate calcium (vitamin C) 2 grams PO DAILY atorvastatin 40 mg PO DAILY calcium carbonate (Calcium 500) 1,000 mg PO DAILY cranberry fruit 500 mg PO DAILY dorzolamide-timolol 22.3-6.8 mg/mL ophthalmic (eye) esomeprazole magnesium 40 mg PO BID estradiol 0.01%(0.1mg/gram) pea size to urethra vaginally daily; fluoride (sodium) 1.1% 1 appl dental DAILY fluticasone propionate 50 mcg/actuation 1 spray intranasal BID PRN furosemide 20 mg PO DAILY gabapentin 100 mg PO BID garlic 5 mg PO DAILY pbnolzihuqr-N-Zszlwrqliyxpnww (Triple Flex Mood, Joint JUVENAL-e) PO lactobacillus combination no.4 (Probiotic) 3,000 mmu cells PO DAILY mirtazapine 7.5 mg PO BEDTIME multivitamin 1 tab PO DAILY omega-3 fatty acids (Fish Oil Concentrate) 1,200 PO daily; spironolactone 1 tab a day 2 hours after morning pills valacyclovir 500 mg PO BID walker Walker with seat Tobacco use date assessed: 06/22/25 Dental Screening Dental Screen Date: 10/24/24 HPI Hospital follow up HPI Details Pt presents for f/u follow-up of hospitalization at [facility] for lower GI bleed due to diverticulosis. Patient was transfused 2 PRBCs and the bleeding stopped spontaneously. Patient denies any recurrent hematochezia melena abdominal pain. patient complains of 3 weeks of productive cough with green sputum sinus congestion postnasal drip increasing wheezing and shortness or breath body aches and low-grade fever. Heart failure with preserved ejection fraction stable on current medications. AFib is rate controlled and anticoagulated on Eliquis. Patient has an appointment with air press operator in August to discuss Watchman procedure. [facility] Medical History GI bleed Edema Cough Dysuria Shoulder pain, right Venous insufficiency (chronic) (peripheral) Sciatica Depression Ear pain, left Hearing loss Radiculopathy of cervical spine GERD (gastroesophageal reflux disease) Light sensitivity Hyperlipidemia Diastolic CHF HTN (hypertension) Atrial fibrillation Surgical History H/O colonoscopy No pertinent past surgical history Family History Father No problems noted. Mother No problems noted. Sister No problems noted. Sister No problems noted. Son No problems noted. Daughter No problems noted. Social History Housing: House Alcohol intake: current Patient Tobacco Use Status: Never used Tobacco e-Cigarette/Vaping Use: Never Used service: No Current occupational status: retired Cognitive needs: No Hearing needs: No Vision needs: Yes Questionnaire PHQ-9 Over the last 2 weeks, how often have you been bothered by any of the following problems? 1. Little interest or pleasure in doing things: more than half the days 2. Feeling down, depressed, or hopeless: more than half the days 3. Trouble falling or staying asleep, or sleeping too much: more than half the days 4. Feeling tired or having little energy: nearly every day 5. Poor appetite or overeating: nearly every day 6. Feeling bad about yourself - or that you are a failure or have let yourself or your family down: several days 7. Trouble concentrating on things, such as reading the newspaper or watching television: nearly every day 8. Moving or speaking so slowly that other people could have noticed. Or the opposite - being so fidgety or restless that you have been moving around a lot more than usual: nearly every day 9. Thoughts that you would be better off or of hurting yourself in some way: not at all Total score: 19 Depression Screening Interpretation: Positive (Continue mirtazapine) Depression Screening Follow-up: Existing condition and In treatment Depression Screening Done: Yes Source: Developed by Drs. Jax Alonso, Kimberly Brady, Arie Schwarz and colleagues, with an educational adelaide from [employer]. Thrive Questionnaire Date Thrive assessed: 09/14/24 I am a: Parent/Caregiver What is your living situation today?: I have a steady place to live Within the past 12 months, did the food you bought not last and you didn't have the money to get more?: Never true Within the past 12 months, did you worry whether your food would run out before you got money to buy more?: Never true Do you have trouble paying for medicines?: No Do you have trouble getting transportation to medical appointments?: No Do you have trouble paying your heating and electricity bill?: No Do you have trouble taking care of your child, family member or friend?: Yes Do you have trouble with day-to-day activities such as bathing, preparing meals, shopping, managing finances, etc.?: Yes Are you currently unemployed and looking for a job?: No Are you interested in more education?: No Currently or been in a relationship where the following occur: No concerns reported THRIVE Score: 0 AUDIT C Alcohol Use Questionnaire (AUDIT-C) 2. How many drinks containing alcohol do you have on a typical day when you are drinking?: 1 or 2 Total Score: 0 SHAHAB-7 AMB Questionnaire SHAHAB-7 Date SHAHAB - 7 assessed: 10/24/24 Source: Developed by Drs. Jax Alonso, Kimberly Brady, Arie Schwarz and colleagues, with an educational adelaide from [employer]. Review of Systems Const All systems reviewed & are unremarkable except as noted in HPI and below ENT Reports no additional complaints Card Reports no additional complaints Resp Reports no additional complaints GI Reports no additional complaints Reports no additional complaints Physical exam (Primary Care) Vital Signs: Last Vital Signs Temp 99.4 F 06/22/25 14:25 Pulse 73 06/22/25 14:25 Resp 16 06/22/25 14:25 BP 134/70 06/22/25 14:25 Pulse Ox 95 06/22/25 14:25 Oxygen Delivery Method Room Air 06/22/25 14:25 BMI result Body Mass Index 28.3 Tobacco/Smoking Status: Tobacco use Status Tobacco use date assessed 06/22/25 06/22/25 14:40 Patient Tobacco Use Status Never used Tobacco 06/22/25 14:25 e-Cigarette/Vaping Use Never Used 06/22/25 14:25 PHQ-9: PHQ-9 Score PHQ-9: Total score 19 06/22/25 14:55 Depression Screening Interpretation: Positive (Continue mirtazapine) Depression Screening Follow-up: Existing condition and In treatment Thrive Assessment: Date of Thrive Assessment Date Thrive assessed 09/14/24 06/22/25 14:25 Currently or been in a relationship where the following occur: No concerns reported Const General: no acute distress HENMT Head: Yes normal to inspection Ears: hearing grossly normal bilaterally Resp Effort & Inspection: normal respiratory effort Auscultation: crackles bilateral at the base, wheezes and diminished lung sounds Cardio Rhythm: regular rhythm Heart sounds: S1 normal heart sound present and S2 normal heart sound present GI Inspection: Yes normal to inspection Palpation (GI): Soft to palpation Percussion: Yes normal to percussion Auscultation: normal bowel sounds Extrem Other: 1+ pitting edema bilaterally Office Procedures Nebulizer Treatment Nebulizer Treatment [id number]-Prstlapau/MDI RX initial, or Nebulizer Subsequent Treatment Office Meds albuterol sulfate 2.5 mg/3 mL (0.083 %) solution for nebulization Performing Provider: Alfreda Mathew MD Performing Location: [facility] Administered by: Hetal Blount RN on 06/22/25 15:17 Dose Route Admin Location Dispensed Lot Number Expiration Date [facility] Commutator Inspector 2.5 mg inhalation 3 mL [id number] 10/30/26 8913-5176-01 MYLAN Coding Level of Care Code Est Pt Level 4 (96786) Diagnoses COPD (chronic obstructive pulmonary disease) J44.9 Atrial fibrillation I48.91 Depression F32.9 GI bleed K92.2 CPT Codes Nebulizer Treatment - Nebulizer Treatment, initial or subsequent: 65521- Nebulizer/MDI RX initial, or Nebulizer Subsequent Treatment ([id number]) Assessment & Plan Assessment & Plan (1) COPD (chronic obstructive pulmonary disease): Code(s): J44.9 - Chronic obstructive pulmonary disease, unspecified Category: Medical Plan: For COPD exacerbation and recent hospitalization Z-Ortega and cefuroxime, prednisone taper and albuterol via nebulizer are prescribed. Chest x-ray will be obtained (2) Atrial fibrillation: Comment: f/u Dr. Marin , s/p multiple ablations. s/p pacemaker Code(s): I48.91 - Unspecified atrial fibrillation Category: Medical Plan: Continue Eliquis. Follow-up with cardiology for Watchman procedure (3) Depression: Code(s): F32.9 - Major depressive disorder, single episode, unspecified Category: Medical Plan: Continue mirtazapine (4) GI bleed: Comment: CTA diverticular bleed 05/04/2025 admitted [facility] Code(s): K92.2 - Gastrointestinal hemorrhage, unspecified Category: Medical Plan: Monitor CBC continue stool softener Orders: Orders AMB Nebulizer Treatment Today J44.9 - Chronic obstructive pulmonary disease, unspecified IRON PROFILE 1 Month I48.91 - Unspecified atrial fibrillation, J44.9 - Chronic obstructive pulmonary disease, unspecified, K92.2 - Gastrointestinal hemorrhage, unspecified Complete Blood Count Auto Diff 1 Month I48.91 - Unspecified atrial fibrillation, J44.9 - Chronic obstructive pulmonary disease, unspecified, K92.2 - Gastrointestinal hemorrhage, unspecified Comprehensive Met. Panel 1 Month I48.91 - Unspecified atrial fibrillation, J44.9 - Chronic obstructive pulmonary disease, unspecified, K92.2 - Gastrointestinal hemorrhage, unspecified Medications: New azithromycin For 250 mg dose pack: take 500 mg today (day 1), then 250 mg for 4 days (days 2-5) PO 6 tabs 0RF cefuroxime axetil 250 mg PO Q12H 14 tabs 0RF prednisone Four tablets p.o. q.d. for 3 days then 3 tablets p.o. q.d. for 3 days then 2 tablets p.o. q.d. for 3 days then 1 tablet p.o. q.d. for 3 days 10 mg PO DAILY 30 tabs 0RF codeine-guaifenesin 10-200 mg/5 mL 5 mL PO Q6H 473 mL 0RF benzonatate 100 mg PO TID PRN 30 caps 0RF cough albuterol sulfate 0.63 mg (3 mL) inhalation Q6H 90 mL 0RF nebulizers As directed 1 ea 0RF J44.9 - Chronic obstructive pulmonary disease, unspecified Changed From gabapentin 100 mg PO TID 270 caps 3RF To gabapentin 100 mg PO BID
--- OUTSIDE RECORDS SUMMARY | 2025-06-22 14:43 | XMS_ITS | Encounter Summary ---
Author Organization [facility] Address [address] [address] Phone Care Team Providers Care Rehab Department Manager Name Role Phone Alfreda Mathew MD Primary Care Provider [phone] Reason for Visit * Reason Onset Date Comments Med Refill 08/27/2024 Encounter Details Date Type Department Care Team (Late st Contact Info) Description 08/27/2024 Refill [facility] [address] [address] Moose Sharif MD [facility] [address] [address] Social History Tobacco Use Types [...] Office Visit [facility] [address] [address] Moose Sharif MD [address] [address] documented as of this encounter Visit Diagnoses Not on filedocumented in this encounter Care Teams Rehab Department Manager Relationship Specialty Start Date End Date Alfreda Mathew MD [facility] [place] [address] PCP - General Internal Medicine 11/19/23 documented as of this encounter
--- OUTSIDE RECORDS SUMMARY | 2025-06-22 14:43 | XMS_ITS | Data Portability ---
Author Organization [facility] Address [address] [place] [address] Care Team Providers Care Storage Consultant Name Role Phone DARELL SHELIA Primary Care [...] Address Organization Details Recorded Time No complaints [id number] Active Status : 'A'; Not Available [facility] 09:24:59 Problem Notes None recorded. Procedures Surgical History Date Name Laterality Status Provider Name and Address Organization Details Recorded Time 5 Sports Shoulder completed Alfonso Smith PA-C [address], [place], [address], [facility] 12/05/2024 12:10:00 4 Sports Shoulder completed Christopher Rogers PA-C [address], [place], [address], [facility] 11/17/2023 13:19:22 Imaging Results None recorded. Procedure Notes None recorded. Medical Equipment None Reported. Allergies Allergen ID Allergen Name Allergen Category Reaction Reaction Severity Criticality Documentation Date Start Date Code Code System Note Provider Name and Address Organization Details Recorded Time 567348 ibuprofen medicatio n Not available Not available Not available 10/04/20232020 5640 RxNorm Aller gyRea ction : 'blee ding' ; NICO DOVE vi [facility] 13:07:07 805547 Non-stero idal anti-infl ammatory agent (substanc e) medicatio n Not available Not available Not available 10/04/20232020 13304 5008 SNOMED NICO LARABIENVENIDO lebron [facility] 13:07:09 Medications Name Sig Start Date Stop [...] Updated DateTime 11/17/2023 167.64 cm 28.2 kg/m2 88674.66 g NICO DOVE [facility] 11/17/2023 13:06:54 Date Recorded Body weight Body mass index (BMI) Body height Provider Name and Address Organization Details Last Updated DateTime 12/05/2024 74057.74 g 26.6 kg/m2 167.64 cm Jessenia Amaya [facility] 12/05/2024 11:30:46 Social History None recorded. Functional Status None recorded. Mental Status None recorded. Family History Nothing Reported. Medical History Condition Response Heart Trouble Y Kidney/Bladder Problems Y Arthritis Y Headaches Y Hypertension Y Cholesterol Y Gynecological HistoryNo gynecological history recorded. 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 Christopher Rogers PA-C [address] [address], [place], [address], [facility] 11/17/2023 13:20:13 12/05/2024 text/html [...] up as needed. Alfonso Smith PA-C [address], [place], [address], [facility] [place] 12/05/2024 12:10:35 OBGyn Episode No OBEpisode recorded.
--- OUTSIDE RECORDS SUMMARY | 2025-06-22 14:43 | XMS_ITS | Clinical Summary ---
Author Organization [facility] Address [address] [place] [address] Phone Care Team Providers Care Concessionist Name Role Phone Alfreda Mathew MD Primary Care Provider [phone] Allergies No known active allergies Medications mirtazapine [...] 1 (one) time each day. Active omega 3-pet-cge-fish oil (Fish OiL) 1,200 (144-216) mg capsule Take by mouth 1 (one) time each day. Active GARLIC ORAL Take by mouth 1 (one) time each day. Uxhxmw-[id number] (GARLIC/EPA OR) Active glucos sul 2KCl/msm/chond/C /Mn (GLUCOSAMINE CHONDROITIN ORAL) Take by mouth 1 (one) time each day. Misc Natural Products (GNP Glucosamine Chondroitin) Tab Active dorzolamide-ronny loL (COSOPT) 22.3-6.8 mg/mL ophthalmic solution 1 Drop [...] 3 5 Active famotidine (Pepcid) 40 mg tabletIndication s:Gastroesophage al reflux disease without esophagitis Take 1 tablet (40 mg total) by mouth 2 (two) times a day. 180 each 3 5 01/04/20 26 Active furosemide (LASIX) 20 mg tablet TAKE 1 TABLET DAILY 90 tablet 3 5 Active esomeprazole (NexIUM) [address] capsuleIndicatio ns:Gastroesophag eal reflux disease, unspecified whether esophagitis present Take 1 capsule (40 mg total) by mouth 2 (two) times a day. 180 each 3 5 05/17/20 26 Active Active Problems Problem Noted Date Diagnosed Date Status post biventricular pacemaker 10/02/2024 Assessment & Plan (10/04/2024 7:00 AM EST): Orders: Transthoracic echocardiogram (TTE) complete with PRN contrast, bubble, strain, and 3D order panel; Future Cardiac holter monitor (<= 48 hours); Future Secondary hypercoagulable state (CMS/HCC V24) Assessment & Plan (10/04/2024 7:00 AM EST): Atrioventricular block, complete (CMS/HCC V24, C MS/HCC V28) 06/28/2023 Assessment & Plan (10/04/2024 7:00 AM EST): Atrial fibrillation with rap id ventricular response (CMS/HCC V24, CMS/HCC V28) 09/17/2022 Chronic diastolic heart failure (CMS/[facility] V24, CM S/HCC V28) 09/26/2020 Overview (07/17/2024): Last Assessment & [...] Sliding hiatal hernia 11/23/2018 Major depression, recurrent ([facility] V24) 2017 GERD (gastroesophageal reflux disease) 8 Assessment & Plan (01/03/2025 5:50 PM EDT): Continue as omeprazole 40 mg twice a day Add in famotidine with lunch and bedtime Continue GERD diet Orders: famotidine (Pepcid) 40 mg tablet; Take 1 tablet (40 mg total) by mouth 2 (two) times a day. Schatzki's ring 02/22/2018 Herpes labialis 07/30/2017 Aortic atherosclerosis ([facility] V24) 06/09/2017 Overview (07/17/2024): Comments: CT 05/19/12 Athersclerotic calcification of aortic arch Chronic headaches 06/09/2017 Osteopenia 06/09/2017 Paroxysmal atrial fibrillation ([facility] V24, [facility] V28) 03/15/2017 Overview (07/17/2024): Last Assessment & [...] Type Department Care Team Description 06/06/2025 Telephone [facility] [address] [place] [address] Adama Borrero MD 05/30/2025 3:05 PM EDT Ancillary Procedure [facility] [address] [place] [address] 05/30/2025 Telephone Gastroenterology - [address] [place] [address] Glenn Echevarria MD 03/28/2025 Telephone [facility] [address] [place] [address] Adama Scott MD from Last 3 Months Immunizations Immunization [...] HISTORICAL HYSTERECTOMY OTHER SURGICAL HISTORY 12/22/2021 PROCEDURE: NM ANES CARDIAC ELECTROPHYSIOL STDY W/RF ABLATION OTHER SURGICAL HISTORY PROCEDURE: HISTORY OTHER; COMMENT: Cardioversion COLONOSCOPY 12/18/2024 [facility] GI for LGIB, TA x2, tics throughout, int/ext rhoids. No active bleeding ESOPHAGOGASTRODUODENOSCOPY 07/02/2018 - 08/01/2018 Patchy mild erythematous mucosa in the gastric antrum with mild to chronic gastritis and mild reactive changes. H. pylori negative. Dr. Muir PACEMAKER INSERTION Left Medical History Medical History Date Comments Aortic atherosclerosis ([facility] V24) 06/09/2017 DX:Aortic atherosclerosis ([facility]); COMMENT: Comments: CT 05/19/12 Athersclerotic calcification of aortic arch Chronic headaches 06/09/2017 DX:Chronic hea daches Congestive heart failure (CM S/[facility] V24, [facility] V28) 06/09/2017 DX:Congestive heart failure ([facility]) GERD (gastroesophageal reflu x disease) 02/22/2018 DX:GERD (gastroesophageal re flux disease) Herpes labialis 07/30/2017 DX:Herpes labial is Hyperlipidemia 01/18/2017 DX:Hyperlipidemi a Hypertension 02/03/2017 DX:Hypertension Major depression, recurrent ([facility] V24) 07/21/2018 DX:Major depression, recurre nt ([facility]) Osteopenia 06/09/2017 DX:Osteopenia Paroxysmal atrial fibrillati on ([facility] V24, [facility] V28) 03/15/2017 DX:Paroxysmal atrial fibril lation ([facility]) Schatzki's ring 02/22/2018 DX:Schatzki's ri ng Sliding [...] Description 07/24/2025 3:45 PM EST Office Visit [facility] [address] [place] [address] Paul Carvalho MD [address] [place] [address] [place] [address] 08/27/2025 2:40 PM EST Office Visit [facility] [address] [place] [address] Melva Carey NP [address] [place] [address] [place] [address] 12/13/2025 2:30 PM EDT Ancillary Procedure [facility] [address] [place] [address] Health Maintenance Due Date Last Done Comments [...] this topic Medical Devices Implanted Type Area Human Resources Partner Device Identifier Shelf Expiration Date Model / Serial / Lot Bhavana San 8 Shayan [id number] Implanted:10/31 (Quantity not on file) Cardiac Pacemaker [employer] EDORA 8 SHAYAN / [id number] / Procedures Procedure Name Priority Date/Time Associated Diagnosis Comments CARDIAC DEVICE CHECK- REMOTE- MURJ Routine 05/30/2025 3:00 PM EDT ANNUAL BMP BLOOD TEST Routine 09/27/2023 from Last 3 Months or Most Recently Relevant to Health Maintenance Results * Cardiac device check - Remote- MURJ (05/30/2025 3:00 PM EDT) Date Time Interrogation Session [id number] CV DEVICE CHECK Type Interrogation Session RemoteScheduled CV DEVICE CHECK Implantable Pulse Generator Human Resources Partner BIO CV DEVICE CHECK Implantable Pulse Generator Type IPG CV DEVICE CHECK Implantable Pulse Generator Model Edtrent 8 SHAYAN CV DEVICE CHECK Implantable Pulse Generator Serial Number [id number] CV DEVICE CHECK Implantable Pulse Generator Implant [...] Lower Rate Limit 70 CV DEVICE CHECK Satihs Setting Maximum Sensor Rate 110 CV DEVICE [...] * Annual BMP Blood Test (09/27/2023) Annual BMP Blood Test abstracted Historical Provider HEALTH MAINTENANCE Final Result from Last 3 Months or Most Recently Relevant to Health Maintenance [place] Advance Directives Documents on File Type Date Recorded Patient Mill Labor Supervisor Expl anation Health Care Decision (hx) 08/27/2014 [...] (hx) 12/24/2012 AD OROSCO DIRECTIVE Care Teams Concessionist Relationship Specialty Start Date End Date Alfreda Mathew MD [address] [place] [address] PCP - General Internal Medicine 10/30/24
--- OUTSIDE RECORDS SUMMARY | 2025-06-22 14:43 | XMS_ITS | Clinical Summary ---
Author Organization [facility] Address [address] [place] [address] Phone Care Team Providers Care Compensation And Hris Analyst Name Role Phone Alfreda Mathew MD Primary Care Provider [phone] Medications apixaban (ELIQUIS) 2.5 MG tablet Take [...] CRANBERRY FRUIT PO Take by mouth Active [id number] (GARLIC/EPA PO) Take by mouth Active furosemide [...] Office Visit [facility] [address] [phone] Moose Sharif MD Chronic kidney disease, stage 2 (mild) (Primary Dx); Essential (primary) hypertension 04/22/2025 Orders Only [facility] [address] [phone] Moose Sharif MD Chronic kidney disease, stage [...] Office Visit [facility] [address] [phone] Moose Sharif MD [address] [address] Health Maintenance Due Date Last [...] Creatinine, Ur 83.7 Not Estab. mg/dL [facility] Protein, Ur 15.8 Not Estab. mg/dL [facility] Urine Protein/Creatin ine Ratio 189 0 - 200 mg/g creat [facility] Urine specimen (specimen) Urine specimen obtained by clean catch procedure / Unknown 05/10/2025 12:55 PM EDT 05/10/2025 us Moose Sharif MD LAB URINE ORDERABLES Final Resu lt [facility] [address] [place] [address] * (ABNORMAL) Renal function panel (05/10/2025 12:55 PM EDT) Pathologist [facility] Glucose 100(H) 70 - 99 mg/dL [facility] BUN 12 8 - 27 mg/dL [facility] Creatinine 0.80 0.57 - 1.00 mg/dL [facility] eGFR CKD-EPI CR 2020 72 >59 mL/min/1.7 3 [facility] BUN/Creatinine Ratio 15 12 - 28 [facility] Sodium 138 134 - 144 mmol/L [facility] Potassium 3.7 3.5 - 5.2 mmol/L [facility] Chloride 98 96 - 106 mmol/L [facility] Bicarbonate (CO2) 24 20 - 29 mmol/L [facility] Calcium 9.4 8.7 - 10.3 mg/dL [facility] Albumin 4.0 3.7 - 4.7 g/dL [facility] Phosphorus 3.4 3.0 - 4.3 mg/dL [facility] Blood specimen (specimen) Venous blood / Unknown 05/10/2025 12:55 PM EDT 05/10/2025 us Moose Sharif MD LAB BLOOD ORDERABLES Final Resu lt [facility] [address] [place] [phone] from Last 3 Months Insurance [facility] [place] [facility] [place] Care Teams Compensation And Hris Analyst Relationship Specialty Start Date End Date Alfreda Mathew MD [address] [place] [address] PCP - General Internal Medicine 11/19/23
== END 2025-06-22 15:33 | disposition home or self-care (01) ==
LOC: HO.HMCC 14:22
PROVIDERS: PCP Internal Medicine; Visit Provider Internal Medicine
DX: J44.9 Chronic obstructive pulmonary disease, unspecified (principal); I48.91 Unspecified atrial fibrillation; F32.9 Major depressive disorder, single episode, unspecified; K92.2 Gastrointestinal hemorrhage, unspecified

== ENCOUNTER → 2025-06-22 15:30 | Outpatient (BNV) | payer MEDICARE, MEDICAID, SELFPAY | PROVIDERS: PCP Internal Medicine; Visit Provider Radiology Diagnostic Radiology | DX: R05.9 Cough, unspecified (principal) | CPT/HCPCS: 71046 ==